=== PATIENT | male | born 1945 | race African-American/Black ===

== ENCOUNTER → 2021-04-23 | Outpatient (CLI) | payer MEDICARE, MEDICAID ==
[2019-08-27 15:00] VITALS: BP 162/85
[~2021-04-23] MED LIST: ACET325T21 PO; ASCO500C PO; BUSP5TAB PO; CHOL500062 PO; CYAN-25 PO; LEVO75TA5 PO; LISI20TA18 PO; MELO7.5T29 PO; METF10007 PO; METF500T16 PO; MULT-245 PO; ONDA4TAB7 PO; POLY2500 PO; SERT50TA PO; VITA1TAB19 PO
--- NOTE | 2021-04-23 15:44 | CARD ---
MR#: [id number] Date of Study: 04/23/2021 Ordering Physician: KAYA ADAM, Referring Physician: KAYA ADAM, Tech: Lyubov Nava [facility] APPROVED REPORT EXAM: Two-dimensional and M-mode echocardiogram with Doppler and color Doppler. Other Information Quality : AverageHR: 72bpm Rhythm : NSR INDICATION RISK FACTORS Hypertension Obesity Diabetes 2D DIMENSIONS RVDd3.5 (2.9-3.5cm)Left Atrium(2D)3.3 (1.6-4.0cm) IVSd1.2 (0.7-1.1cm)Aortic Root(2D)3.2 (2.0-3.7cm) LVDd3.9 (3.9-5.9cm)LVOT Diameter2.1 (1.8-2.4cm) PWd1.1 (0.7-1.1cm)LVDs2.7 (2.5-4.0cm) FS (%) 29.0 %SV36.4 ml Aortic Valve AoV Peak Andrey.99.1cm/sAoV VTI16.7cm AO Peak GR.3.9mmHgLVOT Peak Andrey.91.0cm/s AO Mean GR.2mmHgAVA (VMAX)3.31cm2 Mitral Valve MV E Wxbhrkkz94.1cm/sMV DECEL [id number] MV A Tojkxwau55.6cm/sE/A Ratio0.8 Pulmonary Valve PV Peak Ufssbsim005.8cm/s Tricuspid Valve TR P. Dnfrhzep944hr/sTR Peak Gr.24mmHg LEFT VENTRICLE The left ventricle is normal size. There is borderline to mild concentric left ventricular hypertroph y. The left ventricular systolic function is normal and the ejection fraction is within normal range. LV ejection fraction of 50 to 55%. There is normal LV segmental wall motion. Transmitral Doppler fl ow pattern is Grade I-abnormal relaxation pattern. RIGHT VENTRICLE The right ventricle is normal size. There is normal right ventricular wall thickness. The right ventr icular systolic function is normal. ATRIA The left atrium size is normal. The right atrium size is normal. The interatrial septum is intact wit h no evidence for an atrial septal defect or patent foramen ovale as noted on 2-D or Doppler imaging. AORTIC VALVE The aortic valve is normal in structure and function. Doppler and Color Flow revealed trace aortic re gurgitation. There is no significant aortic valvular stenosis. There is no aortic valvular vegetation . MITRAL VALVE The mitral valve is normal in structure and function. There is no evidence of mitral valve prolapse. There is no mitral valve stenosis. Doppler and Color Flow revealed no mitral valve regurgitation. TRICUSPID VALVE The tricuspid valve is normal in structure and function. Doppler and Color Flow revealed trace tricus pid regurgitation. Estimated PAP 30 mmHg. There is no tricuspid valve stenosis. PULMONIC VALVE The pulmonary valve is normal in structure and function. Doppler and Color Flow revealed no pulmonic valvular regurgitation. GREAT VESSELS The aortic root is normal in size. The ascending aorta is normal in size. The IVC is normal in size a nd collapses >50% with inspiration. PERICARDIAL EFFUSION There is no evidence of significant pericardial effusion. Critical Notification Critical Value: No <Conclusion> The left ventricle is normal size. The left ventricular systolic function is normal and the ejection fraction is within normal range. LV ejection fraction of 50 to 55%. There is normal LV segmental wall motion. There is borderline to mild concentric left ventricular hypertrophy. Doppler and Color Flow revealed trace aortic regurgitation. There is no significant aortic valvular stenosis. Doppler and Color Flow revealed no mitral valve regurgitation. Doppler and Color Flow revealed trace tricuspid regurgitation. Estimated PAP 30 mmHg. Signed by : Saurabh Murillo MD Electronically Approved : 04/23/2021 15:43:28
== END ==
LOC: ECHO 08:56
PROVIDERS: ATTEND Internal Medicine Cardiovascular Disease
DX: I51.7 Cardiomegaly (principal); R78.81 Bacteremia
CPT/HCPCS: 93306

== ENCOUNTER 2021-08-10 11:14 | Inpatient (IN) | payer MEDICARE, MEDICAID ==
[~2021-08-10] VITALS: Ht 175.3 cm; Wt 95.7 kg
[2021-08-10] MEDS ORDERED: ACET325T21 PO (17:08)
[2021-08-10] MEDS ORDERED: LEVO88TA4 PO (17:08)
[2021-08-10] MEDS ORDERED: ASCO500C PO (17:08)
[2021-08-10] MEDS ORDERED: FERR325T14 PO (17:08)
[2021-08-10] MEDS ORDERED: ONDA4TAB12 PO (17:08)
[2021-08-10] MEDS ORDERED: IPRA3AMP29 NEB (17:08)
[2021-08-10] MEDS ORDERED: LACT1CAP19 PO (17:08)
[2021-08-10 17:10] VITALS: BP 149/75
[2021-08-10] MEDS ORDERED: VIT1TABL PO (17:11)
[2021-08-10] MEDS ORDERED: SERT20OR3 PO (17:11)
[2021-08-10] MEDS ORDERED: VITS42.55 TP (17:11)
[2021-08-10] MEDS ORDERED: BUSP5TAB PO (17:11)
[2021-08-10] MEDS ORDERED: VITS A & D/LANOLIN TOPICAL OINTMENT 42GM TUBE. TP PRN (17:15)
[2021-08-10] MEDS ORDERED: ONDANSETRON ODT 4 MG TAB.RAPDIS. PO PRN (17:15)
[2021-08-10] MEDS ORDERED: ACETAMINOPHEN 325 MG TABLET. PO PRN (17:15)
[2021-08-10] MEDS: FERROUS SULFATE 325 MG TABLET. PO SCH (17:46)
[2021-08-10 19:55] VITALS: BP 141/67
[2021-08-10] MEDS: IPRATRPIUM/ALBUTEROL 0.5/2.5MG 3 ML NEBU. NEB SCH (20:16)
[2021-08-10] MEDS: LACTOBACILLUS RHAMNOSUS GG 1 CAPSULE. PO SCH (21:35)
[2021-08-10] MEDS: busPIRone 5 MG TABLET. PO SCH (21:35)
[2021-08-10] MEDS: AMOXICILLIN/K CLAV 500/125MG TABLET. PO SCH (21:35)
[2021-08-10 23:32] VITALS: BP 145/67
[2021-08-11] VITALS (7 sets, daily range): BP systolic 144–168; BP diastolic 70–77
[2021-08-11] MEDS: LEVOTHYROXINE 88 MCG TABLET PO SCH (06:24)
[2021-08-11] MEDS: FOLIC/VIT B COMP W-C (RENAL) TABLET. PO SCH (08:16)
[2021-08-11] MEDS: AMOXICILLIN/K CLAV 500/125MG TABLET. PO SCH ×2 (08:16→21:01)
[2021-08-11] MEDS: MULTIVITAMIN with MINERAL TABLET. PO SCH (08:16)
[2021-08-11] MEDS: SERTRALINE 25 MG TABLET. PO SCH (08:17)
[2021-08-11] MEDS: ASCORBIC ACID 500 MG TABLET PO SCH (08:17)
[2021-08-11] MEDS: LACTOBACILLUS RHAMNOSUS GG 1 CAPSULE. PO SCH ×2 (08:17→21:01)
[2021-08-11] MEDS: FERROUS SULFATE 325 MG TABLET. PO SCH ×2 (08:17→16:56)
[2021-08-11] MEDS: busPIRone 5 MG TABLET. PO SCH ×2 (08:17→21:01)
[2021-08-11] MEDS: IPRATRPIUM/ALBUTEROL 0.5/2.5MG 3 ML NEBU. NEB SCH ×4 (08:28→20:21)
[2021-08-11] MEDS ORDERED: IODIXANOL 320 MG/ML 50ML VIAL. ONE (10:27)
[2021-08-11] MEDS ORDERED: LIDOCAINE WITH 8.4% SOD BICARB 3 ML DISP.SYRIN. ONE (10:27)
[2021-08-11] MEDS ORDERED: MIDAZOLAM HCL/PF 2 MG/2 ML VIAL. ONE (10:48)
[2021-08-11] MEDS ORDERED: LIDOCAINE WITH 8.4% SOD BICARB 3 ML DISP.SYRIN. IJ ONE (11:30)
[2021-08-11] MEDS ORDERED: IODIXANOL 320 MG/ML 100 ML VIAL. IART ONE (11:30)
[2021-08-11 12:07] LABS: HEMATOCRIT 25.3 % (39.0-53.0); HEMOGLOBIN 7.9 g/dL (13.0-17.5); RED BLOOD COUNT 3.37 x10^6/uL (4.30-5.70); WHITE BLOOD COUNT 11.5 x10^3/uL (4.0-11.0)
[2021-08-11 12:16] LABS: CALCIUM 8.6 mg/dL (8.5-10.1); CREATININE 1.9 mg/dL (0.7-1.3); GFR 41.8; POTASSIUM 4.4 mmol/L (3.5-5.1)
--- NOTE | 2021-08-11 13:19 | HP ---
DATE OF SERVICE: 08/11/2021 ADMIT DATE: 08/10/2021 HISTORY OF PRESENT ILLNESS: The patient is a 75-year-old -Surinamese male patient, a resident at [facility] [place] [place] and [facility], who has been admitted to [facility] numerous times with multiple medical problems including a recurrent episode of gross hematuria as he has bladder cancer with bilateral hydronephrosis and has had received multiple blood transfusions. He is mostly bedbound and on his last admission to [facility], he was noted to have markedly swollen right lower extremity compared to the left and venous Doppler ultrasound showed that the patient has nonocclusive thrombus in the common femoral vein, femoral vein and popliteal vein. However, visualized calf veins appear patent on limited evaluation given that he has recurrent episode of gross hematuria that makes him not a good candidate for anticoagulation, a decision was made to transfer him to [facility] after I discussed this with him and his daughter for placement of an IVC filter. The patient himself denied any chest pain, shortness of breath, cough, phlegm or hemoptysis. PAST MEDICAL HISTORY: Significant for benign prostatic hypertrophy with bladder outlet obstruction requiring indwelling Latif catheter, hypertension, hypothyroidism, chronic anemia with recurrent episode of gross hematuria, type 2 diabetes mellitus, seems reasonably controlled. He has dementia without behavioral disturbances, did have a history of methicillin-resistant Staphylococcus aureus pneumonia and methicillin-resistant Staphylococcus aureus bacteremia, treated for a prolonged period of time with daptomycin and Zyvox. He has also bladder cancer for which he was followed by urologist at [facility], however, he was lost for followup for almost 2 years. PAST SURGICAL HISTORY: Significant for ventriculoperitoneal shunt placement for what seemed to be also primary normal pressure hydrocephalus. FAMILY HISTORY: Unremarkable. SOCIAL HISTORY: He is a resident at [facility]. He does not smoke, drink alcohol, or recreational drugs. He is mostly bedbound, wheelchair bound. His daughter is his DPOA. ALLERGIES: He has no known drug allergies. MEDICATIONS: He is currently on the following medications: He is on vitamin B complex, vitamin C 1 tablet once a day, sertraline 12.5 mg once a day, multivitamin 1 tablet once a day, ascorbic acid 500 mg daily, levothyroxine 88 mcg daily, lactobacillus rhamnosus 1 capsule twice a day, buspirone 5 mg twice a day. He was also on Augmentin 500/125 mg one tablet twice a day with food to finish the course of treatment for most recent healthcare-associated pneumonia. He is also on ferrous sulfate 325 mg twice a day, albuterol and Atrovent 3 mL by nebulizer 4 times a day, vitamin A and D ointment applied topically. He is on ondansetron 4 mg every 4 hours as needed. He is also on acetaminophen 650 mg every 4 hours as needed. PHYSICAL EXAMINATION: GENERAL: When I examined him, he looked pale, but no jaundice, cyanosis, no lymphadenopathy, no thyromegaly, no jugular venous distention. No limb edema. VITAL SIGNS: His heart rate was 70, blood pressure 163/77, temperature was 98.6, respiratory rate was 18 and oxygen saturation was 98%. HEAD, EYES, EARS, NOSE AND THROAT: Normocephalic, atraumatic. NECK: Supple. HEART: Normal first and second heart sounds. No gallop or murmur. CHEST: Clear to auscultation, no crepitation or rhonchi. ABDOMEN: Distended, soft, nontender. NEUROLOGIC: He is demented, but without any lateralizing sign. All his cranial nerves are intact. He moves extremities without difficulty; however, he is mostly bedbound, wheelchair bound. He has an indwelling Latif catheter. ASSESSMENT AND PLAN: In summary, this is a 75-year-old -Surinamese male patient who was transferred from [facility] with right lower extremity deep vein thrombosis. He has also recurrent episodes of gross hematuria as he has bladder cancer. We did consult the interventional radiologist for IVC filter placement. I will observe him here. I will repeat his lab work and as he might require blood transfusion and if he is stable tomorrow, I will discharge him back to [facility] [place] [place] and Rehab. VALERIA/AARTI DR: Parminder TID: [id number]
--- NOTE | 2021-08-11 13:36 | NUR ---
SW following. Discussed with RN. 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 Wound care following. SULY requested COVID PCR for return to facility. SULY will continue to follow.
--- NOTE | 2021-08-11 16:26 | RAD ---
08/11/2021 Procedures: 1. Diagnostic Inferior vena cavogram. 2. Inferior vena cava filter placement. Clinical Indication: DVT, contraindication anticoagulation. Consent: The procedure was explained in its entirety to the patient or the patients designated repres entative by a member of the treatment team, including a discussion of the risks, benefits and commonl y accepted alternatives to the procedure, as well as the expected consequences of no therapy whatsoev er. Discussion of the risks included, but was not limited to, those that are most frequent and thos e that are rare but possibly severe or life-threatening, as well as the possibility of unforeseen com plications. Ultrasound guided access: Ultrasound evaluation showed a patent right internal jugular vein. The right neck prepped and draped using maximal sterile technique and one percent lidocaine was used for local anesthesia. All elements of maximum sterile barrier technique was utilized. Under ultrasoun d guidance, a singlewall puncture was made into the right internal jugular vein followed by placement of a sheath. An ultrasound image of the right neck was saved and sent to PACS. Under direct fluoroscopic guidance an IVC filter was deployed in the inferior vena cava, below the renal veins. Position was confirmed with contrast. The sheath was removed. Manual pressure was held. No immediate complications were identified. Total fluoroscopy time: 1.5 minutes Dose area product 142 Fuentes centimeter squared Impression: Placement of permanent IVC filter Electronically signed by: Ruben Shoemaker MD (08/11/2021 4:23 PM) [id number]
[2021-08-12 03:06] VITALS: BP 150/65
[2021-08-12] MEDS: LEVOTHYROXINE 88 MCG TABLET PO SCH (06:43)
[2021-08-12 06:51] LABS: CREATININE 1.9 mg/dL (0.7-1.3); GFR 41.8; POTASSIUM 4.1 mmol/L (3.5-5.1)
[2021-08-12 07:00] VITALS: BP 147/65
[2021-08-12] MEDS: IPRATRPIUM/ALBUTEROL 0.5/2.5MG 3 ML NEBU. NEB SCH ×2 (07:36→11:45)
[2021-08-12] MEDS: busPIRone 5 MG TABLET. PO SCH (08:03)
[2021-08-12] MEDS: AMOXICILLIN/K CLAV 500/125MG TABLET. PO SCH (08:03)
[2021-08-12] MEDS: SERTRALINE 25 MG TABLET. PO SCH (08:03)
[2021-08-12] MEDS: MULTIVITAMIN with MINERAL TABLET. PO SCH (08:03)
[2021-08-12] MEDS: FERROUS SULFATE 325 MG TABLET. PO SCH (08:03)
[2021-08-12] MEDS: FOLIC/VIT B COMP W-C (RENAL) TABLET. PO SCH (08:03)
[2021-08-12] MEDS: ASCORBIC ACID 500 MG TABLET PO SCH (08:03)
[2021-08-12] MEDS: LACTOBACILLUS RHAMNOSUS GG 1 CAPSULE. PO SCH (08:03)
[2021-08-12 11:00] VITALS: BP 151/64
--- NOTE | 2021-08-12 11:06 | SNU/HH DC ---
DISCHARGE ORDERS DISCHARGE INFORMATION: DISCHARGE DATE: Aug 12, 2021 FINAL DIAGNOSIS BLOOD LOSS ANEMIA BLADDER CANCER WITH BONE METASTASIS RLE DVT CONDITION ON DISCHARGE: Stable CODE STATUS: Code Status: DNR/DNI JAIL: SNF STAY <30 DAYS: Yes POST DISCHARGE ORDERS: ACTIVITY ORDERS: Activity as tolerated WEIGHT BEARING STATUS: As tolerated DIET AFTER DISCHARGE: ADA TREATMENT/EQUIPMENT ORDERS: Physical Therapy For: Evalulation/Treatment Occupational Therapy For: Evaluation/Treatment DISCHARGE MEDICATIONS: Home Meds Reported Medications Buspirone Hcl (BUSPIRONE HCL) 5 Mg Tablet, 1 TAB PO BID for anxiety, #60 TAB 2 Refills 08/10/21 Vits A and D/White Pet/Lanolin (A and D Ointment) 42.5 Gm Oint...g., 42.5 GM TP PRN Q1HR PRN for SKIN CLEANSING, MISC 08/10/21 Vit B Cplx #11/Fa/C/Biot/Zn Ox (DIALYVITE WITH ZINC TABLET) 1 Each Tablet, 1 TAB PO DAILY for supplement for 30 Days, #30 TAB 0 Refills 08/10/21 Sertraline Hcl (SERTRALINE HCL ORAL CONC) 20 Mg/1 Ml Oral.conc, 12.5 MG PO DAILY for ANTI-DEPRESSANT, ML 0 Refills 08/10/21 Ondansetron (ONDANSETRON ODT) 4 Mg Tab.rapdis, 1 TAB PO PRN Q6-8HRS for nausea, #16 TAB 08/10/21 Levothyroxine Sodium (LEVOTHYROXINE SODIUM) 88 Mcg Tablet, 1 TAB PO DAILY06 for hypothyroid, #30 TAB 5 Refills 08/10/21 Lactobacillus Rhamnosus Gg (CULTURELLE) 1 Each Cap.sprink, 1 CAP PO BID for probiotic for 30 Days, #60 CAP 0 Refills 08/10/21 Ipratropium/Albuterol Sulfate (DUONEB 0.5-3(2.5) MG/3 ML) 3 Ml Ampul.neb, 3 ML NEB QID for copd, EACH 08/10/21 Ferrous Sulfate (FERROUS SULFATE) 325 Mg Tablet, 1 TAB PO BID WMEALS for anemia, #60 TAB 3 Refills 08/10/21 Ascorbic Acid (VITAMIN C) 500 Mg Capsule.er, 1 CAP PO DAILY for supplement for 30 Days, #30 CAP 0 Refills 08/10/21 Acetaminophen (ACETAMINOPHEN) 325 Mg Tablet, 2 TAB PO PRN Q4-6HRS PRN for pain or fever for 24 Days, #100 TAB 0 Refills 08/10/21 Multivitamin (MULTI VITAMIN DAILY) 1 Each Tablet, 1 TAB PO DAILY for supplement for 30 Days, #30 TAB 0 Refills 08/22/19 Discontinued Reported Medications Sertraline Hcl (ZOLOFT) 50 Mg Tablet, 1 TAB PO DAILY for depression, #30 TAB 2 Refills 08/22/19 Ondansetron Hcl (ZOFRAN) 4 Mg Tablet, 1 TAB PO Q6HRS PRN for NAUSEA, #20 TAB 08/22/19 Cholecalciferol (Vitamin D3) (Vitamin D3) 5,000 Unit Tab.rapdis, 1 TAB PO DAILY for supplement for 30 Days, #30 TAB 0 Refills 08/22/19 Ascorbic Acid (VITAMIN C) 500 Mg Capsule.er, 1 CAP PO DAILY for supplement for 30 Days, #30 CAP 0 Refills 08/22/19 Cyanocobalamin (Vitamin B-12) (VITAMIN B-12) 1,000 Mcg Tablet, 1 TAB PO DAILY for supplement for 30 Days, #30 TAB 0 Refills 08/22/19 Vitamin B Complex (B COMPLEX) 1 Each Tablet, 1 TAB PO DAILY for supplement for 30 Days, #30 TAB 0 Refills 08/22/19 Polyethylene Glycol 3350 (POLYETHYLENE GLYCOL 3350) 2,500 Gm Powder, 17 GM PO DAILY for constipation, #255 GM 0 Refills 08/22/19 Metformin Hcl (METFORMIN HCL) 1,000 Mg Tablet, 1000 MG PO DAILYWSUP for ANTI- DIABETIC, TAB 0 Refills 08/22/19 Metformin Hcl (METFORMIN HCL) 500 Mg Tablet, 750 MG PO DAILYWBKFT for ANTI- DIABETIC, TAB 0 Refills 08/22/19 Meloxicam (MELOXICAM) 7.5 Mg Tablet, 1 TAB PO DAILY for abnormal posture for 30 Days, #30 TAB 0 Refills 08/22/19 Lisinopril (LISINOPRIL) 20 Mg Tablet, 1 TAB PO DAILY for HTN, #30 TAB 5 Refills 08/22/19 Levothyroxine Sodium (LEVOTHYROXINE SODIUM) 75 Mcg Tablet, 1 TAB PO DAILY for hypothyroidism, #30 TAB 5 Refills 08/22/19 Buspirone Hcl (BUSPIRONE HCL) 5 Mg Tablet, 1 TAB PO TID for anxiety, #60 TAB 2 Refills 08/22/19 Acetaminophen (ACETAMINOPHEN) 325 Mg Tablet, 650 MG PO PRN Q4HRS PRN for FEVER > 100.3'F, TAB 08/22/19 CLAUDE TAPIA MD Aug 12, 2021 11:06
--- NOTE | 2021-08-12 11:57 | DS ---
HOSPITAL COURSE: The patient is a 75-year-old -Omani male patient, a resident at [facility], who was admitted to [facility] with healthcare-associated pneumonia and blood loss anemia due to gross hematuria secondary to bladder cancer, metastasis to the bone. When he arrived there, his right lower extremity was markedly swollen and I did a venous Doppler ultrasound showing that he has deep vein thrombosis in his right femoral vein and given that he is bleeding and is not a candidate for anticoagulation, a decision was [facility] He was seen by the interventional radiologist and underwent placement of IVC filter successfully, as he remained hemodynamically stable, stable H and H, a decision was made to transfer him back to [facility]. PHYSICAL EXAMINATION: GENERAL: When I saw him today, he looked well and was clearly in no apparent respiratory distress. He was pale, but no jaundice, cyanosis or thyromegaly. No jugular venous distention. No limb edema. VITAL SIGNS: His heart rate was 74, blood pressure was 147/65, temperature 98.7, respiratory rate was 18 and oxygen saturation was 97% on room air. HEAD, EYES, EARS, NOSE, AND THROAT: Showed he is normocephalic, atraumatic. NECK: Supple. HEART: Showed normal first and second heart sounds. No gallop, rub or murmur. CHEST: Clear to auscultation, no crepitation or rhonchi. ABDOMEN: Slightly distended, soft, nontender. NEUROLOGIC: He is awake, alert, responding appropriately. All cranial nerves intact. He moves upper extremities without difficulty; however, he is mostly bedbound, wheelchair bound. He has an indwelling Latif catheter. LABORATORY DATA: His lab work this morning showed a hemoglobin of 8.1. His chemistry remained stable with a serum sodium of 138, potassium 4.1, chloride 105, bicarbonate 26, anion gap of 7, BUN 23, creatinine 1.9. Estimated GFR was 42 mL per minute. His glucose 114 and calcium was 9. DISCHARGE MEDICATIONS: He was discharged back to [facility] to continue on acetaminophen 650 mg every 4 hours as needed, ascorbic acid 500 mg once a day, buspirone 5 mg twice a day, ferrous sulfate 325 mg twice a day, ipratropium bromide, albuterol sulfate by nebulizer 4 times a day, lactobacillus rhamnosus 1 capsule twice a day, levothyroxine sodium 88 mcg once a day, multivitamin 1 tablet once a day, ondansetron 4 mg every 6-8 hours, sertraline at 12.5 mg daily, vitamin B complex 1 tablet once a day. FINAL DISCHARGE DIAGNOSES: 1. Right lower extremity deep venous thrombosis, status post IVC filter. 2. The patient has history of bladder cancer with recurrent episode of gross hematuria. 3. Benign prostatic hypertrophy with bladder outlet obstruction requiring indwelling Latif catheter. 4. Chronic kidney disease. 5. Hypertension. 6. Hypothyroidism. 7. Chronic anemia with recurrent episode of gross hematuria. 8. Type [address]: Parminder TID: [id number]
--- NOTE | 2021-08-12 12:08 | NUR ---
SS following up with discharge planning. SS reviewed pt chart and discussed with pt RN. Pt is currently on room air. Pt is LTC resident from [facility], ; fax [phone]. COVID19 negative. Discharge orders received and sent to [facility]. Pt will discharge today and return to [facility] at 1700 via [facility] arranged by facility. Pt and pt's RN notified. Packet placed on chart.
--- NOTE | 2021-08-12 15:30 | NUR ---
Wound/Ostomy Care Wound Type/Assessment: WCRN consult for multiple wounds. Patients only remaining wound is on the distal penis. Stage III PU noted from soto catheter. Cleansed, assessed, pictured and redressed wound. Treatment Recommendations/Plan: apply barrier cream or A&D ointment BID and PRN Education provided: PU prevention and WC POC Offloading surface/device: TQ2H, float heel Recommended Referrals/Tests: na Discharge Recommendations for dressings: see above
--- NOTE | 2021-08-12 15:50 | NUR ---
Discharge Note: PT DISCHARGED TO [facility]. PT LEFT FACILITY VIA [facility]SP[facility] AT 1550. PT STABLE AND ALERT UPON DISCHARGE. PT HAD NO IV ACCESS TO REMOVE, TELE MONITOR REMOVED. REPORT CALLED TO RN AT 1540. EDUCATED ABOUT DISCHARGE INSTRUCTIONS, DISCHARGE MEDICATIONS, AND FOLLOW-UP CARE INSTRUCTIONS. PT WOUND ON PENIS PHOTOGRAPHED BY WOUND CARE UPON ROUNDING. NO OTHER OPEN AREAS NOTED PRIOR TO DISCHARGE. DRESSING TO R NECK C/D/I WITH MINIMAL SHAWDOWING. PT LEFT WITH ALL PERSONAL BELONGINGS. LETY HATCH Discharge instructions and discharge home medications reviewed with Patient and a copy given. All questions have been answered and understanding verbalized.
== END 2021-08-12 15:50 | DRG 299 ==
LOC: 5 NORTH 16:14
PROVIDERS: ADMIT Internal Medicine; ATTEND Internal Medicine
PROC: 06H03DZ Insertion of Intraluminal Device into Inferior Vena Cava, Percutaneous Approach (ICD-10-PCS; principal; 2021-08-11)
PROC: B5191ZZ Fluoroscopy of Inferior Vena Cava using Low Osmolar Contrast (ICD-10-PCS; 2021-08-11)
DX: I82.411 Acute embolism and thrombosis of right femoral vein (principal); J18.9 Pneumonia, unspecified organism; N13.8 Other obstructive and reflux uropathy; Z85.51 Personal history of malignant neoplasm of bladder; N18.9 Chronic kidney disease, unspecified; C67.9 Malignant neoplasm of bladder, unspecified; D50.0 Iron deficiency anemia secondary to blood loss (chronic); E03.9 Hypothyroidism, unspecified; E11.22 Type 2 diabetes mellitus with diabetic chronic kidney disease; F03.90 Unspecified dementia, unspecified severity, without behavioral disturbance, psychotic disturbance, mood disturbance, and anxiety; I12.9 Hypertensive chronic kidney disease with stage 1 through stage 4 chronic kidney disease, or unspecified chronic kidney disease; Z86.718 Personal history of other venous thrombosis and embolism; Z95.828 Presence of other vascular implants and grafts; Z98.2 Presence of cerebrospinal fluid drainage device; Z99.3 Dependence on wheelchair; Z74.01 Bed confinement status; N40.1 Benign prostatic hyperplasia with lower urinary tract symptoms; Y95 Nosocomial condition
CPT/HCPCS: 36415; 37191; 76937; 80048; 82962; 85018; 85027; 87426; 94640; 94760; C1880; C1892; J1644; J3490; Q9967; U0003; G0378

== ENCOUNTER 2021-09-15 15:24 | Inpatient (IN) | payer MEDICARE, MEDICAID ==
[~2021-09-15] VITALS: Ht 165.1 cm; Wt 99.8 kg
[~2021-09-15 15:24] MED LIST changes: +FERR325T14 PO; +IPRA3AMP29 NEB; +LACT1CAP19 PO; +LEVO88TA4 PO; +ONDA4TAB12 PO; +SERT20OR3 PO; +VIT1TABL PO; +VITS42.55 TP
[2021-09-15 15:45] LABS: BASO # 0.1 x10^3/uL (0.0-0.2); BASO % 1 % (0-3); EOS # 0.3 x10^3/uL (0.0-0.7); EOS % 2 % (0-3); LYMPH # 2.8 x10^3/uL (1.0-4.8); LYMPH % 19 % (24-48); MEAN CORPUSCULAR HEMOGLOBIN 21 pg (25-35); MEAN CORPUSCULAR HGB CONC 30 g/dL (31-37); MEAN CORPUSCULAR VOLUME 70 fL (79-100); MONO # 0.7 x10^3/uL (0.0-1.1); MONO % 5 % (0-9); NEUT # 10.6 x10^3/uL (1.8-7.7); NEUT % 74 % (31-73); PLATELET COUNT 342 x10^3/uL (140-400); RED BLOOD COUNT 3.14 x10^6/uL (4.30-5.70); RED CELL DISTRIBUTION WIDTH 21.3 % (11.5-14.5); WHITE BLOOD COUNT 14.5 x10^3/uL (4.0-11.0)
[2021-09-15 15:47] LABS: HEMOGLOBIN 6.6 g/dL (13.0-17.5)
[2021-09-15 15:54] LABS: CALCIUM 8.7 mg/dL (8.5-10.1); CREATININE 2.6 mg/dL (0.7-1.3); GFR 29.1; POTASSIUM 4.9 mmol/L (3.5-5.1)
[2021-09-15 15:59] LABS: ALBUMIN 1.9 g/dL (3.4-5.0); ALBUMIN/GLOBULIN RATIO 0.3 (1.0-1.7); TOTAL BILIRUBIN 0.3 mg/dL (0.2-1.0); TOTAL PROTEIN 7.4 g/dL (6.4-8.2)
[2021-09-15 16:08] LABS: PLT ESTIMATE ADEQUATE (ADEQUATE)
[2021-09-15 16:09] LABS: ANISOCYTOSIS SLIGHT; HYPOCHROMIA SLIGHT
[2021-09-15 16:10] LABS: MICROCYTOSIS SLIGHT
[2021-09-15] MEDS ORDERED: MORPHINE SULFATE 4 MG/ML INJ. IVP PRN (16:45)
[2021-09-15] MEDS ORDERED: ONDANSETRON PF 4 MG/2 ML VIAL. IVP PRN (16:45)
[2021-09-15] MEDS ORDERED: ACETAMINOPHEN 325 MG TABLET. PO PRN (16:45)
--- NOTE | 2021-09-15 16:53 | PHYS DOC ---
Past Medical History Past Medical History: Anxiety, Dementia, Depression, Diabetes-Type II, Hypertension, Hypothyroid, Pneumonia Additional Past Medical Histor: neoplasm of brain, alzheimer's, dysphagia, neuromuscular dysfunc of bladder Past Surgical History: Other Additional Past Surgical Histo: unknown surgical history Smoking Status: Never Smoker Alcohol Use: None General Adult EDM: Chief Complaint: ABNORMAL LABS HPI: HPI: Patient is a 75 year old male with history of diabetes type 2, hypertension, dementia, depression, anxiety, bladder CA with mets to the bone, presenting to the ED today with evaluated for anemia. Patient's hemoglobin at the [facility] was 6.1 and his Latif catheter has blood. They report this is a chronic problem for this patient. Review of Systems: Review of Systems: Constitutional: Denies fever or chills. [] Eyes: Denies change in visual acuity. [] HENT: Denies nasal congestion or sore throat. [] Respiratory: Denies cough or shortness of breath. [] Cardiovascular: Reports anemia. Denies chest pain or edema. [] GI: Denies abdominal pain, nausea, vomiting, bloody stools or diarrhea. [] : Reports hematuria Musculoskeletal: Denies back pain or joint pain. [] Integument: Denies rash. [] Neurologic: Denies headache, focal weakness or sensory changes. [] Endocrine: Denies polyuria or polydipsia. [] Lymphatic: Denies swollen glands. [] Psychiatric: Denies depression or anxiety. [] Above information obtained from nursing staff through EMS Heart Score: C/O Chest Pain: N/A Risk Factors: Risk Factors: DM, Current or recent (<one month) smoker, HTN, HLP, family history of CAD, obesity. Risk Scores: Score 0 - 3: 2.5% MACE over next 6 weeks - Discharge Home Score 4 - 6: 20.3% MACE over next 6 weeks - Admit for Clinical Observation Score 7 - 10: 72.7% MACE over next 6 weeks - Early Invasive Strategies Current Medications: Current Medications Medications (Trade) Dose Ordered Sig/Yasir Start Time Stop Time Status Last Admin Dose Admin Acetaminophen (Tylenol) 650 mg PRN Q4HRS PRN 09/15/21 16:45 09/16/21 16:44 UNV Morphine Sulfate (Morphine Sulfate) 4 mg PRN Q2HR PRN 09/15/21 16:45 09/16/21 16:44 UNV Ondansetron HCl (Zofran) 4 mg PRN Q8HRS PRN 09/15/21 16:45 09/16/21 16:44 UNV Allergies: Allergies: Allergies Coded Allergies Type Severity Reaction Last Updated Verified No Known Drug Allergies 08/21/19 No Physical Exam: PE: Constitutional: Well developed, well nourished, no acute distress, non-toxic appearance. [] HENT: Normocephalic, atraumatic, bilateral external ears normal, oropharynx moist, no oral exudates, nose normal. [] Eyes: PERRLA, EOMI, conjunctiva normal, no discharge. [] Neck: Normal range of motion, no tenderness, supple, no stridor. [] Cardiovascular:Heart rate regular rhythm, no murmur [] Lungs & Thorax: Bilateral breath sounds clear to auscultation [] Abdomen: Bowel sounds normal, soft, no tenderness, no masses, no pulsatile masses. [] Male : Latif catheter in place with bloody urine Skin: Warm, dry, no erythema, no rash. [] Back: No tenderness, no CVA tenderness. [] Extremities: No tenderness, no cyanosis, no clubbing, ROM intact, no edema. [] Neurologic: Alert and oriented X 3, normal motor function, normal sensory function, no focal deficits noted. [] Psychologic: Affect normal, judgement normal, mood normal. [] Current Patient Data: Labs: Laboratory Tests Test 09/15/21 15:30 White Blood Count 14.5 x10^3/uL (4.0-11.0) H Red Blood Count 3.14 x10^6/uL (4.30-5.70) L Hemoglobin 6.6 g/dL (13.0-17.5) *L Hematocrit 22.0 % (39.0-53.0) L Mean Corpuscular Volume 70 fL (79-100) L Mean Corpuscular Hemoglobin 21 pg (25-35) L Mean Corpuscular Hemoglobin Concent 30 g/dL (31-37) L Red Cell Distribution Width 21.3 % (11.5-14.5) H Platelet Count 342 x10^3/uL (140-400) Neutrophils (%) (Auto) 74 % (31-73) H Lymphocytes (%) (Auto) 19 % (24-48) L Monocytes (%) (Auto) 5 % (0-9) Eosinophils (%) (Auto) 2 % (0-3) Basophils (%) (Auto) 1 % (0-3) Neutrophils # (Auto) 10.6 x10^3/uL (1.8-7.7) H Lymphocytes # (Auto) 2.8 x10^3/uL (1.0-4.8) Monocytes # (Auto) 0.7 x10^3/uL (0.0-1.1) Eosinophils # (Auto) 0.3 x10^3/uL (0.0-0.7) Basophils # (Auto) 0.1 x10^3/uL (0.0-0.2) Platelet Estimate Adequate (ADEQUATE) Hypochromasia Slight Anisocytosis Slight Microcytosis Slight Sodium Level 139 mmol/L (136-145) Potassium Level 4.9 mmol/L (3.5-5.1) Chloride Level 102 mmol/L (98-107) Carbon Dioxide Level 30 mmol/L (21-32) Anion Gap 7 (6-14) Blood Urea Nitrogen 40 mg/dL (8-26) H Creatinine 2.6 mg/dL (0.7-1.3) H Estimated GFR (Cockcroft-Gault) 29.1 BUN/Creatinine Ratio 15 (6-20) Glucose Level 158 mg/dL (70-99) H Calcium Level 8.7 mg/dL (8.5-10.1) Total Bilirubin 0.3 mg/dL (0.2-1.0) Aspartate Amino Transferase (AST) 33 U/L (15-37) Alanine Aminotransferase (ALT) 25 U/L (16-63) Alkaline Phosphatase 323 U/L (46-116) H Total Protein 7.4 g/dL (6.4-8.2) Albumin 1.9 g/dL (3.4-5.0) L Albumin/Globulin Ratio 0.3 (1.0-1.7) L Laboratory Tests 09/15/21 15:30 Laboratory Tests 09/15/21 15:30 Vital Signs: Vital Signs Date Time Temp Pulse Resp B/P (MAP) Pulse Ox O2 Delivery O2 Flow Rate FiO2 09/15/21 15:24 97.6 87 16 139/69 (92) 99 97.6 EKG: EKG: [] Radiology/Procedures: Radiology/Procedures: [] Course & Med Decision Making: Course & Med Decision Making Pertinent Labs and Imaging studies reviewed. (See chart for details) This a 75-year-old male patient presenting to the ED today to be evaluated from a [facility] for hematuria and anemia. care home reports this is a chronic problem CBC with a WBC of 14.5, hemoglobin 6.6 with hematocrit of 22.0. Creatinine 2.6 with BUN of 40 1 unit of blood was ordered Spoke with Dr. Austin who accepted patient for admission Dragon Disclaimer: Bayron Disclaimer: This electronic medical record was generated, in whole or in part, using a voice recognition dictation system. Departure Departure Impression: Primary Impression: Anemia Qualified Codes: D64.9 - Anemia, unspecified Additional Impression: ARF (acute renal failure) Qualified Codes: N17.9 - Acute kidney failure, unspecified Disposition: ADMITTED INPATIENT Condition: STABLE Referrals: UNKNOWN PCP NAME (PCP) VEENA BLEVINS PIE CRUST MIXER September 15, 2021 16:53
[2021-09-15 19:00] VITALS: BP 130/67
[2021-09-15 20:59] VITALS: BP 130/67
[2021-09-15] MEDS: busPIRone 5 MG TABLET. PO SCH (21:00)
[2021-09-15] MEDS: LACTOBACILLUS RHAMNOSUS GG 1 CAPSULE. PO SCH (21:00)
[2021-09-15 21:14] VITALS: BP 134/68
[2021-09-15] MEDS: IPRATRPIUM/ALBUTEROL 0.5/2.5MG 3 ML NEBU. NEB SCH (21:39)
[2021-09-15] MEDS: ONDANSETRON ODT 4 MG TAB.RAPDIS. PO SCH (22:00)
[2021-09-15 22:14] VITALS: BP 135/67
[2021-09-15 23:00] VITALS: BP 137/69
[2021-09-15 23:14] VITALS: BP 137/69
[2021-09-16 02:29] LABS: RBC,URINE TNTC /HPF (0-2)
[2021-09-16 02:30] LABS: BACTERIA,URINE MODERATE /HPF (0-FEW)
[2021-09-16 03:00] VITALS: BP 118/62
[2021-09-16] MEDS: ONDANSETRON ODT 4 MG TAB.RAPDIS. PO SCH ×3 (06:00→22:00)
[2021-09-16] MEDS: LEVOTHYROXINE 88 MCG TABLET PO SCH (06:10)
[2021-09-16 07:00] VITALS: BP 129/63
[2021-09-16] MEDS: IPRATRPIUM/ALBUTEROL 0.5/2.5MG 3 ML NEBU. NEB SCH ×4 (07:33→21:04)
[2021-09-16] MEDS: LACTOBACILLUS RHAMNOSUS GG 1 CAPSULE. PO SCH ×2 (09:03→21:01)
[2021-09-16] MEDS: FERROUS SULFATE 325 MG TABLET. PO SCH ×2 (09:03→18:53)
[2021-09-16] MEDS: SERTRALINE 25 MG TABLET. PO SCH (09:03)
[2021-09-16] MEDS: busPIRone 5 MG TABLET. PO SCH ×2 (09:03→21:01)
[2021-09-16] MEDS: IV NORMAL SALINE 1000ML BAG 1,000 ML IV SCH ×3 (09:30→22:16)
[2021-09-16 09:47] LABS: HEMATOCRIT 23.2 % (39.0-53.0); HEMOGLOBIN 7.2 g/dL (13.0-17.5); RED BLOOD COUNT 3.23 x10^6/uL (4.30-5.70); RED CELL DISTRIBUTION WIDTH 22.1 % (11.5-14.5)
[2021-09-16 10:06] LABS: ALBUMIN 1.9 g/dL (3.4-5.0); ALBUMIN/GLOBULIN RATIO 0.4 (1.0-1.7); CALCIUM 8.8 mg/dL (8.5-10.1); CREATININE 2.7 mg/dL (0.7-1.3); GFR 27.9; POTASSIUM 4.9 mmol/L (3.5-5.1); TOTAL BILIRUBIN 0.5 mg/dL (0.2-1.0); TOTAL PROTEIN 7.3 g/dL (6.4-8.2)
--- NOTE | 2021-09-16 10:47 | NUR ---
CBI started at bedside per LARISA Arzate.
--- NOTE | 2021-09-16 10:56 | PDOC2 ---
UROLOGY CONSULT DOS: DATE: 09/16/21 TIME: 10:50 Reason for Consult: Gross hematuria 75M admitted to the hospital for anemia and gross hematuria. Patient has indwelling catheter for chronic retention. He has dementia and is a very poor historian. He arrived to the hospital with a catheter. He is unsure when the last time this was changed. On arrival, Latif with grossly bloody output. Initial hemoglobin was 6.6 and he was transfused 1 unit of blood, today hemoglobin 7.2. Urine is concerning for infection. Again, history is very limited as patient has dementia. History obtained from chart and nursing. He does not complain of abdominal pain. ROS Unable to obtain as patient confused Current Medications Current Medications Ondansetron HCl (Zofran) 4 mg PRN Q8HRS PRN IVP NAUSEA/VOMITING; Start 09/15/21 at 16:45; Stop 09/16/21 at 16:44 Morphine Sulfate (Morphine Sulfate) 4 mg PRN Q2HR PRN IVP PAIN; Start 09/15/21 at 16:45; Stop 09/16/21 at 16:44 Acetaminophen (Tylenol) 650 mg PRN Q4HRS PRN PO FEVER > 100.3'F Last administered on 09/15/21at 18:16; Start 09/15/21 at 16:45; Stop 09/16/21 at 16:44 Buspirone HCl (Buspar) 5 mg BID PO Last administered on 09/16/21at 09:03; Start 09/15/21 at 21:00 Ferrous Sulfate (Feosol) 325 mg BID WMEALS PO Last administered on 09/16/21at 09:03; Start 09/16/21 at 08:00 Albuterol/ Ipratropium (Duoneb) 3 ml QID NEB Last administered on 09/16/21at 07:33; Start 09/15/21 at 21:00 Lactobacillus Rhamnosus (Culturelle) 1 cap BID PO Last administered on 09/16/21at 09:03; Start 09/15/21 at 21:00 Levothyroxine Sodium (Synthroid) 88 mcg DAILY06 PO Last administered on 09/16/21at 06:10; Start 09/16/21 at 06:00 Ondansetron HCl (Zofran Odt) 4 mg Q8HRS PO ; Start 09/15/21 at 22:00 Sertraline HCl (Zoloft) 12.5 mg DAILY PO Last administered on 09/16/21at 09:03; Start 09/16/21 at 09:00 Sodium Chloride 1,000 ml @ 100 mls/hr Q10H IV Last administered on 09/16/21at 09:30; Start 09/16/21 at 09:30 Active Scripts Active Reported Buspirone Hcl 5 Mg Tablet 1 Tab PO BID A and D Ointment (Vits A and D/White Pet/Lanolin) 42.5 Gm Oint...g. 42.5 Gm TP PRN Q1HR PRN Dialyvite With Zinc Tablet (Vit B Cplx #11/Fa/C/Biot/Zn Ox) 1 Each Tablet 1 Tab PO DAILY 30 Days Sertraline Hcl Oral Conc (Sertraline Hcl) 20 Mg/1 Ml Oral.conc 12.5 Mg PO DAILY Ondansetron Odt (Ondansetron) 4 Mg Tab.rapdis 1 Tab PO PRN Q6-8HRS Levothyroxine Sodium 88 Mcg Tablet 1 Tab PO DAILY06 Culturelle (Lactobacillus Rhamnosus Gg) 1 Each Cap.sprink 1 Cap PO BID 30 Days Duoneb 0.5-3(2.5) Mg/3 Ml (Albuterol/Ipratropium) 3 Ml Ampul.neb 3 Ml NEB QID Ferrous Sulfate 325 Mg Tablet 1 Tab PO BID WMEALS Vitamin C (Ascorbic Acid) 500 Mg Capsule.er 1 Cap PO DAILY 30 Days Acetaminophen 325 Mg Tablet 2 Tab PO PRN Q4-6HRS PRN 24 Days Multi Vitamin Daily (Multivitamin) 1 Each Tablet 1 Tab PO DAILY 30 Days Allergies: Coded Allergies: No Known Drug Allergies (Unverified , 08/21/19) Physical Examination GENERAL: awake, alert, confused, slightly agitated SKIN: warm, dry RESPIRATORY: Aerating well, symmetrical expansion GI: Soft, nontender, no guarding, no rebound : Edema to the penis, 16 Surinamese Latif draining grossly bloody urine and several clots, meatal erosion, no CVA tenderness MUSCULOSKELETAL: Moves all extremities, no edema NEURO: No gross abnormalities PSYCHIATRIC: Patient confused and agitated, altered DOES THIS PATIENT HAVE URINARY: Yes VITALS Vital Signs Date Time Temp Pulse Resp B/P (MAP) Pulse Ox O2 Delivery O2 Flow Rate FiO2 09/16/21 08:01 Nasal Cannula 2.0 09/16/21 07:33 97 09/16/21 07:00 98.1 73 18 129/63 (85) 98.1 Labs Laboratory Tests Test 09/15/21 15:30 09/15/21 21:24 09/16/21 02:05 09/16/21 07:31 White Blood Count 14.5 x10^3/uL (4.0-11.0) Red Blood Count 3.14 x10^6/uL (4.30-5.70) Hemoglobin 6.6 g/dL (13.0-17.5) Hematocrit 22.0 % (39.0-53.0) Mean Corpuscular Volume 70 fL (79-100) Mean Corpuscular Hemoglobin 21 pg (25-35) Mean Corpuscular Hemoglobin Concent 30 g/dL (31-37) Red Cell Distribution Width 21.3 % (11.5-14.5) Platelet Count 342 x10^3/uL (140-400) Neutrophils (%) (Auto) 74 % (31-73) Lymphocytes (%) (Auto) 19 % (24-48) Monocytes (%) (Auto) 5 % (0-9) Eosinophils (%) (Auto) 2 % (0-3) Basophils (%) (Auto) 1 % (0-3) Neutrophils # (Auto) 10.6 x10^3/uL (1.8-7.7) Lymphocytes # (Auto) 2.8 x10^3/uL (1.0-4.8) Monocytes # (Auto) 0.7 x10^3/uL (0.0-1.1) Eosinophils # (Auto) 0.3 x10^3/uL (0.0-0.7) Basophils # (Auto) 0.1 x10^3/uL (0.0-0.2) Platelet Estimate Adequate (ADEQUATE) Hypochromasia Slight Anisocytosis Slight Microcytosis Slight Sodium Level 139 mmol/L (136-145) Potassium Level 4.9 mmol/L (3.5-5.1) Chloride Level 102 mmol/L (98-107) Carbon Dioxide Level 30 mmol/L (21-32) Anion Gap 7 (6-14) Blood Urea Nitrogen 40 mg/dL (8-26) Creatinine 2.6 mg/dL (0.7-1.3) Estimated GFR (Cockcroft-Gault) 29.1 BUN/Creatinine Ratio 15 (6-20) Glucose Level 158 mg/dL (70-99) Calcium Level 8.7 mg/dL (8.5-10.1) Total Bilirubin 0.3 mg/dL (0.2-1.0) Aspartate Amino Transf (AST/SGOT) 33 U/L (15-37) Alanine Aminotransferase (ALT/SGPT) 25 U/L (16-63) Alkaline Phosphatase 323 U/L (46-116) Total Protein 7.4 g/dL (6.4-8.2) Albumin 1.9 g/dL (3.4-5.0) Albumin/Globulin Ratio 0.3 (1.0-1.7) Glucose (Fingerstick) 143 mg/dL (70-99) 131 mg/dL (70-99) Urine Collection Type Unknown Urine Color (Auto) Red Urine Turbidity Bloody Urine pH (Auto) (<5.0-8.0) Urine Specific [place] (1.000-1.030) Urine Protein (Auto) mg/dL (Negative) Urine Glucose (Auto)(UA) mg/dL (Negative) Urine Ketones (Auto) mg/dL (Negative) Urine Blood (Auto) (Negative) Urine Nitrite (Negative) Urine Bilirubin (Auto) (Negative) Urine Urobilinogen (Auto) mg/dL (Normal) Urine Leukocyte Esterase (Auto) (Negative) Urine RBC Tntc /HPF (0-2) Urine WBC 5-10 /HPF (0-4) Urine Squamous Epithelial Cells Occ /LPF Urine Bacteria Moderate /HPF (0-FEW) Urine Mucus Slight /LPF Test 09/16/21 09:30 White Blood Count 14.0 x10^3/uL (4.0-11.0) Red Blood Count 3.23 x10^6/uL (4.30-5.70) Hemoglobin 7.2 g/dL (13.0-17.5) Hematocrit 23.2 % (39.0-53.0) Mean Corpuscular Volume 72 fL (79-100) Mean Corpuscular Hemoglobin 22 pg (25-35) Mean Corpuscular Hemoglobin Concent 31 g/dL (31-37) Red Cell Distribution Width 22.1 % (11.5-14.5) Platelet Count 306 x10^3/uL (140-400) Sodium Level 142 mmol/L (136-145) Potassium Level 4.9 mmol/L (3.5-5.1) Chloride Level 105 mmol/L (98-107) Carbon Dioxide Level 29 mmol/L (21-32) Anion Gap 8 (6-14) Blood Urea Nitrogen 40 mg/dL (8-26) Creatinine 2.7 mg/dL (0.7-1.3) Estimated GFR (Cockcroft-Gault) 27.9 BUN/Creatinine Ratio 15 (6-20) Glucose Level 141 mg/dL (70-99) Calcium Level 8.8 mg/dL (8.5-10.1) Total Bilirubin 0.5 mg/dL (0.2-1.0) Aspartate Amino Transf (AST/SGOT) 36 U/L (15-37) Alanine Aminotransferase (ALT/SGPT) 27 U/L (16-63) Alkaline Phosphatase 320 U/L (46-116) Total Protein 7.3 g/dL (6.4-8.2) Albumin 1.9 g/dL (3.4-5.0) Albumin/Globulin Ratio 0.4 (1.0-1.7) Laboratory Tests Test 09/15/21 15:30 09/15/21 21:24 09/16/21 02:05 09/16/21 07:31 White Blood Count 14.5 x10^3/uL (4.0-11.0) Red Blood Count 3.14 x10^6/uL (4.30-5.70) Hemoglobin 6.6 g/dL (13.0-17.5) Hematocrit 22.0 % (39.0-53.0) Mean Corpuscular Volume 70 fL (79-100) Mean Corpuscular Hemoglobin 21 pg (25-35) Mean Corpuscular Hemoglobin Concent 30 g/dL (31-37) Red Cell Distribution Width 21.3 % (11.5-14.5) Platelet Count 342 x10^3/uL (140-400) Neutrophils (%) (Auto) 74 % (31-73) Lymphocytes (%) (Auto) 19 % (24-48) Monocytes (%) (Auto) 5 % (0-9) Eosinophils (%) (Auto) 2 % (0-3) Basophils (%) (Auto) 1 % (0-3) Neutrophils # (Auto) 10.6 x10^3/uL (1.8-7.7) Lymphocytes # (Auto) 2.8 x10^3/uL (1.0-4.8) Monocytes # (Auto) 0.7 x10^3/uL (0.0-1.1) Eosinophils # (Auto) 0.3 x10^3/uL (0.0-0.7) Basophils # (Auto) 0.1 x10^3/uL (0.0-0.2) Platelet Estimate Adequate (ADEQUATE) Hypochromasia Slight Anisocytosis Slight Microcytosis Slight Sodium Level 139 mmol/L (136-145) Potassium Level 4.9 mmol/L (3.5-5.1) Chloride Level 102 mmol/L (98-107) Carbon Dioxide Level 30 mmol/L (21-32) Anion Gap 7 (6-14) Blood Urea Nitrogen 40 mg/dL (8-26) Creatinine 2.6 mg/dL (0.7-1.3) Estimated GFR (Cockcroft-Gault) 29.1 BUN/Creatinine Ratio 15 (6-20) Glucose Level 158 mg/dL (70-99) Calcium Level 8.7 mg/dL (8.5-10.1) Total Bilirubin 0.3 mg/dL (0.2-1.0) Aspartate Amino Transf (AST/SGOT) 33 U/L (15-37) Alanine Aminotransferase (ALT/SGPT) 25 U/L (16-63) Alkaline Phosphatase 323 U/L (46-116) Total Protein 7.4 g/dL (6.4-8.2) Albumin 1.9 g/dL (3.4-5.0) Albumin/Globulin Ratio 0.3 (1.0-1.7) Glucose (Fingerstick) 143 mg/dL (70-99) 131 mg/dL (70-99) Urine Collection Type Unknown Urine Color (Auto) Red Urine Turbidity Bloody Urine pH (Auto) (<5.0-8.0) Urine Specific [place] (1.000-1.030) Urine Protein (Auto) mg/dL (Negative) Urine Glucose (Auto)(UA) mg/dL (Negative) Urine Ketones (Auto) mg/dL (Negative) Urine Blood (Auto) (Negative) Urine Nitrite (Negative) Urine Bilirubin (Auto) (Negative) Urine Urobilinogen (Auto) mg/dL (Normal) Urine Leukocyte Esterase (Auto) (Negative) Urine RBC Tntc /HPF (0-2) Urine WBC 5-10 /HPF (0-4) Urine Squamous Epithelial Cells Occ /LPF Urine Bacteria Moderate /HPF (0-FEW) Urine Mucus Slight /LPF Test 09/16/21 09:30 White Blood Count 14.0 x10^3/uL (4.0-11.0) Red Blood Count 3.23 x10^6/uL (4.30-5.70) Hemoglobin 7.2 g/dL (13.0-17.5) Hematocrit 23.2 % (39.0-53.0) Mean Corpuscular Volume 72 fL (79-100) Mean Corpuscular Hemoglobin 22 pg (25-35) Mean Corpuscular Hemoglobin Concent 31 g/dL (31-37) Red Cell Distribution Width 22.1 % (11.5-14.5) Platelet Count 306 x10^3/uL (140-400) Sodium Level 142 mmol/L (136-145) Potassium Level 4.9 mmol/L (3.5-5.1) Chloride Level 105 mmol/L (98-107) Carbon Dioxide Level 29 mmol/L (21-32) Anion Gap 8 (6-14) Blood Urea Nitrogen 40 mg/dL (8-26) Creatinine 2.7 mg/dL (0.7-1.3) Estimated GFR (Cockcroft-Gault) 27.9 BUN/Creatinine Ratio 15 (6-20) Glucose Level 141 mg/dL (70-99) Calcium Level 8.8 mg/dL (8.5-10.1) Total Bilirubin 0.5 mg/dL (0.2-1.0) Aspartate Amino Transf (AST/SGOT) 36 U/L (15-37) Alanine Aminotransferase (ALT/SGPT) 27 U/L (16-63) Alkaline Phosphatase 320 U/L (46-116) Total Protein 7.3 g/dL (6.4-8.2) Albumin 1.9 g/dL (3.4-5.0) Albumin/Globulin Ratio 0.4 (1.0-1.7) Assessment/Plan -- Gross hematuria, anemia Patient with chronic indwelling Latif, unsure the last time this was exchanged. He is from a facility and history is extremely limited as patient has dementia and no family in the room. Patient's initial hemoglobin on arrival is 6.6, transfuse 1 unit of blood in the emergency department. Urine concerning for infection. Would culture her urine and empirically treat at this time. If culture positive, 14-day course of culture specific antibiotics. He does not take any anticoagulation according to his medication list and would avoid if possible. We will start continuous bladder irrigation as well as manual irrigation for gross hematuria. Procedure: 10 cc balloon deflated from indwelling Latif catheter. 16 Surinamese Latif catheter removed from urethra. Patient prepped in a sterile fashion. Using a 22 Surinamese three-way Latif (no 24Fr available in hospital), inserted into urethra. Grossly bloody urine in return. 30 cc balloon inflated. Patient was attached to continuous bladder irrigation at moderate speed. Bladder was manually irrigated with several moderate size clots in return. Patient tolerated procedure well. Secured to a StatLock and bedside bag. Will plan for continuous bladder irrigation. Nursing to manually irrigate as needed. Will order CT scan without contrast to rule out upper tract abnormalities. Recent CT 1 month ago did show a kidney stone to the distal UVJ and will reassess this with new imaging. Creatinine is elevated at 2.7. We will continue to trend. Should improve with proper irrigation and outflow. Proscar for prostatic bleeding. Urology will follow. ROSALIE ALBERT September 16, 2021 10:56
[2021-09-16 11:00] VITALS: BP 127/66
--- NOTE | 2021-09-16 11:30 | HP ---
DATE OF SERVICE: 09/16/2021 ADMIT DATE: 09/15/2021 HISTORY OF PRESENT ILLNESS: The patient is a 75-year-old -[place] male patient, a resident at [facility], who was brought to the Emergency Room of [facility] with anemia. He apparently has lab work done in the [facility] and his hemoglobin was found to be low at about 6.1 g/dL and was transferred to [facility] for further evaluation and treatment. The patient himself denied any complaint. 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 He was followed before by the Urology team at [facility]. I actually made two appointments for him to be seen there and has never made it there. He was recently admitted to this facility with anemia as well as pneumonia and left lower extremity DVT, for which he underwent IVC filter as he continued to have bleeding and gross hematuria. PAST MEDICAL HISTORY: Significant for benign prostatic hypertrophy, bladder outlet obstruction requiring indwelling Latif catheter, hypertension, hypothyroidism, chronic anemia with recurrent episode of gross hematuria secondary to malignant neoplasm of the bladder metastases, type 2 diabetes mellitus that seems to be reasonably controlled. He has dementia without behavioral disturbance. History of methicillin-resistant Staphylococcus aureus pneumonia and methicillin-resistant Staphylococcus aureus bacteremia, treated with a prolonged course of daptomycin and Zyvox. He has also bladder cancer with metastases and bilateral hydronephrosis and chronic kidney disease. PAST SURGICAL HISTORY: Significant for ventriculoperitoneal shunt placement for what seemed to be primarily normal pressure hydrocephalus and has had IVC filter placed successfully on last admission. FAMILY HISTORY: Unremarkable. SOCIAL HISTORY: Resident at [facility]. He does not smoke, drink alcohol or use recreational drugs. He is mostly bedbound, wheelchair bound. His daughter is his DPOA. ALLERGIES: He has no known drug allergies. MEDICATIONS: He is currently on the following medication: He is on ipratropium bromide, albuterol sulfate by nebulizer 4 times a day, ferrous sulfate 325 mg twice a day, acetaminophen 650 mg every 4-6 hours, sertraline 12.5 mg daily, buspirone 5 mg twice a day, ondansetron 4 mg every 6-8 hours, Lactobacillus rhamnosus 1 capsule twice a day, levothyroxine sodium 88 mcg 1 tablet once a day, vitamin D and A ointment apply topically as needed, vitamin B complex 1 tablet once a day, ascorbic acid 500 mg once a day, multivitamin 1 tablet once a day. PHYSICAL EXAMINATION: GENERAL: On arrival to the Emergency Room, the patient looked well and was clearly in no apparent respiratory distress. He was pale, but no jaundiced or cyanosed. No thyromegaly, no jugular venous distention. No limb edema. VITAL SIGNS: His heart rate was 80, blood pressure is 137/69, temperature was 98.4, respiratory rate was 14 and oxygen saturation was 99% on 2 liters of oxygen. HEAD, EYES, EARS, NOSE, AND THROAT: Showed normocephalic, atraumatic. NECK: Supple. HEART: Showed normal first and second heart sounds. No gallop, rub or murmur. CHEST: Clear to auscultation, no crepitation or rhonchi. ABDOMEN: Distended, soft, nontender. NEUROLOGIC: He is awake, alert, responding appropriately. All cranial nerves intact. He moves upper extremities without difficulty. He is mostly bedbound, wheelchair bound. He has benign prostatic hypertrophy with bladder outlet obstruction requiring indwelling Latif catheter. LABORATORY DATA: On arrival showed a white cell count of 14.5, hemoglobin 6.6, hematocrit 22, MCV 70 and platelet count of 342,000 with a manual differential shows 74% polymorphs, 19% lymphocytes, 5% monocytes. His chemistry showed a serum sodium 139, potassium 4.9, chloride 102, bicarbonate 30, anion gap of 7, BUN 40, creatinine 2.6. Estimated GFR was 29 mL per minute. His glucose 158, calcium was 8.7. Total bilirubin, AST, ALT were normal. Alkaline phosphatase is slightly elevated. Total protein 7.4, albumin was 1.9. His urinalysis showed his urine to be red, bloody with too numerous to count rbc's, 5-10 wbc's and moderate amount of bacteria. ASSESSMENT AND PLAN: So in summary: 1. This is a 75-year-old -[place] male patient with yet again another episode of acute blood loss anemia secondary to gross hematuria as he has malignant neoplasm of the bladder with bilateral hydronephrosis with metastases to the bone. 2. Acute on chronic kidney injury. 3. Hypertension. 4. Hypothyroidism. 5. Type 2 diabetes mellitus. 6. Dementia. My plan is to repeat all his lab work again. Continue with all his current medication. I will start him on IV fluid as he has also acute on chronic kidney injury. LIO/KEENAN DR: Parminder TID: [id number]
[2021-09-16] MEDS: FINASTERIDE 5 MG TABLET. PO SCH (12:48)
[2021-09-16 15:00] VITALS: BP 120/65
--- NOTE | 2021-09-16 15:25 | NUR ---
Bladder manually irrigated with approx. 30cc NS. 3 audrey sized clots removed.
--- NOTE | 2021-09-16 16:00 | RAD ---
CT ABDOMEN+PELVIS WO History: Gross hematuria. Comparison: 07/10/2021, 03/27/2021 Technique: Noncontrast CT of the abdomen and pelvis. Findings: Left greater than right basilar consolidation versus atelectasis. Coronary artery calcifications. The liver, gallbladder, pancreas, spleen, and adrenal glands are unremarkable. There is moderate bilateral hydronephroureter with right greater than left urothelial thickening. No nephrolithiasis. Bilateral renal cysts. Diffuse wall thickening of the bladder which is partially dec ompressed by Latif catheter. Fat stranding around the bladder There is retroperitoneal adenopathy which is increasing from comparison (for example 1.1 cm left josué aortic lymph node (axial 105). Bulky conglomerate left pelvic sidewall adenopathy measures 5.2 x 2.3 cm (axial 173). Prominent bilateral inguinal lymph nodes. Mild aortoiliac calcification without aneurysm. Infrarenal permanent IVC filter. The stomach and smal l bowel are unremarkable. Moderate colonic stool burden with prominent stool at the rectum. A anterio r abdominal wall shunt catheter coils in the right pelvis. Diffusely decreased osseous mineralization. No acute osseous abnormality.. Mild lower body anasarca. Impression: 1. Moderate bilateral hydronephroureter with right greater than left urothelial thickening and diffu se bladder wall thickening. Correlate for urinary tract infection. 2. Retroperitoneal and pelvic adenopathy, increasing. Correlate for primary malignancy. 3. Left greater than right basilar consolidations versus atelectasis. ------ Exposure: One or more of the following individualized dose reduction techniques were utilized for thi s examination: 1. Automated exposure control 2. Adjustment of the mA and/or kV according to patient size 3. Use of iterative reconstruction technique. Electronically signed by: Oscar Smith MD (09/16/2021 3:54 PM) [id number]
[2021-09-16 19:00] VITALS: BP 134/67
[2021-09-16 23:00] VITALS: BP 132/70
[2021-09-17] VITALS (12 sets, daily range): BP systolic 119–149; BP diastolic 56–80
[2021-09-17 05:37] LABS: HEMATOCRIT 22.3 % (39.0-53.0); RED BLOOD COUNT 3.07 x10^6/uL (4.30-5.70); RED CELL DISTRIBUTION WIDTH 21.9 % (11.5-14.5); WHITE BLOOD COUNT 13.6 x10^3/uL (4.0-11.0)
[2021-09-17 05:51] LABS: HEMOGLOBIN 6.9 g/dL (13.0-17.5)
--- NOTE | 2021-09-17 05:55 | NUR ---
Lab called for critical lab values @ [phone], message taken and given to BAY Nagy @ [phone].
[2021-09-17] MEDS: ONDANSETRON ODT 4 MG TAB.RAPDIS. PO SCH ×3 (06:00→22:15)
--- NOTE | 2021-09-17 06:04 | NUR ---
13,250 cont. bladder irrigation in but unable to document, given error message that 4,000 was the most I could document.
[2021-09-17] MEDS: LEVOTHYROXINE 88 MCG TABLET PO SCH (06:19)
[2021-09-17] MEDS: IPRATRPIUM/ALBUTEROL 0.5/2.5MG 3 ML NEBU. NEB SCH ×4 (07:53→19:28)
[2021-09-17] MEDS: FINASTERIDE 5 MG TABLET. PO SCH (08:31)
[2021-09-17] MEDS: LACTOBACILLUS RHAMNOSUS GG 1 CAPSULE. PO SCH ×2 (08:31→22:14)
[2021-09-17] MEDS: busPIRone 5 MG TABLET. PO SCH ×2 (08:31→22:14)
[2021-09-17] MEDS: FERROUS SULFATE 325 MG TABLET. PO SCH ×2 (08:31→17:11)
[2021-09-17] MEDS: SERTRALINE 25 MG TABLET. PO SCH (08:32)
[2021-09-17] MEDS: MULTIVITAMIN with MINERAL TABLET. PO SCH (11:07)
[2021-09-17] MEDS: ASCORBIC ACID 500 MG TABLET PO SCH ×2 (11:07→22:14)
--- NOTE | 2021-09-17 11:12 | PDOC ---
PROGRESS NOTE DATE OF SERVICE: DATE: 09/17/21 TIME: 11:07 CHIEF COMPLAINT: Patient still confused but appears at baseline Has had CBI going at moderate speed with clear urine output SUBJECTIVE: HPI: Duration: [] Quality: [] Severity: [] Site/Location: [] Problems: Problems Medical Problems: (1) Anemia Status: Acute (2) ARF (acute renal failure) Status: Acute OBJECTIVE: Vital Signs: Vital Signs Date Time Temp Pulse Resp B/P (MAP) Pulse Ox O2 Delivery O2 Flow Rate FiO2 09/17/21 11:05 98.5 78 20 136/72 98.5 09/17/21 10:10 98.4 79 24 130/68 98.4 09/17/21 09:43 98.2 86 20 136/68 98.2 09/17/21 07:58 Room Air 09/17/21 07:56 96 Room Air 09/17/21 07:00 97.6 75 17 149/80 (103) 95 Room Air 97.6 09/17/21 03:00 83 14 141/70 (93) 94 Room Air 09/16/21 23:00 98.4 83 14 132/70 (90) 94 Room Air 98.4 09/16/21 21:08 100 Room Air 09/16/21 20:00 Room Air 09/16/21 19:00 98.4 98 14 134/67 (89) 92 Room Air 98.4 09/16/21 16:25 98 Room Air 09/16/21 15:00 98.2 80 18 120/65 (83) 95 Room Air 98.2 09/16/21 11:40 98 Room Air I & O Intake and Output 09/17/21 07:00 Intake Total 900 ml Output Total 76061 ml Balance -64116 ml Intake Oral 900 ml Output Urine Total 47192 ml PHYSICAL EXAM: Physical Exam: GENERAL: awake, alert, confused, slightly agitated SKIN: warm, dry RESPIRATORY: Aerating well, symmetrical expansion GI: Soft, nontender, no guarding, no rebound : 22 Dutch three-way Latif draining clear output, no clots, CBI at moderate speed MUSCULOSKELETAL: Moves all extremities, no edema NEURO: No gross abnormalities PSYCHIATRIC: Confused, unable to assess LABS: Laboratory Tests Test 09/15/21 15:30 09/15/21 21:24 09/16/21 02:05 09/16/21 07:31 White Blood Count 14.5 x10^3/uL (4.0-11.0) Red Blood Count 3.14 x10^6/uL (4.30-5.70) Hemoglobin 6.6 g/dL (13.0-17.5) Hematocrit 22.0 % (39.0-53.0) Mean Corpuscular Volume 70 fL (79-100) Mean Corpuscular Hemoglobin 21 pg (25-35) Mean Corpuscular Hemoglobin Concent 30 g/dL (31-37) Red Cell Distribution Width 21.3 % (11.5-14.5) Platelet Count 342 x10^3/uL (140-400) Neutrophils (%) (Auto) 74 % (31-73) Lymphocytes (%) (Auto) 19 % (24-48) Monocytes (%) (Auto) 5 % (0-9) Eosinophils (%) (Auto) 2 % (0-3) Basophils (%) (Auto) 1 % (0-3) Neutrophils # (Auto) 10.6 x10^3/uL (1.8-7.7) Lymphocytes # (Auto) 2.8 x10^3/uL (1.0-4.8) Monocytes # (Auto) 0.7 x10^3/uL (0.0-1.1) Eosinophils # (Auto) 0.3 x10^3/uL (0.0-0.7) Basophils # (Auto) 0.1 x10^3/uL (0.0-0.2) Platelet Estimate Adequate (ADEQUATE) Hypochromasia Slight Anisocytosis Slight Microcytosis Slight Sodium Level 139 mmol/L (136-145) Potassium Level 4.9 mmol/L (3.5-5.1) Chloride Level 102 mmol/L (98-107) Carbon Dioxide Level 30 mmol/L (21-32) Anion Gap 7 (6-14) Blood Urea Nitrogen 40 mg/dL (8-26) Creatinine 2.6 mg/dL (0.7-1.3) Estimated GFR (Cockcroft-Gault) 29.1 BUN/Creatinine Ratio 15 (6-20) Glucose Level 158 mg/dL (70-99) Calcium Level 8.7 mg/dL (8.5-10.1) Total Bilirubin 0.3 mg/dL (0.2-1.0) Aspartate Amino Transf (AST/SGOT) 33 U/L (15-37) Alanine Aminotransferase (ALT/SGPT) 25 U/L (16-63) Alkaline Phosphatase 323 U/L (46-116) Total Protein 7.4 g/dL (6.4-8.2) Albumin 1.9 g/dL (3.4-5.0) Albumin/Globulin Ratio 0.3 (1.0-1.7) Glucose (Fingerstick) 143 mg/dL (70-99) 131 mg/dL (70-99) Urine Collection Type Unknown Urine Color (Auto) Red Urine Turbidity Bloody Urine pH (Auto) (<5.0-8.0) Urine Specific [place] (1.000-1.030) Urine Protein (Auto) mg/dL (Negative) Urine Glucose (Auto)(UA) mg/dL (Negative) Urine Ketones (Auto) mg/dL (Negative) Urine Blood (Auto) (Negative) Urine Nitrite (Negative) Urine Bilirubin (Auto) (Negative) Urine Urobilinogen (Auto) mg/dL (Normal) Urine Leukocyte Esterase (Auto) (Negative) Urine RBC Tntc /HPF (0-2) Urine WBC 5-10 /HPF (0-4) Urine Squamous Epithelial Cells Occ /LPF Urine Bacteria Moderate /HPF (0-FEW) Urine Mucus Slight /LPF Test 09/16/21 09:30 09/16/21 12:02 09/16/21 16:47 09/16/21 21:04 White Blood Count 14.0 x10^3/uL (4.0-11.0) Red Blood Count 3.23 x10^6/uL (4.30-5.70) Hemoglobin 7.2 g/dL (13.0-17.5) Hematocrit 23.2 % (39.0-53.0) Mean Corpuscular Volume 72 fL (79-100) Mean Corpuscular Hemoglobin 22 pg (25-35) Mean Corpuscular Hemoglobin Concent 31 g/dL (31-37) Red Cell Distribution Width 22.1 % (11.5-14.5) Platelet Count 306 x10^3/uL (140-400) Sodium Level 142 mmol/L (136-145) Potassium Level 4.9 mmol/L (3.5-5.1) Chloride Level 105 mmol/L (98-107) Carbon Dioxide Level 29 mmol/L (21-32) Anion Gap 8 (6-14) Blood Urea Nitrogen 40 mg/dL (8-26) Creatinine 2.7 mg/dL (0.7-1.3) Estimated GFR (Cockcroft-Gault) 27.9 BUN/Creatinine Ratio 15 (6-20) Glucose Level 141 mg/dL (70-99) Calcium Level 8.8 mg/dL (8.5-10.1) Total Bilirubin 0.5 mg/dL (0.2-1.0) Aspartate Amino Transf (AST/SGOT) 36 U/L (15-37) Alanine Aminotransferase (ALT/SGPT) 27 U/L (16-63) Alkaline Phosphatase 320 U/L (46-116) Total Protein 7.3 g/dL (6.4-8.2) Albumin 1.9 g/dL (3.4-5.0) Albumin/Globulin Ratio 0.4 (1.0-1.7) Glucose (Fingerstick) 138 mg/dL (70-99) 171 mg/dL (70-99) 170 mg/dL (70-99) Test 09/17/21 04:50 09/17/21 07:47 White Blood Count 13.6 x10^3/uL (4.0-11.0) Red Blood Count 3.07 x10^6/uL (4.30-5.70) Hemoglobin 6.9 g/dL (13.0-17.5) Hematocrit 22.3 % (39.0-53.0) Mean Corpuscular Volume 73 fL (79-100) Mean Corpuscular Hemoglobin 23 pg (25-35) Mean Corpuscular Hemoglobin Concent 31 g/dL (31-37) Red Cell Distribution Width 21.9 % (11.5-14.5) Platelet Count 283 x10^3/uL (140-400) Thyroid Stimulating Hormone (TSH) 2.321 uIU/mL (0.358-3.74) Glucose (Fingerstick) 126 mg/dL (70-99) MEDICATIONS: Current Medications Medications (Trade) Dose Ordered Sig/Yasir Start Time Stop Time Status Last Admin Dose Admin Acetaminophen (Tylenol) 650 mg PRN Q4HRS PRN 09/15/21 16:45 09/16/21 16:44 DC 09/15/21 18:16 650 MG Albuterol/ Ipratropium (Duoneb) 3 ml QID 09/15/21 21:00 09/17/21 07:53 3 ML Ascorbic Acid (Vitamin C) 500 mg BID 09/17/21 10:00 Buspirone HCl (Buspar) 5 mg BID 09/15/21 21:00 09/17/21 08:31 5 MG Ferrous Sulfate (Feosol) 325 mg BID WMEALS 09/16/21 08:00 09/17/21 08:31 325 MG Finasteride (Proscar) 5 mg DAILY 09/16/21 11:00 09/17/21 08:31 5 MG Lactobacillus Rhamnosus (Culturelle) 1 cap BID 09/15/21 21:00 09/17/21 08:31 1 CAP Levothyroxine Sodium (Synthroid) 88 mcg DAILY06 09/16/21 06:00 09/17/21 06:19 88 MCG Morphine Sulfate (Morphine Sulfate) 4 mg PRN Q2HR PRN 09/15/21 16:45 09/16/21 16:44 DC Multivitamins (Thera M Plus) 1 tab DAILY 09/17/21 10:00 Ondansetron HCl (Zofran Odt) 4 mg Q8HRS 09/15/21 22:00 09/16/21 14:25 4 MG Ondansetron HCl (Zofran) 4 mg PRN Q8HRS PRN 09/15/21 16:45 09/16/21 16:44 DC Sertraline HCl (Zoloft) 12.5 mg DAILY 09/16/21 09:00 09/17/21 08:32 12.5 MG Sodium Chloride 1,000 ml @ 100 mls/hr Q10H 09/16/21 09:30 09/16/21 22:16 100 MLS/HR ASSESSMENT & PLAN -- Gross hematuria Had CBI overnight at moderate speed. Output now clear. His hemoglobin did drop from 7.2 to 6.9, receiving packed red blood cells now. Reviewed CT imaging showing bilateral moderate hydronephrosis and bladder wall thickening, suggestive of UTI. No obstructing stone. Also found to have retroperitoneal and pelvic adenopathy concerning for malignancy. Would defer to the hospitalist for management of this. Will complete 14-day course of culture specific antibiotics, urine culture p ending. Patient will require a outpatient cystoscopy after completing culture specific antibiotics for 2 weeks and having sterile urine prior to procedure. Nursing to restart CBI should patient become bloody again. Can manually irrigate as needed. Continue with Proscar daily for prostatic bleeding. Urology will follow Problem List: Problems Medical Problems: (1) Anemia Status: Acute (2) ARF (acute renal failure) Status: Acute ROSALIE ALBERT September 17, 2021 11:11
--- NOTE | 2021-09-17 11:24 | NUR ---
CBI turned off per urology.
--- NOTE | 2021-09-17 11:45 | NUR ---
Wound/Ostomy Care Wound Type/Assessment: Patient seen per wound care consult. See wound assessment. Patient has DFU to right and left heels and IAD to bilateral buttocks and ischiums. Wounds cleansed, assessed, measured, and the right heel pictured. Patient is known to us from previous admissions at [facility]. Treatment Recommendations/Plan: recommendations for honey alginate and foam dressing to left heel, skin prep and foam dressing to right heel, and A&D ointment to buttocks/ischiums. Dressings applied and patient tolerated well. Change heel dressings on Tuesday. Education provided: Unable to educated due to mental status. Offloading surface/device: Patient repositioned to right side using wedge and bilateral heels floated. Recommended Referrals/Tests: N/A Discharge Recommendations for dressings: Dressing change instructions left in room as well as extra honey alginate for next dressing change. No other wounds noted. Bed lowered and call light in reach, alarm in place. Wound care will follow up on 09/24/21.
--- NOTE | 2021-09-17 12:50 | NUR ---
Urine blood, CBI resumed.
[2021-09-17] MEDS: IV NORMAL SALINE 1000ML BAG 1,000 ML IV SCH ×2 (13:48→23:40)
[2021-09-17] MEDS: cefTRIAXone IV Push 1 GM VIAL. IVP SCH (15:45)
[2021-09-17] MEDS: VITS A & D/LANOLIN TOPICAL OINTMENT 42GM TUBE. TP SCH (22:15)
--- NOTE | 2021-09-17 22:16 | PN ---
DATE: 09/17/2021 SUBJECTIVE: The patient is a 75-year-old -[place] male patient who was admitted with anemia and gross hematuria. He has also acute on chronic kidney injury. He is known to have benign prostatic hypertrophy with bladder outlet obstruction as well as bladder cancer with metastases as well as bilateral hydronephrosis. He apparently dropped his H and H again to 6.9 and he is receiving his second unit of packed RBCs. On questioning him this morning, he denied any complaint. PHYSICAL EXAMINATION: GENERAL: When I examined him, he was pale, not jaundiced or cyanosed, no lymphadenopathy, no thyromegaly, no jugular venous distention. No lower limb edema. VITAL SIGNS: His heart rate was 78, blood pressure was 136/72, temperature was 98.5, respiratory rate 20, and oxygen saturation was 96%. HEAD, EYES, EARS, NOSE, AND THROAT: Normocephalic, atraumatic. NECK: Supple. HEART: Showed normal first and second heart sounds. No gallop, rub or murmur. CHEST: Clear to auscultation, no crepitation or rhonchi. ABDOMEN: Distended, soft, nontender. NEUROLOGIC: He is awake, alert, responding appropriately. All cranial nerves are intact. He moves upper extremities to much good extent than lower extremities, mostly bed-bound. GENITOURINARY: He has an indwelling Latif catheter and his urine seems to be much clearer today. His intake and output are incompletely recorded. LABORATORY DATA: His blood count this morning was 13,600, hemoglobin 6.9, hematocrit 22, MCV 73 and platelet count 283,000. His urine was sent for culture and sensitivity, the result of which is still pending at the time of this dictation. PLAN: Continue with IV fluid. Continue to monitor his H and H and transfuse him as needed. Await the result of the urine culture and continue to monitor his blood sugar and adjust insulin as needed. GREGORIO DR: Parminder TID: [id number]
[2021-09-18] VITALS (7 sets, daily range): BP systolic 131–157; BP diastolic 62–83
[2021-09-18] MEDS: LEVOTHYROXINE 88 MCG TABLET PO SCH (05:58)
[2021-09-18] MEDS: ONDANSETRON ODT 4 MG TAB.RAPDIS. PO SCH ×3 (05:58→21:51)
[2021-09-18 07:10] LABS: ALBUMIN 1.8 g/dL (3.4-5.0); ALBUMIN/GLOBULIN RATIO 0.3 (1.0-1.7); CALCIUM 8.5 mg/dL (8.5-10.1); CREATININE 2.5 mg/dL (0.7-1.3); GFR 30.5; POTASSIUM 4.4 mmol/L (3.5-5.1); TOTAL BILIRUBIN 0.5 mg/dL (0.2-1.0)
[2021-09-18] MEDS: IPRATRPIUM/ALBUTEROL 0.5/2.5MG 3 ML NEBU. NEB SCH ×4 (07:15→20:21)
[2021-09-18 07:17] LABS: HEMATOCRIT 25.6 % (39.0-53.0); HEMOGLOBIN 8.2 g/dL (13.0-17.5); RED BLOOD COUNT 3.51 x10^6/uL (4.30-5.70); RED CELL DISTRIBUTION WIDTH 22.6 % (11.5-14.5); WHITE BLOOD COUNT 15.2 x10^3/uL (4.0-11.0)
[2021-09-18] MEDS: FERROUS SULFATE 325 MG TABLET. PO SCH ×2 (08:33→16:45)
[2021-09-18] MEDS: LACTOBACILLUS RHAMNOSUS GG 1 CAPSULE. PO SCH ×2 (08:33→21:49)
[2021-09-18] MEDS: SERTRALINE 25 MG TABLET. PO SCH (08:33)
[2021-09-18] MEDS: MULTIVITAMIN with MINERAL TABLET. PO SCH (08:33)
[2021-09-18] MEDS: ASCORBIC ACID 500 MG TABLET PO SCH ×2 (08:33→21:49)
[2021-09-18] MEDS: busPIRone 5 MG TABLET. PO SCH ×2 (08:34→21:49)
[2021-09-18] MEDS: FINASTERIDE 5 MG TABLET. PO SCH (08:34)
[2021-09-18] MEDS: VITS A & D/LANOLIN TOPICAL OINTMENT 42GM TUBE. TP SCH ×2 (08:34→21:49)
[2021-09-18] MEDS: IV NORMAL SALINE 1000ML BAG 1,000 ML IV SCH ×2 (09:52→21:30)
--- NOTE | 2021-09-18 10:42 | PDOC ---
PROGRESS NOTE DATE OF SERVICE: DATE: 09/18/21 TIME: 10:38 CHIEF COMPLAINT: hematuria SUBJECTIVE: HPI: Patient sleeping comfortably in bed. No complaints overnight per nursing. Soto with clear yellow urine and CBI off. Problems: Problems Medical Problems: (1) Anemia Status: Acute (2) ARF (acute renal failure) Status: Acute OBJECTIVE: Vital Signs: Vital Signs Date Time Temp Pulse Resp B/P (MAP) Pulse Ox O2 Delivery O2 Flow Rate FiO2 09/18/21 08:00 Room Air 2.0 09/18/21 07:15 94 Room Air 09/18/21 07:15 98.3 74 16 157/67 (97) 91 Room Air 98.3 09/18/21 03:14 98.6 82 20 133/62 (85) 94 Room Air 98.6 09/17/21 23:24 98.0 85 18 134/56 (82) 94 Room Air 98.0 09/17/21 20:05 Room Air 09/17/21 19:29 Room Air 09/17/21 19:20 97.5 84 18 142/66 (91) 93 Room Air 97.5 09/17/21 15:59 Room Air 09/17/21 14:41 97.6 74 20 124/75 (91) 96 Room Air 97.6 09/17/21 14:20 97.6 74 20 124/75 97.6 09/17/21 13:05 98.6 80 20 119/62 98.6 09/17/21 12:05 98.4 84 20 135/74 98.4 09/17/21 11:40 97 Room Air 09/17/21 11:05 98.5 78 20 136/72 98.5 09/17/21 11:00 98.4 84 19 135/71 (92) 95 Room Air 98.4 I & O Intake and Output 09/18/21 07:00 Intake Total 960 ml Output Total 19509 ml Balance -08874 ml Intake Oral 960 ml Output Urine Total 74979 ml # Bowel Movements 1 PHYSICAL EXAM: Physical Exam: General: Pleasant, no acute distress, well groomed Eyes: conjunctiva anicteric, eyes full range of motion ENT: moist oral mucosa, normal dentition Neck: Trachea midline, no masses Abdomen: nontender, nondistended, no hepatosplenomegaly, no masses Skin: no rashes or skin lesions on visualized skin Psych: sleeping : 3 way soto with clear yellow urine LABS: Laboratory Tests Test 09/15/21 15:30 09/15/21 21:24 09/16/21 02:05 09/16/21 07:31 White Blood Count 14.5 x10^3/uL (4.0-11.0) Red Blood Count 3.14 x10^6/uL (4.30-5.70) Hemoglobin 6.6 g/dL (13.0-17.5) Hematocrit 22.0 % (39.0-53.0) Mean Corpuscular Volume 70 fL (79-100) Mean Corpuscular Hemoglobin 21 pg (25-35) Mean Corpuscular Hemoglobin Concent 30 g/dL (31-37) Red Cell Distribution Width 21.3 % (11.5-14.5) Platelet Count 342 x10^3/uL (140-400) Neutrophils (%) (Auto) 74 % (31-73) Lymphocytes (%) (Auto) 19 % (24-48) Monocytes (%) (Auto) 5 % (0-9) Eosinophils (%) (Auto) 2 % (0-3) Basophils (%) (Auto) 1 % (0-3) Neutrophils # (Auto) 10.6 x10^3/uL (1.8-7.7) Lymphocytes # (Auto) 2.8 x10^3/uL (1.0-4.8) Monocytes # (Auto) 0.7 x10^3/uL (0.0-1.1) Eosinophils # (Auto) 0.3 x10^3/uL (0.0-0.7) Basophils # (Auto) 0.1 x10^3/uL (0.0-0.2) Platelet Estimate Adequate (ADEQUATE) Hypochromasia Slight Anisocytosis Slight Microcytosis Slight Sodium Level 139 mmol/L (136-145) Potassium Level 4.9 mmol/L (3.5-5.1) Chloride Level 102 mmol/L (98-107) Carbon Dioxide Level 30 mmol/L (21-32) Anion Gap 7 (6-14) Blood Urea Nitrogen 40 mg/dL (8-26) Creatinine 2.6 mg/dL (0.7-1.3) Estimated GFR (Cockcroft-Gault) 29.1 BUN/Creatinine Ratio 15 (6-20) Glucose Level 158 mg/dL (70-99) Calcium Level 8.7 mg/dL (8.5-10.1) Total Bilirubin 0.3 mg/dL (0.2-1.0) Aspartate Amino Transf (AST/SGOT) 33 U/L (15-37) Alanine Aminotransferase (ALT/SGPT) 25 U/L (16-63) Alkaline Phosphatase 323 U/L (46-116) Total Protein 7.4 g/dL (6.4-8.2) Albumin 1.9 g/dL (3.4-5.0) Albumin/Globulin Ratio 0.3 (1.0-1.7) Glucose (Fingerstick) 143 mg/dL (70-99) 131 mg/dL (70-99) Urine Collection Type Unknown Urine Color (Auto) Red Urine Turbidity Bloody Urine pH (Auto) (<5.0-8.0) Urine Specific [place] (1.000-1.030) Urine Protein (Auto) mg/dL (Negative) Urine Glucose (Auto)(UA) mg/dL (Negative) Urine Ketones (Auto) mg/dL (Negative) Urine Blood (Auto) (Negative) Urine Nitrite (Negative) Urine Bilirubin (Auto) (Negative) Urine Urobilinogen (Auto) mg/dL (Normal) Urine Leukocyte Esterase (Auto) (Negative) Urine RBC Tntc /HPF (0-2) Urine WBC 5-10 /HPF (0-4) Urine Squamous Epithelial Cells Occ /LPF Urine Bacteria Moderate /HPF (0-FEW) Urine Mucus Slight /LPF Test 09/16/21 09:30 09/16/21 12:02 09/16/21 16:47 09/16/21 21:04 White Blood Count 14.0 x10^3/uL (4.0-11.0) Red Blood Count 3.23 x10^6/uL (4.30-5.70) Hemoglobin 7.2 g/dL (13.0-17.5) Hematocrit 23.2 % (39.0-53.0) Mean Corpuscular Volume 72 fL (79-100) Mean Corpuscular Hemoglobin 22 pg (25-35) Mean Corpuscular Hemoglobin Concent 31 g/dL (31-37) Red Cell Distribution Width 22.1 % (11.5-14.5) Platelet Count 306 x10^3/uL (140-400) Sodium Level 142 mmol/L (136-145) Potassium Level 4.9 mmol/L (3.5-5.1) Chloride Level 105 mmol/L (98-107) Carbon Dioxide Level 29 mmol/L (21-32) Anion Gap 8 (6-14) Blood Urea Nitrogen 40 mg/dL (8-26) Creatinine 2.7 mg/dL (0.7-1.3) Estimated GFR (Cockcroft-Gault) 27.9 BUN/Creatinine Ratio 15 (6-20) Glucose Level 141 mg/dL (70-99) Calcium Level 8.8 mg/dL (8.5-10.1) Total Bilirubin 0.5 mg/dL (0.2-1.0) Aspartate Amino Transf (AST/SGOT) 36 U/L (15-37) Alanine Aminotransferase (ALT/SGPT) 27 U/L (16-63) Alkaline Phosphatase 320 U/L (46-116) Total Protein 7.3 g/dL (6.4-8.2) Albumin 1.9 g/dL (3.4-5.0) Albumin/Globulin Ratio 0.4 (1.0-1.7) Glucose (Fingerstick) 138 mg/dL (70-99) 171 mg/dL (70-99) 170 mg/dL (70-99) Test 09/17/21 04:50 09/17/21 07:47 09/17/21 12:17 09/17/21 16:58 White Blood Count 13.6 x10^3/uL (4.0-11.0) Red Blood Count 3.07 x10^6/uL (4.30-5.70) Hemoglobin 6.9 g/dL (13.0-17.5) Hematocrit 22.3 % (39.0-53.0) Mean Corpuscular Volume 73 fL (79-100) Mean Corpuscular Hemoglobin 23 pg (25-35) Mean Corpuscular Hemoglobin Concent 31 g/dL (31-37) Red Cell Distribution Width 21.9 % (11.5-14.5) Platelet Count 283 x10^3/uL (140-400) Thyroid Stimulating Hormone (TSH) 2.321 uIU/mL (0.358-3.74) Glucose (Fingerstick) 126 mg/dL (70-99) 152 mg/dL (70-99) 134 mg/dL (70-99) Test 09/17/21 20:39 09/18/21 05:45 09/18/21 08:04 Glucose (Fingerstick) 149 mg/dL (70-99) 123 mg/dL (70-99) White Blood Count 15.2 x10^3/uL (4.0-11.0) Red Blood Count 3.51 x10^6/uL (4.30-5.70) Hemoglobin 8.2 g/dL (13.0-17.5) Hematocrit 25.6 % (39.0-53.0) Mean Corpuscular Volume 73 fL (79-100) Mean Corpuscular Hemoglobin 23 pg (25-35) Mean Corpuscular Hemoglobin Concent 32 g/dL (31-37) Red Cell Distribution Width 22.6 % (11.5-14.5) Platelet Count 287 x10^3/uL (140-400) Sodium Level 139 mmol/L (136-145) Potassium Level 4.4 mmol/L (3.5-5.1) Chloride Level 104 mmol/L (98-107) Carbon Dioxide Level 25 mmol/L (21-32) Anion Gap 10 (6-14) Blood Urea Nitrogen 34 mg/dL (8-26) Creatinine 2.5 mg/dL (0.7-1.3) Estimated GFR (Cockcroft-Gault) 30.5 BUN/Creatinine Ratio 14 (6-20) Glucose Level 129 mg/dL (70-99) Calcium Level 8.5 mg/dL (8.5-10.1) Total Bilirubin 0.5 mg/dL (0.2-1.0) Aspartate Amino Transf (AST/SGOT) 38 U/L (15-37) Alanine Aminotransferase (ALT/SGPT) 26 U/L (16-63) Alkaline Phosphatase 326 U/L (46-116) Total Protein 7.0 g/dL (6.4-8.2) Albumin 1.8 g/dL (3.4-5.0) Albumin/Globulin Ratio 0.3 (1.0-1.7) Microbiology 09/16/21 Urine Culture - Final, Complete Proteus Mirabilis MEDICATIONS: Current Medications Medications (Trade) Dose Ordered Sig/Yasir Start Time Stop Time Status Last Admin Dose Admin Acetaminophen (Tylenol) 650 mg PRN Q4HRS PRN 09/15/21 16:45 09/16/21 16:44 DC 09/15/21 18:16 650 MG Albuterol/ Ipratropium (Duoneb) 3 ml QID 09/15/21 21:00 09/18/21 07:15 3 ML Ascorbic Acid (Vitamin C) 500 mg BID 09/17/21 10:00 09/18/21 08:33 500 MG Buspirone HCl (Buspar) 5 mg BID 09/15/21 21:00 09/18/21 08:34 5 MG Ceftriaxone Sodium (Rocephin) 1 gm Q24H 09/17/21 16:00 09/17/21 15:45 1 GM Ferrous Sulfate (Feosol) 325 mg BID WMEALS 09/16/21 08:00 09/18/21 08:33 325 MG Finasteride (Proscar) 5 mg DAILY 09/16/21 11:00 09/18/21 08:34 5 MG Lactobacillus Rhamnosus (Culturelle) 1 cap BID 09/15/21 21:00 09/18/21 08:33 1 CAP Levothyroxine Sodium (Synthroid) 88 mcg DAILY06 09/16/21 06:00 09/18/21 05:58 88 MCG Morphine Sulfate (Morphine Sulfate) 4 mg PRN Q2HR PRN 09/15/21 16:45 09/16/21 16:44 DC Multivitamins (Thera M Plus) 1 tab DAILY 09/17/21 10:00 09/18/21 08:33 1 TAB Ondansetron HCl (Zofran Odt) 4 mg Q8HRS 09/15/21 22:00 09/18/21 05:58 4 MG Ondansetron HCl (Zofran) 4 mg PRN Q8HRS PRN 09/15/21 16:45 09/16/21 16:44 DC Sertraline HCl (Zoloft) 12.5 mg DAILY 09/16/21 09:00 09/18/21 08:33 12.5 MG Sodium Chloride 1,000 ml @ 100 mls/hr Q10H 09/16/21 09:30 09/18/21 09:52 100 MLS/HR Vitamin A/Vitamin D (Vitamin A & D Ointment) 1 germain BID 09/17/21 21:00 09/18/21 08:34 1 GERMAIN ASSESSMENT & PLAN -- Gross hematuria Had CBI overnight at moderate speed. Output now clear since 09/17 Got one unit PRBC yesterday. Hgb stable this AM. Reviewed CT imaging showing bilateral moderate hydronephrosis and bladder wall thickening, suggestive of UTI. No obstructing stone. Also found to have retroperitoneal and pelvic adenopathy concerning for malignancy. Would defer to the hospitalist for management of this. Will complete 14-day course of culture specific antibiotics, urine culture pending. Patient will require a outpatient cystoscopy after completing culture specific antibiotics for 2 weeks and having sterile urine prior to procedure. Appears that patient has seen Dr Abreu in the past. Would recommend followup with him, but if needed can follow up in our office. Discussed with nursing that catheter can be downsized for patient comfort. Continue with Proscar daily for prostatic bleeding. OK to dc from urology standpoint. As stated before, would recommend outpatient followup. Please give facility our number to facilitate that. ---I was called this afternoon from nursing that catheter placement was difficult and now hematuria noted in catheter. Per nursing, was unable to insert catheter all the way due to pain and inflated balloon with resistance. On exam, urine in catheter bag pink with some clots noted. I removed 5ml out of catheter balloon and catheter pulled out with significant clots attached to it, along with on patient urethra. I prepped patient in sterile fashion and inserted 20fr [address] catheter with return of pink to clear urine. 10ml inserted into catheter balloon. I irrigated catheter with minimal clots removed. Urine clear when I was finished. I will return tomorrow. If catheter remains clear tomorrow, ok to discharge from urology standpoint with followup as outlined above. Problem List: Problems Medical Problems: (1) Anemia Status: Acute (2) ARF (acute renal failure) Status: Acute ANGELI[employer] September 18, 2021 10:42
[2021-09-18] MEDS: fentaNYL PF VIAL 100 MCG/2 ML VIAL IVP PRN (12:05)
[2021-09-18] MEDS: cefTRIAXone IV Push 1 GM VIAL. IVP SCH (16:45)
--- NOTE | 2021-09-19 02:06 | PN ---
DATE: 09/18/2021 SUBJECTIVE: The patient is resting, slightly propped up in bed, sleeping comfortably and he is arousable. On questioning him, he denied any complaint. Nursing staff did not voice any concern. He continued to be on continuous bladder irrigation and his urine is lightly tinged with blood. PHYSICAL EXAMINATION: GENERAL: When I examined him, he was pale, but not jaundiced, cyanosed. No lymphadenopathy, no thyromegaly, no jugular venous distention. No limb edema. VITAL SIGNS: His heart rate was 74, blood pressure is 157/67, temperature was 98.3, respiratory rate was 16 and oxygen saturation was 94% on 2 liters of oxygen. The rest of clinical exam is stable. His intake was 900, output was 15,725. LABORATORY DATA: His lab work this morning showed a white cell count of 15.2, hemoglobin 8.2, hematocrit 26, MCV 73 and platelet count 187,000. His chemistry showed a serum sodium 139, potassium 4.4, chloride 104, bicarbonate 25, anion gap of 10, BUN 34, creatinine 2.5. Estimated GFR was 30 mL per minute. His glucose 126, calcium was 8.5. Total bilirubin, AST, ALT slightly elevated. Alkaline phosphatase is also markedly elevated. Total protein 7, albumin was 1.8. His urinalysis showed his urine culture has grown more than 100,000 colony forming units per mL of gram-negative rods and less than 10,000 colony forming units per mL of normal genitourinary yecenia. The organism identified as Proteus mirabilis, sensitive to all cephalosporins, particularly to ceftriaxone. PLAN: My plan is to continue with continuous bladder irrigation. Continue with ceftriaxone. Continue to monitor his H and H and kidney function and if he remains stable, he can be discharged back to [facility] to continue treatment for 2 weeks prior to his appointment as an outpatient for cystoscopy. ROOSEVELT/ANETA DR: Parminder TID: [id number]
[2021-09-19 03:00] VITALS: BP 130/75
[2021-09-19] MEDS: LEVOTHYROXINE 88 MCG TABLET PO SCH (06:03)
[2021-09-19] MEDS: ONDANSETRON ODT 4 MG TAB.RAPDIS. PO SCH ×3 (06:04→21:19)
[2021-09-19 07:00] VITALS: BP 142/71
[2021-09-19 07:05] LABS: HEMATOCRIT 24.6 % (39.0-53.0); HEMOGLOBIN 7.6 g/dL (13.0-17.5); RED BLOOD COUNT 3.33 x10^6/uL (4.30-5.70); RED CELL DISTRIBUTION WIDTH 22.7 % (11.5-14.5); WHITE BLOOD COUNT 12.8 x10^3/uL (4.0-11.0)
[2021-09-19] MEDS: FINASTERIDE 5 MG TABLET. PO SCH (07:11)
[2021-09-19] MEDS: IPRATRPIUM/ALBUTEROL 0.5/2.5MG 3 ML NEBU. NEB SCH ×4 (07:38→20:38)
[2021-09-19 07:44] LABS: CALCIUM 8.3 mg/dL (8.5-10.1); CREATININE 2.8 mg/dL (0.7-1.3); GFR 26.7
[2021-09-19] MEDS: MULTIVITAMIN with MINERAL TABLET. PO SCH (07:47)
[2021-09-19] MEDS: busPIRone 5 MG TABLET. PO SCH ×2 (07:47→21:19)
[2021-09-19] MEDS: LACTOBACILLUS RHAMNOSUS GG 1 CAPSULE. PO SCH ×2 (07:47→21:19)
[2021-09-19] MEDS: ASCORBIC ACID 500 MG TABLET PO SCH ×2 (07:48→21:19)
[2021-09-19] MEDS: SERTRALINE 25 MG TABLET. PO SCH (07:48)
[2021-09-19] MEDS: FERROUS SULFATE 325 MG TABLET. PO SCH ×2 (07:48→17:59)
[2021-09-19] MEDS: IV NORMAL SALINE 1000ML BAG 1,000 ML IV SCH ×2 (07:49→17:30)
[2021-09-19] MEDS: VITS A & D/LANOLIN TOPICAL OINTMENT 42GM TUBE. TP SCH ×2 (07:56→21:20)
--- NOTE | 2021-09-19 08:41 | NUR ---
Oncology consult attempted. VM was left for call back.
--- NOTE | 2021-09-19 09:47 | PN ---
DATE: 09/19/2021 SUBJECTIVE: The patient is resting, slightly propped up in bed, in no apparent distress, awake, alert. On questioning him, he denied any complaint. Nursing staff stated he continued to have blood-tinged urine, unfortunately his lab work showed that his creatinine is actually rising, has risen up to 2.8. His H and H has also slightly dropped down from 8.2 to 7.6. PHYSICAL EXAMINATION: GENERAL: When I examined him, he was pale, but not jaundiced or cyanosed. No lymphadenopathy, no thyromegaly, no jugular venous distention. No limb edema. VITAL SIGNS: His heart rate was 78, blood pressure is 142/71, temperature was 98.1, respiratory rate was 18 and oxygen saturation was 97%. HEAD, EYES, EARS, NOSE, AND THROAT: Normocephalic, atraumatic. NECK: Supple. HEART: Showed normal first and second heart sounds. No gallop, rub or murmur. CHEST: Showed central trachea, equal bilateral chest expansion, air entry, vesicular breath sounds. No crepitation or rhonchi. NEUROLOGIC: He is awake, alert, responding appropriately. All cranial nerves intact. He moves upper extremities to much good extent than lower extremities. He is mostly bedbound. He has an indwelling Latif catheter. His intake over the last 24 hour was 960, output was 12,750. LABORATORY DATA: This morning showed a white cell count of 12.8, hemoglobin 7.6, hematocrit 24, MCV 74 and platelet count 271,000. His serum sodium 142, potassium 4, chloride 108, bicarbonate 24, anion gap of 10, BUN 35, creatinine 2.8. Estimated GFR was 26 mL per minute. His glucose 141, calcium was 8.3. CT scan of the abdomen and pelvis showed the patient has moderate bilateral hydronephroureter with right greater than left urothelial thickening and diffuse bladder wall thickening, correlate for urinary tract infection, does have retroperitoneal and pelvic adenopathy, increasing and left greater than right basilar consolidation versus atelectasis. ASSESSMENT: 1. In summary, this is a 75-year-old -[place] male patient who was admitted with recurrent episode of gross hematuria and blood loss anemia. He has so far received 2 units of packed rbc's. 2. Urinary tract infection growing Proteus mirabilis, sensitive to IV ceftriaxone. 3. Acute on chronic kidney injury. 4. Bladder cancer with bilateral hydroureteronephrosis and also retroperitoneal adenopathy, which is increasing. He also has bulky conglomerate left pelvic sidewall adenopathy measuring 5.2 x 2.3 and prominent bilateral inguinal lymph nodes. The patient has also deep vein thrombosis of his left lower extremity for which he had an IVC filter as the patient could not be anticoagulated. PLAN: My plan is to continue with IV fluid. Continue with IV antibiotic. The patient was followed before by the urologist at [facility] that has retired. I made an appointment twice to be seen, but unfortunately the facility has not made any arrangements for transportation. I will consult with Dr. Up for evaluation and treatment. LIO/KEENAN GIRARD: LIO/shayan TID: [id number]
[2021-09-19 11:00] VITALS: BP 130/69
--- NOTE | 2021-09-19 11:10 | PDOC ---
PROGRESS NOTE DATE OF SERVICE: DATE: 09/19/21 TIME: 11:05 CHIEF COMPLAINT: HUSAM SUBJECTIVE: HPI: Patient resting in bed watching television. I spoke to nursing this morning who stated catheter had vazquez red urine with clots noted in bag. CBI restarted that time. On my arrival, catheter with light red urine. CBI running slowly. Clear yellow urine in catheter tubing. Patient with no complaints. Problems: Problems Medical Problems: (1) Anemia Status: Acute (2) ARF (acute renal failure) Status: Acute OBJECTIVE: Vital Signs: Vital Signs Date Time Temp Pulse Resp B/P (MAP) Pulse Ox O2 Delivery O2 Flow Rate FiO2 09/19/21 11:00 98.1 84 18 130/69 (89) 93 Room Air 98.1 09/19/21 07:38 96 Room Air 09/19/21 07:00 98.1 78 18 142/71 (94) 97 Room Air 98.1 09/19/21 03:00 99.2 90 18 130/75 (93) 93 Room Air 99.2 09/18/21 23:00 99.8 96 18 131/69 (89) 92 Room Air 99.8 09/18/21 20:24 94 Room Air 09/18/21 19:50 Room Air 09/18/21 19:00 98.5 90 18 136/83 (100) 94 Room Air 98.5 09/18/21 15:19 94 Room Air 09/18/21 15:00 98.3 72 18 149/69 (95) 94 Room Air 98.3 09/18/21 12:41 98.3 74 16 154/68 (96) 94 Room Air 98.3 09/18/21 12:40 18 94 Room Air 2.0 09/18/21 12:05 18 Room Air I & O Intake and Output 09/19/21 07:00 Intake Total 700 ml Output Total 3300 ml Balance -2600 ml Intake Oral 700 ml Output Urine Total 3300 ml PHYSICAL EXAM: Physical Exam: General: Pleasant, no acute distress, well groomed Eyes: conjunctiva anicteric, eyes full range of motion ENT: moist oral mucosa, normal dentition Neck: Trachea midline, no masses Respiratory: unlabored breathing, not using accessory muscles, no crackles or wheezes Abdomen: nontender, nondistended, no hepatosplenomegaly, no masses Skin: no rashes or skin lesions on visualized skin Psych: confused : 20fr 3 way catheter with clear red urine in bag and clear yellow urine in tubing LABS: Laboratory Tests Test 09/16/21 12:02 09/16/21 16:47 09/16/21 21:04 09/17/21 04:50 Glucose (Fingerstick) 138 mg/dL (70-99) 171 mg/dL (70-99) 170 mg/dL (70-99) White Blood Count 13.6 x10^3/uL (4.0-11.0) Red Blood Count 3.07 x10^6/uL (4.30-5.70) Hemoglobin 6.9 g/dL (13.0-17.5) Hematocrit 22.3 % (39.0-53.0) Mean Corpuscular Volume 73 fL (79-100) Mean Corpuscular Hemoglobin 23 pg (25-35) Mean Corpuscular Hemoglobin Concent 31 g/dL (31-37) Red Cell Distribution Width 21.9 % (11.5-14.5) Platelet Count 283 x10^3/uL (140-400) Thyroid Stimulating Hormone (TSH) 2.321 uIU/mL (0.358-3.74) Test 09/17/21 07:47 09/17/21 12:17 09/17/21 16:58 09/17/21 20:39 Glucose (Fingerstick) 126 mg/dL (70-99) 152 mg/dL (70-99) 134 mg/dL (70-99) 149 mg/dL (70-99) Test 09/18/21 05:45 09/18/21 08:04 09/18/21 11:40 09/18/21 16:54 White Blood Count 15.2 x10^3/uL (4.0-11.0) Red Blood Count 3.51 x10^6/uL (4.30-5.70) Hemoglobin 8.2 g/dL (13.0-17.5) Hematocrit 25.6 % (39.0-53.0) Mean Corpuscular Volume 73 fL (79-100) Mean Corpuscular Hemoglobin 23 pg (25-35) Mean Corpuscular Hemoglobin Concent 32 g/dL (31-37) Red Cell Distribution Width 22.6 % (11.5-14.5) Platelet Count 287 x10^3/uL (140-400) Sodium Level 139 mmol/L (136-145) Potassium Level 4.4 mmol/L (3.5-5.1) Chloride Level 104 mmol/L (98-107) Carbon Dioxide Level 25 mmol/L (21-32) Anion Gap 10 (6-14) Blood Urea Nitrogen 34 mg/dL (8-26) Creatinine 2.5 mg/dL (0.7-1.3) Estimated GFR (Cockcroft-Gault) 30.5 BUN/Creatinine Ratio 14 (6-20) Glucose Level 129 mg/dL (70-99) Calcium Level 8.5 mg/dL (8.5-10.1) Total Bilirubin 0.5 mg/dL (0.2-1.0) Aspartate Amino Transf (AST/SGOT) 38 U/L (15-37) Alanine Aminotransferase (ALT/SGPT) 26 U/L (16-63) Alkaline Phosphatase 326 U/L (46-116) Total Protein 7.0 g/dL (6.4-8.2) Albumin 1.8 g/dL (3.4-5.0) Albumin/Globulin Ratio 0.3 (1.0-1.7) Glucose (Fingerstick) 123 mg/dL (70-99) 125 mg/dL (70-99) 154 mg/dL (70-99) Test 09/18/21 21:30 09/19/21 05:45 09/19/21 07:47 Glucose (Fingerstick) 161 mg/dL (70-99) 144 mg/dL (70-99) White Blood Count 12.8 x10^3/uL (4.0-11.0) Red Blood Count 3.33 x10^6/uL (4.30-5.70) Hemoglobin 7.6 g/dL (13.0-17.5) Hematocrit 24.6 % (39.0-53.0) Mean Corpuscular Volume 74 fL (79-100) Mean Corpuscular Hemoglobin 23 pg (25-35) Mean Corpuscular Hemoglobin Concent 31 g/dL (31-37) Red Cell Distribution Width 22.7 % (11.5-14.5) Platelet Count 271 x10^3/uL (140-400) Sodium Level 142 mmol/L (136-145) Potassium Level 4.0 mmol/L (3.5-5.1) Chloride Level 108 mmol/L (98-107) Carbon Dioxide Level 24 mmol/L (21-32) Anion Gap 10 (6-14) Blood Urea Nitrogen 35 mg/dL (8-26) Creatinine 2.8 mg/dL (0.7-1.3) Estimated GFR (Cockcroft-Gault) 26.7 Glucose Level 141 mg/dL (70-99) Calcium Level 8.3 mg/dL (8.5-10.1) Microbiology 09/16/21 Urine Culture - Final, Complete Proteus Mirabilis MEDICATIONS: Current Medications Medications (Trade) Dose Ordered Sig/Yasir Start Time Stop Time Status Last Admin Dose Admin Acetaminophen (Tylenol) 650 mg PRN Q4HRS PRN 09/15/21 16:45 09/16/21 16:44 DC 09/15/21 18:16 650 MG Albuterol/ Ipratropium (Duoneb) 3 ml QID 09/15/21 21:00 09/19/21 07:38 3 ML Ascorbic Acid (Vitamin C) 500 mg BID 09/17/21 10:00 09/19/21 07:48 500 MG Buspirone HCl (Buspar) 5 mg BID 09/15/21 21:00 09/19/21 07:47 5 MG Ceftriaxone Sodium (Rocephin) 1 gm Q24H 09/17/21 16:00 09/18/21 16:45 1 GM Fentanyl Citrate (Fentanyl 2ml Vial) 50 mcg PRN Q4HRS PRN 09/18/21 12:00 09/18/21 12:05 50 MCG Ferrous Sulfate (Feosol) 325 mg BID WMEALS 09/16/21 08:00 09/19/21 07:48 325 MG Finasteride (Proscar) 5 mg DAILY 09/16/21 11:00 09/19/21 07:11 5 MG Lactobacillus Rhamnosus (Culturelle) 1 cap BID 09/15/21 21:00 09/19/21 07:47 1 CAP Levothyroxine Sodium (Synthroid) 88 mcg DAILY06 09/16/21 06:00 09/19/21 06:03 88 MCG Morphine Sulfate (Morphine Sulfate) 4 mg PRN Q2HR PRN 09/15/21 16:45 09/16/21 16:44 DC Multivitamins (Thera M Plus) 1 tab DAILY 09/17/21 10:00 09/19/21 07:47 1 TAB Ondansetron HCl (Zofran Odt) 4 mg Q8HRS 09/15/21 22:00 09/19/21 06:04 4 MG Ondansetron HCl (Zofran) 4 mg PRN Q8HRS PRN 09/15/21 16:45 09/16/21 16:44 DC Sertraline HCl (Zoloft) 12.5 mg DAILY 09/16/21 09:00 09/19/21 07:48 12.5 MG Sodium Chloride 1,000 ml @ 100 mls/hr Q10H 09/16/21 09:30 09/19/21 07:49 100 MLS/HR Vitamin A/Vitamin D (Vitamin A & D Ointment) 1 germain BID 09/17/21 21:00 09/19/21 07:56 1 GERMAIN ASSESSMENT & PLAN -- Gross hematuria CBI had been started. Clear since 09/17. Patient had catheter exchanged to smaller size by nursing 09/17. I believe that the balloon had been inflated in the urethra at this time, I replaced the catheter with a 20fr [address] and irrigated to remove blood clots at that time. CBI restarted this morning due to vazquez red urine. clear red on my assessment with clear yellow urine in tubing. I irrigated catheter with 250ml of NS with no resistance and a few small clots removed. When finished clear yellow urine draining. I clamped CBI tubing. Nursing notified to empty bag for accurate color assessment. Urine yellow at this time. Restart CBI if becomes bloody. Hgb stable this AM. Continue with Proscar daily for prostatic bleeding. Reviewed CT imaging showing bilateral moderate hydronephrosis and bladder wall thickening, suggestive of UTI. No obstructing stone. Also found to have retroperitoneal and pelvic adenopathy concerning for malignancy. Would defer to the hospitalist for management of this. Will complete 14-day course of culture specific antibiotics, urine culture pending. Patient will require a outpatient cystoscopy after completing culture specific antibiotics for 2 weeks and having sterile urine prior to procedure. Appears that patient has seen Dr Abreu in the past. Would recommend followup with him, but if needed can follow up in our office. I discussed case with nursing and will call them tomorrow morning. If urine remains clear, patient is ok to discharge from urology standpoint. Nursing discussed that nephrology and oncology are now on board. Will follow peripherally at that time if he stays. Problem List: Problems Medical Problems: (1) Anemia Status: Acute (2) ARF (acute renal failure) Status: Acute ANGELIQUE BERNSTEIN APRN September 19, 2021 11:10
[2021-09-19 15:00] VITALS: BP 132/66
[2021-09-19] MEDS: cefTRIAXone IV Push 1 GM VIAL. IVP SCH (16:21)
[2021-09-19 19:00] VITALS: BP 132/64
--- NOTE | 2021-09-19 19:29 | NUR ---
Bloody urine with clots present in soto catheter; CBI restarted.
[2021-09-19 23:00] VITALS: BP 135/66
[2021-09-20] MEDS: IV NORMAL SALINE 1000ML BAG 1,000 ML IV SCH ×3 (02:28→23:42)
[2021-09-20 03:00] VITALS: BP 128/67
--- NOTE | 2021-09-20 04:42 | CONS ---
DATE OF CONSULTATION: 09/19/2021 NEPHROLOGY CONSULTATION REQUESTING PHYSICIAN: Becky Austin MD REASON FOR CONSULTATION: Acute on chronic kidney disease. HISTORY OF PRESENT ILLNESS: This is a 75-year-old gentleman, resident of [facility], brought to hospital with anemia with hemoglobin 6.1. The patient has history of bladder carcinoma with bilateral hydronephrosis, metastases to the bone, followed by Urology. Also, has history of left lower extremity DVT with IVC filter placement. He is found to have urinary tract infection with gross hematuria. Radiographs confirmed bilateral hydronephrosis. The patient's GFR is currently 26.7 mL per minute. In this setting, Nephrology evaluation was requested. PAST MEDICAL HISTORY: Bladder carcinoma, bilateral hydronephrosis as well as metastases to the bone, anemia, pneumonia, left lower extremity DVT, IVC filter placement, hypertension, hypothyroidism, type 2 diabetes mellitus, dementia, [employer] shunt for normal pressure hydrocephalus. ALLERGIES: None. MEDICATIONS: Reviewed per medication list. FAMILY HISTORY: Noncontributory. SOCIAL HISTORY: Resides with assistance at [facility], nonsmoker, nondrinker, mostly bedbound, wheelchair bound. REVIEW OF SYSTEMS: Unobtainable from the patient, is confused. PHYSICAL EXAMINATION: GENERAL APPEARANCE: The patient is confused. HEENT: Somewhat sallow complexion, otherwise clear. NECK: No increased JVD. LUNGS: Clear. CARDIAC: Without S3 or rub. ABDOMEN: Obese, bowel sounds present, nontender. EXTREMITIES: Bilateral 3+ lower extremity edema. NEUROPSYCHIATRIC: He is confused. LABORATORY DATA: White count 12.8, hemoglobin 7.6, hematocrit 24.6. Sodium 142, potassium 4, chloride 108, CO2 of 24, BUN 35, creatinine 2.8, GFR 26.7. IMPRESSION: 1. Renal failure -- chronic underlying kidney disease, stage 3/4, setting of chronic obstruction as well as diabetes mellitus and hypertension. Acute process, likely secondary to pyelonephritis. 2. Urinary tract infection with gross hematuria. RECOMMENDATIONS: 1. Fluid balance. 2. Antibiotics as dictated by culture results. We will follow trend with you. LISA/VINH/LOGAN DR: Don TID: [id number]
[2021-09-20] MEDS: ONDANSETRON ODT 4 MG TAB.RAPDIS. PO SCH ×3 (06:36→21:49)
[2021-09-20] MEDS: LEVOTHYROXINE 88 MCG TABLET PO SCH (06:36)
[2021-09-20 07:00] VITALS: BP 139/77
[2021-09-20 07:55] LABS: HEMATOCRIT 23.4 % (39.0-53.0); HEMOGLOBIN 7.2 g/dL (13.0-17.5); RED BLOOD COUNT 3.17 x10^6/uL (4.30-5.70); RED CELL DISTRIBUTION WIDTH 23.3 % (11.5-14.5)
[2021-09-20 08:15] LABS: ALBUMIN 1.7 g/dL (3.4-5.0); ALBUMIN/GLOBULIN RATIO 0.4 (1.0-1.7); CALCIUM 8.1 mg/dL (8.5-10.1); CREATININE 2.7 mg/dL (0.7-1.3); GFR 27.9; POTASSIUM 3.8 mmol/L (3.5-5.1); TOTAL BILIRUBIN 0.3 mg/dL (0.2-1.0); TOTAL PROTEIN 5.6 g/dL (6.4-8.2)
[2021-09-20] MEDS: FINASTERIDE 5 MG TABLET. PO SCH (08:23)
[2021-09-20] MEDS: MULTIVITAMIN with MINERAL TABLET. PO SCH (08:26)
[2021-09-20] MEDS: busPIRone 5 MG TABLET. PO SCH ×2 (08:26→20:09)
[2021-09-20] MEDS: LACTOBACILLUS RHAMNOSUS GG 1 CAPSULE. PO SCH ×2 (08:26→20:09)
[2021-09-20] MEDS: FERROUS SULFATE 325 MG TABLET. PO SCH ×2 (08:27→18:00)
[2021-09-20] MEDS: ASCORBIC ACID 500 MG TABLET PO SCH ×2 (08:27→20:09)
[2021-09-20] MEDS: SERTRALINE 25 MG TABLET. PO SCH (08:27)
[2021-09-20] MEDS: VITS A & D/LANOLIN TOPICAL OINTMENT 42GM TUBE. TP SCH ×2 (08:34→20:10)
--- NOTE | 2021-09-20 08:37 | PN ---
DATE: 09/20/2021 SUBJECTIVE: The patient is resting, slightly propped up in bed, in no apparent distress, awake, alert. On questioning him, he denied any complaints. The nursing staff stated that his urine continues to be blood tinged. PHYSICAL EXAMINATION: GENERAL: When I examined him, he was pale, but no jaundice, cyanosis, no lymphadenopathy, no thyromegaly, no jugular venous distention. No limb edema. VITAL SIGNS: His heart rate was 85, blood pressure was 128/67, temperature 97.7, respiratory rate was 14 and oxygen saturation was 95%. The rest of clinical exam is stable. His intake over the last 24 hours was 700, output was 3300. LABORATORY DATA: Today's labs are still pending at the time of this dictation. His blood sugar seems to be reasonably controlled. ASSESSMENT: 1. Recurrent episodes of gross hematuria and blood loss anemia. He also has so far received 2 units of packed RBCs. As of yesterday, his H and H was 7.6 and 24.6. 2. Urinary tract infection growing Proteus mirabilis, sensitive to IV ceftriaxone. 3. Acute on chronic kidney injury. His baseline is about 2. As of yesterday, his creatinine went up to 2.8. 4. Bladder cancer with bilateral hydronephrosis and also retroperitoneal adenopathy, which is increasing. He has also a bulky conglomerate left pelvic sidewall adenopathy measuring 5.2 x 2.3 and prominent bilateral inguinal lymph nodes. 5. The patient has deep vein thrombosis of his left lower extremity for which has an IVC filter as the patient could not be anticoagulated. 6. The patient has multiple other medical problems including: A. Hypertension. B. Type 2 diabetes mellitus. C. Benign prostatic hypertrophy with bladder outlet obstruction requiring indwelling Latif catheter. PLAN: To continue with IV antibiotic. Continue with IV fluid. Continue with continuous bladder irrigation. LIO/MICHA DR: Parminder TID: [id number]
[2021-09-20] MEDS: IPRATRPIUM/ALBUTEROL 0.5/2.5MG 3 ML NEBU. NEB SCH ×4 (10:56→21:15)
[2021-09-20 11:00] VITALS: BP 145/67
--- NOTE | 2021-09-20 11:31 | PDOC ---
PROGRESS NOTE DATE OF SERVICE: DATE: 09/20/21 TIME: 11:29 CHIEF COMPLAINT: HUSAM SUBJECTIVE: HPI: Patient resting in bed. No new complaints. Soto with pink urine, CBI slowly. Clot noted in soto bag. Problems: Problems Medical Problems: (1) Anemia Status: Acute (2) ARF (acute renal failure) Status: Acute OBJECTIVE: Vital Signs: Vital Signs Date Time Temp Pulse Resp B/P (MAP) Pulse Ox O2 Delivery O2 Flow Rate FiO2 09/20/21 11:00 98.2 74 18 145/67 (93) 99 Room Air 98.2 09/20/21 10:56 99 Room Air 09/20/21 07:00 98.2 76 18 139/77 (97) 98 Room Air 98.2 09/20/21 03:00 80 14 128/67 (87) 95 Room Air 09/19/21 23:00 97.7 85 14 135/66 (89) 94 Room Air 97.7 09/19/21 20:38 97 Room Air 09/19/21 19:30 Room Air 09/19/21 19:00 99.3 85 14 132/64 (86) 96 Room Air 99.3 09/19/21 16:15 97 Room Air 09/19/21 15:00 98.5 94 16 132/66 (88) 93 Room Air 98.5 I & O Intake and Output 09/20/21 07:00 Intake Total 1750 ml Output Total 3750 ml Balance -2000 ml Intake Oral 900 ml IV Total 850 ml Output Urine Total 3750 ml # Bowel Movements 1 PHYSICAL EXAM: Physical Exam: General: Pleasant, no acute distress, well groomed Eyes: conjunctiva anicteric, eyes full range of motion ENT: moist oral mucosa, normal dentition Neck: Trachea midline, no masses Respiratory: unlabored breathing, not using accessory muscles, no crackles or wheezes Abdomen: nontender, nondistended, no hepatosplenomegaly, no masses Skin: no rashes or skin lesions on visualized skin Psych: Confused : 20[address] soto with pink urine, clot noted in soto bag LABS: Laboratory Tests Test 09/17/21 12:17 09/17/21 16:58 09/17/21 20:39 09/18/21 05:45 Glucose (Fingerstick) 152 mg/dL (70-99) 134 mg/dL (70-99) 149 mg/dL (70-99) White Blood Count 15.2 x10^3/uL (4.0-11.0) Red Blood Count 3.51 x10^6/uL (4.30-5.70) Hemoglobin 8.2 g/dL (13.0-17.5) Hematocrit 25.6 % (39.0-53.0) Mean Corpuscular Volume 73 fL (79-100) Mean Corpuscular Hemoglobin 23 pg (25-35) Mean Corpuscular Hemoglobin Concent 32 g/dL (31-37) Red Cell Distribution Width 22.6 % (11.5-14.5) Platelet Count 287 x10^3/uL (140-400) Sodium Level 139 mmol/L (136-145) Potassium Level 4.4 mmol/L (3.5-5.1) Chloride Level 104 mmol/L (98-107) Carbon Dioxide Level 25 mmol/L (21-32) Anion Gap 10 (6-14) Blood Urea Nitrogen 34 mg/dL (8-26) Creatinine 2.5 mg/dL (0.7-1.3) Estimated GFR (Cockcroft-Gault) 30.5 BUN/Creatinine Ratio 14 (6-20) Glucose Level 129 mg/dL (70-99) Calcium Level 8.5 mg/dL (8.5-10.1) Total Bilirubin 0.5 mg/dL (0.2-1.0) Aspartate Amino Transf (AST/SGOT) 38 U/L (15-37) Alanine Aminotransferase (ALT/SGPT) 26 U/L (16-63) Alkaline Phosphatase 326 U/L (46-116) Total Protein 7.0 g/dL (6.4-8.2) Albumin 1.8 g/dL (3.4-5.0) Albumin/Globulin Ratio 0.3 (1.0-1.7) Test 09/18/21 08:04 09/18/21 11:40 09/18/21 16:54 09/18/21 21:30 Glucose (Fingerstick) 123 mg/dL (70-99) 125 mg/dL (70-99) 154 mg/dL (70-99) 161 mg/dL (70-99) Test 09/19/21 05:45 09/19/21 07:47 09/19/21 10:47 09/19/21 16:53 White Blood Count 12.8 x10^3/uL (4.0-11.0) Red Blood Count 3.33 x10^6/uL (4.30-5.70) Hemoglobin 7.6 g/dL (13.0-17.5) Hematocrit 24.6 % (39.0-53.0) Mean Corpuscular Volume 74 fL (79-100) Mean Corpuscular Hemoglobin 23 pg (25-35) Mean Corpuscular Hemoglobin Concent 31 g/dL (31-37) Red Cell Distribution Width 22.7 % (11.5-14.5) Platelet Count 271 x10^3/uL (140-400) Sodium Level 142 mmol/L (136-145) Potassium Level 4.0 mmol/L (3.5-5.1) Chloride Level 108 mmol/L (98-107) Carbon Dioxide Level 24 mmol/L (21-32) Anion Gap 10 (6-14) Blood Urea Nitrogen 35 mg/dL (8-26) Creatinine 2.8 mg/dL (0.7-1.3) Estimated GFR (Cockcroft-Gault) 26.7 Glucose Level 141 mg/dL (70-99) Calcium Level 8.3 mg/dL (8.5-10.1) Glucose (Fingerstick) 144 mg/dL (70-99) 195 mg/dL (70-99) 170 mg/dL (70-99) Test 09/19/21 20:37 09/20/21 07:26 09/20/21 07:37 Glucose (Fingerstick) 140 mg/dL (70-99) 153 mg/dL (70-99) White Blood Count 12.0 x10^3/uL (4.0-11.0) Red Blood Count 3.17 x10^6/uL (4.30-5.70) Hemoglobin 7.2 g/dL (13.0-17.5) Hematocrit 23.4 % (39.0-53.0) Mean Corpuscular Volume 74 fL (79-100) Mean Corpuscular Hemoglobin 23 pg (25-35) Mean Corpuscular Hemoglobin Concent 31 g/dL (31-37) Red Cell Distribution Width 23.3 % (11.5-14.5) Platelet Count 254 x10^3/uL (140-400) Sodium Level 142 mmol/L (136-145) Potassium Level 3.8 mmol/L (3.5-5.1) Chloride Level 108 mmol/L (98-107) Carbon Dioxide Level 24 mmol/L (21-32) Anion Gap 10 (6-14) Blood Urea Nitrogen 33 mg/dL (8-26) Creatinine 2.7 mg/dL (0.7-1.3) Estimated GFR (Cockcroft-Gault) 27.9 BUN/Creatinine Ratio 12 (6-20) Glucose Level 157 mg/dL (70-99) Calcium Level 8.1 mg/dL (8.5-10.1) Total Bilirubin 0.3 mg/dL (0.2-1.0) Aspartate Amino Transf (AST/SGOT) 46 U/L (15-37) Alanine Aminotransferase (ALT/SGPT) 39 U/L (16-63) Alkaline Phosphatase 311 U/L (46-116) Total Protein 5.6 g/dL (6.4-8.2) Albumin 1.7 g/dL (3.4-5.0) Albumin/Globulin Ratio 0.4 (1.0-1.7) Microbiology 09/16/21 Urine Culture - Final, Complete Proteus Mirabilis MEDICATIONS: Current Medications Medications (Trade) Dose Ordered Sig/Yasir Start Time Stop Time Status Last Admin Dose Admin Acetaminophen (Tylenol) 650 mg PRN Q4HRS PRN 09/15/21 16:45 09/16/21 16:44 DC 09/15/21 18:16 650 MG Albuterol/ Ipratropium (Duoneb) 3 ml QID 09/15/21 21:00 09/20/21 10:56 3 ML Ascorbic Acid (Vitamin C) 500 mg BID 09/17/21 10:00 09/20/21 08:27 500 MG Buspirone HCl (Buspar) 5 mg BID 09/15/21 21:00 09/20/21 08:26 5 MG Ceftriaxone Sodium (Rocephin) 1 gm Q24H 09/17/21 16:00 09/19/21 16:21 1 GM Fentanyl Citrate (Fentanyl 2ml Vial) 50 mcg PRN Q4HRS PRN 09/18/21 12:00 09/18/21 12:05 50 MCG Ferrous Sulfate (Feosol) 325 mg BID WMEALS 09/16/21 08:00 09/20/21 08:27 325 MG Finasteride (Proscar) 5 mg DAILY 09/16/21 11:00 09/20/21 08:23 5 MG Lactobacillus Rhamnosus (Culturelle) 1 cap BID 09/15/21 21:00 09/20/21 08:26 1 CAP Levothyroxine Sodium (Synthroid) 88 mcg DAILY06 09/16/21 06:00 09/20/21 06:36 88 MCG Morphine Sulfate (Morphine Sulfate) 4 mg PRN Q2HR PRN 09/15/21 16:45 09/16/21 16:44 DC Multivitamins (Thera M Plus) 1 tab DAILY 09/17/21 10:00 09/20/21 08:26 1 TAB Ondansetron HCl (Zofran Odt) 4 mg Q8HRS 09/15/21 22:00 09/20/21 06:36 4 MG Ondansetron HCl (Zofran) 4 mg PRN Q8HRS PRN 09/15/21 16:45 09/16/21 16:44 DC Sertraline HCl (Zoloft) 12.5 mg DAILY 09/16/21 09:00 09/20/21 08:27 12.5 MG Sodium Chloride 1,000 ml @ 100 mls/hr Q10H 09/16/21 09:30 09/20/21 02:28 100 MLS/HR Vitamin A/Vitamin D (Vitamin A & D Ointment) 1 germain BID 09/17/21 21:00 09/20/21 08:34 1 [facility]ERMAIN ASSESSMENT & PLAN -- Gross hematuria CBI had been started. Clear since 09/17. Patient had catheter exchanged to smaller size by nursing 09/17. I believe that the balloon had been inflated in the urethra at this time, I replaced the catheter with a 20fr [address] and irrigated to remove blood clots at that time. Per nursing, CBI restarted overnight due to clots. I irrigated catheter with 250ml of NS. I was able to remove two large clots. I then irrigated multiple times with no resistance and clear to peach colored urine. I clamped CBI tubing. Restart CBI if becomes bloody. Hgb stable this AM. Continue with Proscar daily for prostatic bleeding. Reviewed CT imaging showing bilateral moderate hydronephrosis and bladder wall thickening, suggestive of UTI. No obstructing stone. Also found to have retroperitoneal and pelvic adenopathy concerning for malignancy. Would defer to the hospitalist for management of this. Will complete 14-day course of culture specific antibiotics, urine culture pending. Patient will require a outpatient cystoscopy after completing culture specific antibiotics for 2 weeks and having sterile urine prior to procedure. Appears that patient has seen Dr Abreu in the past. Would recommend followup with him, but if needed can follow up in our office. Problem List: Problems Medical Problems: (1) Anemia Status: Acute (2) ARF (acute renal failure) Status: Acute ANGELIQUE BERNSTEIN [employer]LECTRO[employer]INTER September 20, 2021 11:31
--- NOTE | 2021-09-20 12:18 | PDOC ---
PROGRESS NOTES Date of Service DATE: 09/20/21 TIME: 12:16 Subjective Subjective SEEN IN FOLLOW UP OF ARF/CKD Objective Objective Vital Signs Date Time Temp Pulse Resp B/P (MAP) Pulse Ox O2 Delivery O2 Flow Rate FiO2 09/20/21 11:00 98.2 74 18 145/67 (93) 99 Room Air 98.2 09/20/21 03:00 Intake and Output 09/20/21 07:00 Intake Total 1750 ml Output Total 3750 ml Balance -2000 ml Intake Oral 900 ml IV Total 850 ml Output Urine Total 3750 ml # Bowel Movements 1 Physical Exam Abdomen: Normal bowel sounds, Soft, No tenderness, No hepatosplenomegaly, No masses Heart: Regular rate, Normal S1, Normal S2, No murmurs, Gallops Extremities: Other (BLE EDEMA) General: Other (CONFUSED) Lungs: Clear to auscultation, Normal air movement Diagnosis RENAL FAILURE: Acute (Acute tubular necrosis), Chronic (CKD stage IV) Assessment Assessment Problems Medical Problems: (1) Anemia Status: Acute (2) ARF (acute renal failure) Status: Acute Plan Plan of Care CONT ANTIBIOTICS. PER UROLOGY RELATES TO OBSTRUCTIVE UROPATHY. FLUID BALANCE Comment Review of Relevant I have reviewed the following items samuel (where applicable) has been applied. Labs Laboratory Tests Test 09/18/21 16:54 09/18/21 21:30 09/19/21 05:45 09/19/21 07:47 Glucose (Fingerstick) 154 mg/dL (70-99) 161 mg/dL (70-99) 144 mg/dL (70-99) White Blood Count 12.8 x10^3/uL (4.0-11.0) Red Blood Count 3.33 x10^6/uL (4.30-5.70) Hemoglobin 7.6 g/dL (13.0-17.5) Hematocrit 24.6 % (39.0-53.0) Mean Corpuscular Volume 74 fL (79-100) Mean Corpuscular Hemoglobin 23 pg (25-35) Mean Corpuscular Hemoglobin Concent 31 g/dL (31-37) Red Cell Distribution Width 22.7 % (11.5-14.5) Platelet Count 271 x10^3/uL (140-400) Sodium Level 142 mmol/L (136-145) Potassium Level 4.0 mmol/L (3.5-5.1) Chloride Level 108 mmol/L (98-107) Carbon Dioxide Level 24 mmol/L (21-32) Anion Gap 10 (6-14) Blood Urea Nitrogen 35 mg/dL (8-26) Creatinine 2.8 mg/dL (0.7-1.3) Estimated GFR (Cockcroft-Gault) 26.7 Glucose Level 141 mg/dL (70-99) Calcium Level 8.3 mg/dL (8.5-10.1) Test 09/19/21 10:47 09/19/21 16:53 09/19/21 20:37 09/20/21 07:26 Glucose (Fingerstick) 195 mg/dL (70-99) 170 mg/dL (70-99) 140 mg/dL (70-99) White Blood Count 12.0 x10^3/uL (4.0-11.0) Red Blood Count 3.17 x10^6/uL (4.30-5.70) Hemoglobin 7.2 g/dL (13.0-17.5) Hematocrit 23.4 % (39.0-53.0) Mean Corpuscular Volume 74 fL (79-100) Mean Corpuscular Hemoglobin 23 pg (25-35) Mean Corpuscular Hemoglobin Concent 31 g/dL (31-37) Red Cell Distribution Width 23.3 % (11.5-14.5) Platelet Count 254 x10^3/uL (140-400) Sodium Level 142 mmol/L (136-145) Potassium Level 3.8 mmol/L (3.5-5.1) Chloride Level 108 mmol/L (98-107) Carbon Dioxide Level 24 mmol/L (21-32) Anion Gap 10 (6-14) Blood Urea Nitrogen 33 mg/dL (8-26) Creatinine 2.7 mg/dL (0.7-1.3) Estimated GFR (Cockcroft-Gault) 27.9 BUN/Creatinine Ratio 12 (6-20) Glucose Level 157 mg/dL (70-99) Calcium Level 8.1 mg/dL (8.5-10.1) Total Bilirubin 0.3 mg/dL (0.2-1.0) Aspartate Amino Transf (AST/SGOT) 46 U/L (15-37) Alanine Aminotransferase (ALT/SGPT) 39 U/L (16-63) Alkaline Phosphatase 311 U/L (46-116) Total Protein 5.6 g/dL (6.4-8.2) Albumin 1.7 g/dL (3.4-5.0) Albumin/Globulin Ratio 0.4 (1.0-1.7) Test 09/20/21 07:37 09/20/21 12:01 Glucose (Fingerstick) 153 mg/dL (70-99) 131 mg/dL (70-99) Laboratory Tests Test 09/19/21 16:53 09/19/21 20:37 09/20/21 07:26 09/20/21 07:37 Glucose (Fingerstick) 170 mg/dL (70-99) 140 mg/dL (70-99) 153 mg/dL (70-99) White Blood Count 12.0 x10^3/uL (4.0-11.0) Red Blood Count 3.17 x10^6/uL (4.30-5.70) Hemoglobin 7.2 g/dL (13.0-17.5) Hematocrit 23.4 % (39.0-53.0) Mean Corpuscular Volume 74 fL (79-100) Mean Corpuscular Hemoglobin 23 pg (25-35) Mean Corpuscular Hemoglobin Concent 31 g/dL (31-37) Red Cell Distribution Width 23.3 % (11.5-14.5) Platelet Count 254 x10^3/uL (140-400) Sodium Level 142 mmol/L (136-145) Potassium Level 3.8 mmol/L (3.5-5.1) Chloride Level 108 mmol/L (98-107) Carbon Dioxide Level 24 mmol/L (21-32) Anion Gap 10 (6-14) Blood Urea Nitrogen 33 mg/dL (8-26) Creatinine 2.7 mg/dL (0.7-1.3) Estimated GFR (Cockcroft-Gault) 27.9 BUN/Creatinine Ratio 12 (6-20) Glucose Level 157 mg/dL (70-99) Calcium Level 8.1 mg/dL (8.5-10.1) Total Bilirubin 0.3 mg/dL (0.2-1.0) Aspartate Amino Transf (AST/SGOT) 46 U/L (15-37) Alanine Aminotransferase (ALT/SGPT) 39 U/L (16-63) Alkaline Phosphatase 311 U/L (46-116) Total Protein 5.6 g/dL (6.4-8.2) Albumin 1.7 g/dL (3.4-5.0) Albumin/Globulin Ratio 0.4 (1.0-1.7) Test 09/20/21 12:01 Glucose (Fingerstick) 131 mg/dL (70-99) Microbiology 09/16/21 Urine Culture - Final, Complete Proteus Mirabilis Medications Current Medications Ondansetron HCl (Zofran) 4 mg PRN Q8HRS PRN IVP NAUSEA/VOMITING; Start 09/15/21 at 16:45; Stop 09/16/21 at 16:44; Status DC Morphine Sulfate (Morphine Sulfate) 4 mg PRN Q2HR PRN IVP PAIN; Start 09/15/21 at 16:45; Stop 09/16/21 at 16:44; Status DC Acetaminophen (Tylenol) 650 mg PRN Q4HRS PRN PO FEVER > 100.3'F Last administered on 09/15/21at 18:16; Start 09/15/21 at 16:45; Stop 09/16/21 at 16:44; Status DC Buspirone HCl (Buspar) 5 mg BID PO Last administered on 09/20/21at 08:26; Start 09/15/21 at 21:00 Ferrous Sulfate (Feosol) 325 mg BID WMEALS PO Last administered on 09/20/21at 08:27; Start 09/16/21 at 08:00 Albuterol/ Ipratropium (Duoneb) 3 ml QID NEB Last administered on 09/20/21at 10:56; Start 09/15/21 at 21:00 Lactobacillus Rhamnosus (Culturelle) 1 cap BID PO Last administered on 09/20/21 08:26; Start 09/15/21 at 21:00 Levothyroxine Sodium (Synthroid) 88 mcg DAILY06 PO Last administered on 09/20/21 06:36; Start 09/16/21 at 06:00 Ondansetron HCl (Zofran Odt) 4 mg Q8HRS PO Last administered on 09/20/21at 06:36; Start 09/15/21 at 22:00 Sertraline HCl (Zoloft) 12.5 mg DAILY PO Last administered on 09/20/21at 08:27; Start 09/16/21 at 09:00 Sodium Chloride 1,000 ml @ 100 mls/hr Q10H IV Last administered on 09/20/21at 02:28; Start 09/16/21 at 09:30 Finasteride (Proscar) 5 mg DAILY PO Last administered on 09/20/21at 08:23; Start 09/16/21 at 11:00 Multivitamins (Thera M Plus) 1 tab DAILY PO Last administered on 09/20/21at 08:26; Start 09/17/21 at 10:00 Ascorbic Acid (Vitamin C) 500 mg BID PO Last administered on 09/20/21at 08:27; Start 09/17/21 at 10:00 Vitamin A/Vitamin D (Vitamin A & D Ointment) 1 germain BID TP Last administered on 09/20/21at 08:34; Start 09/17/21 at 21:00 Ceftriaxone Sodium (Rocephin) 1 gm Q24H IVP Last administered on 09/19/21at 16:21; Start 09/17/21 at 16:00 Fentanyl Citrate (Fentanyl 2ml Vial) 50 mcg PRN Q4HRS PRN IVP PAIN Last administered on 09/18/21at 12:05; Start 09/18/21 at 12:00 Active Scripts Active Reported Buspirone Hcl 5 Mg Tablet 1 Tab PO BID A and D Ointment (Vits A and D/White Pet/Lanolin) 42.5 Gm Oint...g. 42.5 Gm TP PRN Q1HR PRN Dialyvite With Zinc Tablet (Vit B Cplx #11/Fa/C/Biot/Zn Ox) 1 Each Tablet 1 Tab PO DAILY 30 Days Sertraline Hcl Oral Conc (Sertraline Hcl) 20 Mg/1 Ml Oral.conc 12.5 Mg PO DAILY Ondansetron Odt (Ondansetron) 4 Mg Tab.rapdis 1 Tab PO PRN Q6-8HRS Levothyroxine Sodium 88 Mcg Tablet 1 Tab PO DAILY06 Culturelle (Lactobacillus Rhamnosus Gg) 1 Each Cap.sprink 1 Cap PO BID 30 Days Duoneb 0.5-3(2.5) Mg/3 Ml (Albuterol/Ipratropium) 3 Ml Ampul.neb 3 Ml NEB QID Ferrous Sulfate 325 Mg Tablet 1 Tab PO BID WMEALS Vitamin C (Ascorbic Acid) 500 Mg Capsule.er 1 Cap PO DAILY 30 Days Acetaminophen 325 Mg Tablet 2 Tab PO PRN Q4-6HRS PRN 24 Days Multi Vitamin Daily (Multivitamin) 1 Each Tablet 1 Tab PO DAILY 30 Days Vitals/I & O Vital Sign - Last 24 Hours 09/19/21 09/19/21 09/19/21 09/19/21 15:00 16:15 19:00 19:30 Temp 98.5 99.3 98.5 99.3 Pulse 94 85 Resp 16 14 B/P (MAP) 132/66 (88) 132/64 (86) Pulse Ox 93 97 96 O2 Delivery Room Air Room Air Room Air Room Air 09/19/21 09/19/21 09/20/21 09/20/21 20:38 23:00 03:00 07:00 Temp 97.7 98.2 97.7 98.2 Pulse 85 80 76 Resp 14 14 18 B/P (MAP) 135/66 (89) 128/67 (87) 139/77 (97) Pulse Ox 97 94 95 98 O2 Delivery Room Air Room Air Room Air Room Air O2 Flow Rate 09/20/21 09/20/21 09/20/21 08:00 10:56 11:00 Temp 98.2 98.2 Pulse 74 Resp 18 B/P (MAP) 145/67 (93) Pulse Ox 99 99 O2 Delivery Room Air Room Air Room Air Intake and Output 09/19/21 09/19/21 09/20/21 15:00 23:00 07:00 Intake Total 950 ml 800 ml Output Total 2200 ml 1550 ml Balance -1250 ml -750 ml Justifications for Admission Other Justification MARIANELA MCCOLLUM MD September 20, 2021 12:18
[2021-09-20 15:00] VITALS: BP 139/68
[2021-09-20] MEDS: cefTRIAXone IV Push 1 GM VIAL. IVP SCH (17:10)
[2021-09-20 19:00] VITALS: BP 141/69
[2021-09-20] MEDS: fentaNYL PF VIAL 100 MCG/2 ML VIAL IVP PRN (20:09)
[2021-09-20 23:00] VITALS: BP 130/75
[2021-09-21 03:00] VITALS: BP 134/74
[2021-09-21] MEDS: ONDANSETRON ODT 4 MG TAB.RAPDIS. PO SCH ×3 (06:17→22:19)
[2021-09-21] MEDS: LEVOTHYROXINE 88 MCG TABLET PO SCH (06:17)
[2021-09-21 07:00] VITALS: BP 139/73
[2021-09-21 07:20] LABS: CALCIUM 8.5 mg/dL (8.5-10.1); CREATININE 2.6 mg/dL (0.7-1.3); GFR 29.1; POTASSIUM 3.8 mmol/L (3.5-5.1)
[2021-09-21] MEDS: IPRATRPIUM/ALBUTEROL 0.5/2.5MG 3 ML NEBU. NEB SCH ×4 (07:20→21:00)
[2021-09-21] MEDS: ASCORBIC ACID 500 MG TABLET PO SCH ×2 (08:25→22:18)
[2021-09-21] MEDS: LACTOBACILLUS RHAMNOSUS GG 1 CAPSULE. PO SCH ×2 (08:25→22:18)
[2021-09-21] MEDS: SERTRALINE 25 MG TABLET. PO SCH (08:26)
[2021-09-21] MEDS: busPIRone 5 MG TABLET. PO SCH ×2 (08:26→22:19)
[2021-09-21] MEDS: FERROUS SULFATE 325 MG TABLET. PO SCH ×2 (08:26→17:41)
[2021-09-21] MEDS: MULTIVITAMIN with MINERAL TABLET. PO SCH (08:26)
[2021-09-21] MEDS: VITS A & D/LANOLIN TOPICAL OINTMENT 42GM TUBE. TP SCH ×2 (09:00→22:18)
[2021-09-21] MEDS: IV NORMAL SALINE 1000ML BAG 1,000 ML IV SCH (09:30)
[2021-09-21] MEDS: FINASTERIDE 5 MG TABLET. PO SCH (09:33)
--- NOTE | 2021-09-21 09:38 | PDOC ---
DATE OF SERVICE DATE: 09/21/21 TIME: 09:23 SUBJECTIVE ROS Stable , denies any acute concerns OBJECTIVE Vital Signs Vital Signs Date Time Temp Pulse Resp B/P (MAP) Pulse Ox O2 Delivery O2 Flow Rate FiO2 09/21/21 07:20 98 Room Air 09/21/21 07:00 97.6 87 14 139/73 (95) 97.6 I & 0 Intake and Output 09/21/21 07:00 Intake Total 1300 ml Output Total 4500 ml Balance -3200 ml Intake Oral 1300 ml Output Urine Total 4500 ml PHYSICAL EXAM Physical Exam General NAD HEEN OM moist Neck Supple Lungs CTA CV RRR Abd soft, NT Neuro Grossly Normal Soto + DIAGNOSIS/ASSESSMENT Assessment & Plan AMBROCIO- Creat stable 2.8-->2.6 , supportive care, Avoid nephrotoxins CKD Stage 3 A- baseline Cr 1.5-1.9 per [facility] records UTI - UA with Proteus Anemia- Acute < 7 POA ; stable currently Gross hematuria POA -cleared with CBI then experienced urethral trauma from soto replacement which prompted recurrent hematuria while here. Currently Off CBI Moderate bilateral hydronephroureter with right greater than left urothelial thickening and diffuse bladder wall thickening. Correlate for urinary tract infection.Urology Following, Retroperitoneal and pelvic adenopathy, increasing. Correlate for primary malignancy.Defer to Primary COMMENT/RELEVANT DATA Meds Current Medications Medications (Trade) Dose Ordered Sig/Yasir Start Time Stop Time Status Last Admin Dose Admin Acetaminophen (Tylenol) 650 mg PRN Q4HRS PRN 09/15/21 16:45 09/16/21 16:44 DC 09/15/21 18:16 650 MG Albuterol/ Ipratropium (Duoneb) 3 ml QID 09/15/21 21:00 09/21/21 07:20 3 ML Ascorbic Acid (Vitamin C) 500 mg BID 09/17/21 10:00 09/21/21 08:25 500 MG Buspirone HCl (Buspar) 5 mg BID 09/15/21 21:00 09/21/21 08:26 5 MG Ceftriaxone Sodium (Rocephin) 1 gm Q24H 09/17/21 16:00 09/20/21 17:10 1 GM Fentanyl Citrate (Fentanyl 2ml Vial) 50 mcg PRN Q4HRS PRN 09/18/21 12:00 09/20/21 20:09 50 MCG Ferrous Sulfate (Feosol) 325 mg BID WMEALS 09/16/21 08:00 09/21/21 08:26 325 MG Finasteride (Proscar) 5 mg DAILY 09/16/21 11:00 09/20/21 08:23 5 MG Lactobacillus Rhamnosus (Culturelle) 1 cap BID 09/15/21 21:00 09/21/21 08:25 1 CAP Levothyroxine Sodium (Synthroid) 88 mcg DAILY06 09/16/21 06:00 09/21/21 06:17 88 MCG Morphine Sulfate (Morphine Sulfate) 4 mg PRN Q2HR PRN 09/15/21 16:45 09/16/21 16:44 DC Multivitamins (Thera M Plus) 1 tab DAILY 09/17/21 10:00 09/21/21 08:26 1 TAB Ondansetron HCl (Zofran Odt) 4 mg Q8HRS 09/15/21 22:00 09/21/21 06:17 4 MG Ondansetron HCl (Zofran) 4 mg PRN Q8HRS PRN 09/15/21 16:45 09/16/21 16:44 DC Sertraline HCl (Zoloft) 12.5 mg DAILY 09/16/21 09:00 09/21/21 08:26 12.5 MG Sodium Chloride 1,000 ml @ 100 mls/hr Q10H 09/16/21 09:30 09/20/21 23:42 100 MLS/HR Vitamin A/Vitamin D (Vitamin A & D Ointment) 1 germain BID 09/17/21 21:00 09/20/21 20:10 1 [facility]ER[facility] Lab Laboratory Tests Test 09/20/21 12:01 09/20/21 17:02 09/20/21 20:22 09/21/21 06:10 Glucose (Fingerstick) 131 mg/dL (70-99) 160 mg/dL (70-99) 170 mg/dL (70-99) Hemoglobin 7.6 g/dL (13.0-17.5) Sodium Level 141 mmol/L (136-145) Potassium Level 3.8 mmol/L (3.5-5.1) Chloride Level 108 mmol/L (98-107) Carbon Dioxide Level 21 mmol/L (21-32) Anion Gap 12 (6-14) Blood Urea Nitrogen 32 mg/dL (8-26) Creatinine 2.6 mg/dL (0.7-1.3) Estimated GFR (Cockcroft-Gault) 29.1 Glucose Level 128 mg/dL (70-99) Calcium Level 8.5 mg/dL (8.5-10.1) Results All relevant outside records, renal labs, imaging studies, telemetry/EKG's were reviewed. Justicifation of Admission Dx: Justifications for Admission: Justification of Admission Dx: N/A MELA MENDOZA MD September 21, 2021 09:38
--- NOTE | 2021-09-21 10:42 | PN ---
DATE: 09/21/2021 SUBJECTIVE: The patient is sitting slightly propped up in bed, in no apparent distress, awake, alert. On questioning, denied any complaint. He unfortunately continued to have blood-tinged urine and at least today his hemoglobin is 7.6. His chemistry showed that his creatinine is higher than his baseline, although trending slightly down. His CT scan of the abdomen and pelvis showed that he has moderate bilateral hydronephroureter with right greater than left urothelial thickening and diffuse bladder wall thickening. He has also retroperitoneal and pelvic adenopathy, increasing and left greater than right basilar consolidation versus atelectasis. PHYSICAL EXAMINATION: GENERAL: When I examined him, he looked pale, not jaundiced or cyanosed. No thyromegaly. No jugular venous distention. Bilateral lower limb lymphedema. VITAL SIGNS: His heart rate was 87, blood pressure is 139/73, temperature 97.6, respiratory rate was 14 and oxygen saturation was 98% on room air. HEAD, EYES, EARS, NOSE AND THROAT: Normocephalic, atraumatic. NECK: Supple. HEART: Normal first and second heart sounds. No gallop, rub or murmur. CHEST: Clear to auscultation. No crepitation or rhonchi. ABDOMEN: Distended, soft, nontender. NEUROLOGIC: He has functional paraplegia. He is mostly bedbound. His intake over the last 24 hours was 1750, output was 3750. LABORATORY DATA: This morning showed his hemoglobin was 7.6. His serum sodium was 141, potassium 3.8, chloride 108, bicarbonate 21, anion gap of 12, BUN 32, creatinine 2.6. Estimated GFR was 29 mL per minute. His glucose 128 and calcium was 8.5. ASSESSMENT: 1. Recurrent episode of gross hematuria and blood loss anemia. He has so far received 2 units of packed RBCs and as of this morning, his hemoglobin is 7.6. 2. Urinary tract infection, growing Proteus mirabilis, sensitive to IV ceftriaxone. 3. Acute on chronic kidney injury. His baseline is about 2. As of this morning, his creatinine is down to 2.6. 4. Bladder cancer with bilateral hydronephrosis and also retroperitoneal adenopathy, which is increasing. He has also a bulky conglomerate left pelvic sidewall adenopathy measuring 5.2 x 2.3 and prominent bilateral inguinal lymph nodes. 5. The patient has deep vein thrombosis of his left lower extremity for which he has an IVC filter as the patient cannot be anticoagulated. 6. The patient has multiple other medical problems including: A. Hypertension. B. Type 2 diabetes mellitus. C. Benign prostatic hypertrophy with bladder outlet obstruction, requiring indwelling Latif catheter. PLAN: Continue IV antibiotic. Continue with IV fluid. Continue with continuous bladder irrigation. I spoke with the Urology nurse practitioner and she will evaluate him and decide with the urologist on further management. STEFFANIE DR: Parminder TID: [id number]
[2021-09-21 11:06] VITALS: BP 138/70
--- NOTE | 2021-09-21 13:06 | PN ---
PROGRESS NOTES Date of Service DATE: 09/21/21 TIME: 13:03 Objective Objective Vital Signs Date Time Temp Pulse Resp B/P (MAP) Pulse Ox O2 Delivery O2 Flow Rate FiO2 09/21/21 11:46 Room Air 09/21/21 11:06 97.6 95 18 138/70 (92) 92 97.6 09/20/21 03:00 Intake and Output 09/21/21 06:59 Intake Total 1300 ml Output Total 4500 ml Balance -3200 ml Intake Oral 1300 ml Output Urine Total 4500 ml Physical Exam Physical Exam NAD nonlabored respirations abd NT soto draining peach urine off CBI Diagnosis PROBLEM LIST Problems Medical Problems: (1) Anemia Status: Acute (2) ARF (acute renal failure) Status: Acute Assessment Assessment Problems Medical Problems: (1) Anemia Status: Acute (2) ARF (acute renal failure) Status: Acute Plan Plan of Care -- Gross hematuria Had cleared then experienced urethral trauma from soto replacement which prompted recurrent hematuria while here. Urine is peach off CBI currently. Hgb remains stable. Continue to monitor. --CKD Cr remains stable this admission, continue to monitor. Does have bilateral hydronephrosis. Procedure as below to evaluate. --Urinary Retention Failed on VT while inpatient. Recommend leaving soto in place for 2wks prior to next VT. Continue with Proscar daily for prostatic bleeding. Tamsulosin. Reviewed CT imaging showing bilateral moderate hydronephrosis and bladder wall thickening, suggestive of UTI. No obstructing stone. Also found to have retroperitoneal and pelvic adenopathy concerning for malignancy. May benefit from oncology consult. There is mention of metastatic bladder cancer in notes this stay but pt declines any history of this and I do not see any records to support this diagnosis at this time. Pt need cystoscopy to complete evaluation. This is not urgent. He had outpatient appointment for this in June but no-showed to this. Procedure is electively scheduled inpatient later this week, after 1wk of abx. 09/[address] Jauregui. NPO night before. Comment Review of Relevant I have reviewed the following items samuel (where applicable) has been applied. Labs Laboratory Tests Test 09/19/21 16:53 09/19/21 20:37 09/20/21 07:26 09/20/21 07:37 Glucose (Fingerstick) 170 mg/dL (70-99) 140 mg/dL (70-99) 153 mg/dL (70-99) White Blood Count 12.0 x10^3/uL (4.0-11.0) Red Blood Count 3.17 x10^6/uL (4.30-5.70) Hemoglobin 7.2 g/dL (13.0-17.5) Hematocrit 23.4 % (39.0-53.0) Mean Corpuscular Volume 74 fL (79-100) Mean Corpuscular Hemoglobin 23 pg (25-35) Mean Corpuscular Hemoglobin Concent 31 g/dL (31-37) Red Cell Distribution Width 23.3 % (11.5-14.5) Platelet Count 254 x10^3/uL (140-400) Sodium Level 142 mmol/L (136-145) Potassium Level 3.8 mmol/L (3.5-5.1) Chloride Level 108 mmol/L (98-107) Carbon Dioxide Level 24 mmol/L (21-32) Anion Gap 10 (6-14) Blood Urea Nitrogen 33 mg/dL (8-26) Creatinine 2.7 mg/dL (0.7-1.3) Estimated GFR (Cockcroft-Gault) 27.9 BUN/Creatinine Ratio 12 (6-20) Glucose Level 157 mg/dL (70-99) Calcium Level 8.1 mg/dL (8.5-10.1) Total Bilirubin 0.3 mg/dL (0.2-1.0) Aspartate Amino Transf (AST/SGOT) 46 U/L (15-37) Alanine Aminotransferase (ALT/SGPT) 39 U/L (16-63) Alkaline Phosphatase 311 U/L (46-116) Total Protein 5.6 g/dL (6.4-8.2) Albumin 1.7 g/dL (3.4-5.0) Albumin/Globulin Ratio 0.4 (1.0-1.7) Test 09/20/21 12:01 09/20/21 17:02 09/20/21 20:22 09/21/21 06:10 Glucose (Fingerstick) 131 mg/dL (70-99) 160 mg/dL (70-99) 170 mg/dL (70-99) Hemoglobin 7.6 g/dL (13.0-17.5) Sodium Level 141 mmol/L (136-145) Potassium Level 3.8 mmol/L (3.5-5.1) Chloride Level 108 mmol/L (98-107) Carbon Dioxide Level 21 mmol/L (21-32) Anion Gap 12 (6-14) Blood Urea Nitrogen 32 mg/dL (8-26) Creatinine 2.6 mg/dL (0.7-1.3) Estimated GFR (Cockcroft-Gault) 29.1 Glucose Level 128 mg/dL (70-99) Calcium Level 8.5 mg/dL (8.5-10.1) Laboratory Tests Test 09/20/21 17:02 09/20/21 20:22 09/21/21 06:10 Glucose (Fingerstick) 160 mg/dL (70-99) 170 mg/dL (70-99) Hemoglobin 7.6 g/dL (13.0-17.5) Sodium Level 141 mmol/L (136-145) Potassium Level 3.8 mmol/L (3.5-5.1) Chloride Level 108 mmol/L (98-107) Carbon Dioxide Level 21 mmol/L (21-32) Anion Gap 12 (6-14) Blood Urea Nitrogen 32 mg/dL (8-26) Creatinine 2.6 mg/dL (0.7-1.3) Estimated GFR (Cockcroft-Gault) 29.1 Glucose Level 128 mg/dL (70-99) Calcium Level 8.5 mg/dL (8.5-10.1) Microbiology 09/16/21 Urine Culture - Final, Complete Proteus Mirabilis Medications Current Medications Ondansetron HCl (Zofran) 4 mg PRN Q8HRS PRN IVP NAUSEA/VOMITING; Start 09/15/21 at 16:45; Stop 09/16/21 at 16:44; Status DC Morphine Sulfate (Morphine Sulfate) 4 mg PRN Q2HR PRN IVP PAIN; Start 09/15/21 at 16:45; Stop 09/16/21 at 16:44; Status DC Acetaminophen (Tylenol) 650 mg PRN Q4HRS PRN PO FEVER > 100.3'F Last administered on 09/15/21at 18:16; Start 09/15/21 at 16:45; Stop 09/16/21 at 16:44; Status DC Buspirone HCl (Buspar) 5 mg BID PO Last administered on 09/21/21 08:26; Start 09/15/21 at 21:00 Ferrous Sulfate (Feosol) 325 mg BID WMEALS PO Last administered on 09/21/21 08:26; Start 09/16/21 at 08:00 Albuterol/ Ipratropium (Duoneb) 3 ml QID NEB Last administered on 09/21/21at 11:45; Start 09/15/21 at 21:00 Lactobacillus Rhamnosus (Culturelle) 1 cap BID PO Last administered on 09/21/21 08:25; Start 09/15/21 at 21:00 Levothyroxine Sodium (Synthroid) 88 mcg DAILY06 PO Last administered on 09/21/21 06:17; Start 09/16/21 at 06:00 Ondansetron HCl (Zofran Odt) 4 mg Q8HRS PO Last administered on 09/21/21 06:17; Start 09/15/21 at 22:00 Sertraline HCl (Zoloft) 12.5 mg DAILY PO Last administered on 09/21/21 08:26; Start 09/16/21 at 09:00 Sodium Chloride 1,000 ml @ 100 mls/hr Q10H IV Last administered on 09/20/21at 23:42; Start 09/16/21 at 09:30 Finasteride (Proscar) 5 mg DAILY PO Last administered on 09/21/21at 09:33; Start 09/16/21 at 11:00 Multivitamins (Thera M Plus) 1 tab DAILY PO Last administered on 09/21/21 08:26; Start 09/17/21 at 10:00 Ascorbic Acid (Vitamin C) 500 mg BID PO Last administered on 09/21/21 08:25; Start 09/17/21 at 10:00 Vitamin A/Vitamin D (Vitamin A & D Ointment) 1 germain BID TP Last administered on 09/21/21 09:00; Start 09/17/21 at 21:00 Ceftriaxone Sodium (Rocephin) 1 gm Q24H IVP Last administered on 09/20/21at 17 :10; Start 09/17/21 at 16:00; Stop 09/21/21 at 12:28; Status DC Fentanyl Citrate (Fentanyl 2ml Vial) 50 mcg PRN Q4HRS PRN IVP PAIN Last administered on 09/20/21at 20:09; Start 09/18/21 at 12:00 Cefdinir (Omnicef) 300 mg BID PO ; Start 09/21/21 at 21:00 Active Scripts Active Reported Buspirone Hcl 5 Mg Tablet 1 Tab PO BID A and D Ointment (Vits A and D/White Pet/Lanolin) 42.5 Gm Oint...g. 42.5 Gm TP PRN Q1HR PRN Dialyvite With Zinc Tablet (Vit B Cplx #11/Fa/C/Biot/Zn Ox) 1 Each Tablet 1 Tab PO DAILY 30 Days Sertraline Hcl Oral Conc (Sertraline Hcl) 20 Mg/1 Ml Oral.conc 12.5 Mg PO DAILY Ondansetron Odt (Ondansetron) 4 Mg Tab.rapdis 1 Tab PO PRN Q6-8HRS Levothyroxine Sodium 88 Mcg Tablet 1 Tab PO DAILY06 Culturelle (Lactobacillus Rhamnosus Gg) 1 Each Cap.sprink 1 Cap PO BID 30 Days Duoneb 0.5-3(2.5) Mg/3 Ml (Albuterol/Ipratropium) 3 Ml Ampul.neb 3 Ml NEB QID Ferrous Sulfate 325 Mg Tablet 1 Tab PO BID WMEALS Vitamin C (Ascorbic Acid) 500 Mg Capsule.er 1 Cap PO DAILY 30 Days Acetaminophen 325 Mg Tablet 2 Tab PO PRN Q4-6HRS PRN 24 Days Multi Vitamin Daily (Multivitamin) 1 Each Tablet 1 Tab PO DAILY 30 Days Vitals/I & O Vital Sign - Last 24 Hours 09/20/21 09/20/21 09/20/21 09/20/21 15:00 15:08 19:00 20:00 Temp 98.7 98.1 98.7 98.1 Pulse 68 87 Resp 16 16 B/P (MAP) 139/68 (91) 141/69 (93) Pulse Ox 97 97 94 O2 Delivery Room Air Room Air Room Air Room Air 09/20/21 09/20/21 09/20/21 09/20/21 20:09 20:39 21:16 23:00 Temp 98.1 98.1 Pulse 87 Resp 20 20 14 B/P (MAP) 130/75 (93) Pulse Ox 95 96 O2 Delivery Room Air Room Air Room Air Room Air 09/21/21 09/21/21 09/21/21 09/21/21 03:00 07:00 07:20 08:00 Temp 97.6 97.6 Pulse 82 87 Resp 14 14 B/P (MAP) 134/74 (94) 139/73 (95) Pulse Ox 95 94 98 O2 Delivery Room Air Room Air Room Air Room Air 09/21/21 09/21/21 11:06 11:46 Temp 97.6 97.6 Pulse 95 Resp 18 B/P (MAP) 138/70 (92) Pulse Ox 92 O2 Delivery Room Air Room Air Intake and Output 09/20/21 09/20/21 09/21/21 14:59 22:59 06:59 Intake Total 300 ml 1000 ml Output Total 3250 ml 1250 ml Balance -2950 ml -250 ml BRITTANI STRICKLAND September 21, 2021 13:06
[2021-09-21 15:00] VITALS: BP 148/79
[2021-09-21 19:00] VITALS: BP 147/60
[2021-09-21] MEDS: CEFDINIR 300 MG CAPSULE PO SCH (22:19)
[2021-09-21 23:00] VITALS: BP 96/63
[2021-09-22 03:00] VITALS: BP 132/68
[2021-09-22] MEDS: IV NORMAL SALINE 1000ML BAG 1,000 ML IV SCH ×3 (03:20→15:30)
[2021-09-22] MEDS: LEVOTHYROXINE 88 MCG TABLET PO SCH (06:15)
[2021-09-22] MEDS: ONDANSETRON ODT 4 MG TAB.RAPDIS. PO SCH ×3 (06:16→22:12)
[2021-09-22 07:00] VITALS: BP 151/72
[2021-09-22 08:00] LABS: HEMATOCRIT 24.4 % (39.0-53.0); HEMOGLOBIN 7.5 g/dL (13.0-17.5); RED BLOOD COUNT 3.29 x10^6/uL (4.30-5.70); WHITE BLOOD COUNT 11.8 x10^3/uL (4.0-11.0)
[2021-09-22] MEDS: FERROUS SULFATE 325 MG TABLET. PO SCH ×2 (08:00→18:00)
[2021-09-22 08:11] LABS: CALCIUM 8.1 mg/dL (8.5-10.1); CREATININE 2.7 mg/dL (0.7-1.3); GFR 27.9; POTASSIUM 3.3 mmol/L (3.5-5.1)
[2021-09-22] MEDS: IPRATRPIUM/ALBUTEROL 0.5/2.5MG 3 ML NEBU. NEB SCH ×3 (08:28→20:36)
[2021-09-22] MEDS: MULTIVITAMIN with MINERAL TABLET. PO SCH (09:00)
[2021-09-22] MEDS ORDERED: POTASSIUM CHLORIDE 20 MEQ TABLET.ER. PO ONE (09:00)
[2021-09-22] MEDS: ASCORBIC ACID 500 MG TABLET PO SCH ×2 (09:00→22:12)
[2021-09-22] MEDS: SERTRALINE 25 MG TABLET. PO SCH (09:00)
[2021-09-22] MEDS: busPIRone 5 MG TABLET. PO SCH ×2 (09:00→22:12)
[2021-09-22] MEDS: LACTOBACILLUS RHAMNOSUS GG 1 CAPSULE. PO SCH ×2 (09:00→22:12)
[2021-09-22] MEDS: VITS A & D/LANOLIN TOPICAL OINTMENT 42GM TUBE. TP SCH ×2 (09:00→21:00)
[2021-09-22] MEDS: CEFDINIR 300 MG CAPSULE PO SCH ×2 (09:00→22:12)
--- NOTE | 2021-09-22 09:13 | PN ---
DATE: 09/22/2021 SUBJECTIVE: The patient is resting, slightly up in bed, in no apparent respiratory distress. He is awake, alert. On questioning him, denied any complaint. The nursing staff did not voice any concern. He apparently was seen by the urologist yesterday. He is scheduled for cystoscopy on 09/24 at 11:00 a.m. PHYSICAL EXAMINATION: GENERAL: When I examined him this morning, he was pale, no jaundice, cyanosis or thyromegaly. No jugular venous distention. No limb edema. VITAL SIGNS: His heart rate was 80, blood pressure was 151/72, temperature was 98.7, respiratory rate was 18 and oxygen saturation was 96%. HEAD, EYES, EARS, NOSE AND THROAT: Normocephalic, atraumatic. NECK: Supple. HEART: Showed normal first and second heart sounds. No gallop, rub or murmur. CHEST: Clear to auscultation, no crepitation or rhonchi. ABDOMEN: Distended, soft, nontender. NEUROLOGIC: He is awake, alert, responding appropriately. Cranial nerves intact. He moves upper extremities without difficulty. He is mostly bedbound. He has an indwelling Latif catheter. His intake was 1300, output was 4500. LABORATORY DATA: This morning showed white cell count of 11.8, hemoglobin 7.5, hematocrit 24, MCV 74 and platelet count 256,000. Serum sodium was 145, potassium 3.3, chloride 111, bicarbonate 22, anion gap of 12, BUN 30, creatinine 2.7. Estimated GFR was 27 mL per minute. His glucose was 122 and calcium was 8.1. ASSESSMENT: 1. Recurrent episode of gross hematuria and blood loss anemia. He has so far received 2 units of packed RBCs, and as of this morning, his hemoglobin is 7.5. 2. Urinary tract infection with growth of Proteus mirabilis, sensitive to IV ceftriaxone. 3. Acute on chronic kidney injury. His baseline creatinine is about 2. As of this morning, his creatinine is up to 2.7. 4. Bladder cancer with bilateral hydronephrosis and also retroperitoneal adenopathy, which is increasing. He has also a bulky conglomerate left pelvic sidewall adenopathy measuring 5.2 x 2.3 with prominent bilateral inguinal lymph nodes. 5. The patient has deep vein thrombosis of his left lower extremity for which he had an IVC filter placed successfully, cannot be anticoagulated. 6. He has multiple other medical problems including: A. Hypertension. B. Type 2 diabetes mellitus. C. Benign prostatic hypertrophy with bladder outlet obstruction requiring indwelling Latif catheter. PLAN: To continue with IV antibiotic. Continue with IV fluid. Continue to monitor his bladder irrigation. I spoke with Dr. Zazueta about percutaneous nephrostomy, but his recommendation was for the urologist to place an internal ureteral stents and perhaps treat his bladder cancer with cauterization and/or BCG. LIO/BARBARA DR: Parminder TID: [id number]
--- NOTE | 2021-09-22 09:26 | PDOC ---
DATE OF SERVICE DATE: 09/22/21 TIME: 09:26 SUBJECTIVE ROS Stable , denies any acute concerns OBJECTIVE Vital Signs Vital Signs Date Time Temp Pulse Resp B/P (MAP) Pulse Ox O2 Delivery O2 Flow Rate FiO2 09/22/21 08:30 95 Room Air 09/22/21 07:00 98.7 80 18 151/72 (98) 98.7 I & 0 Intake and Output 09/22/21 07:00 Intake Total 600 ml Output Total 3550 ml Balance -2950 ml Intake Oral 600 ml Output Urine Total 3550 ml # Bowel Movements 1 PHYSICAL EXAM Physical Exam General NAD HEEN OM moist Neck Supple Lungs CTA CV RRR Abd soft, NT Neuro Grossly Normal Soto + DIAGNOSIS/ASSESSMENT Assessment & Plan AMBROCIO- Creat stable 2.8-->2.6-->2.7 , ATN vs new baseline , maintain fluid balance , supportive care, Avoid nephrotoxins CKD Stage 3 A- baseline Cr 1.5-1.9 per [facility] records UTI - UA with Proteus Anemia- Acute < 7 POA ; s/p PRBC x2 stable currently Gross hematuria POA -cleared with CBI then experienced urethral trauma from soto replacement which prompted recurrent hematuria while here. Currently Off CBI Moderate bilateral hydronephroureter with right greater than left urothelial thickening and diffuse bladder wall thickening. Correlate for urinary tract infection.Urology Following, Bladder cancer ( Per Dr Austin's note ) with bilateral hydronephrosis and also retroperitoneal adenopathy, which is increasing. He has also a bulky conglomerate left pelvic sidewall adenopathy measuring 5.2 x 2.3 with prominent bilateral inguinal lymph nodes. Deep vein thrombosis of his left lower extremity for which he had an IVC filter placed successfully, cannot be anticoagulated. Benign prostatic hypertrophy with bladder outlet obstruction requiring indwelling Soto catheter. COMMENT/RELEVANT DATA Meds Current Medications Medications (Trade) Dose Ordered Sig/Yasir Start Time Stop Time Status Last Admin Dose Admin Acetaminophen (Tylenol) 650 mg PRN Q4HRS PRN 09/15/21 16:45 09/16/21 16:44 DC 09/15/21 18:16 650 MG Albuterol/ Ipratropium (Duoneb) 3 ml QID 09/15/21 21:00 09/22/21 08:28 3 ML Ascorbic Acid (Vitamin C) 500 mg BID 09/17/21 10:00 09/21/21 22:18 500 MG Buspirone HCl (Buspar) 5 mg BID 09/15/21 21:00 09/21/21 22:19 5 MG Cefdinir (Omnicef) 300 mg BID 09/21/21 21:00 09/21/21 22:19 300 MG Ceftriaxone Sodium (Rocephin) 1 gm Q24H 09/17/21 16:00 09/21/21 12:28 DC 09/20/21 17:10 1 GM Fentanyl Citrate (Fentanyl 2ml Vial) 50 mcg PRN Q4HRS PRN 09/18/21 12:00 09/20/21 20:09 50 MCG Ferrous Sulfate (Feosol) 325 mg BID WMEALS 09/16/21 08:00 09/21/21 08:26 325 MG Finasteride (Proscar) 5 mg DAILY 09/16/21 11:00 09/21/21 09:33 5 MG Lactobacillus Rhamnosus (Culturelle) 1 cap BID 09/15/21 21:00 09/21/21 22:18 1 CAP Levothyroxine Sodium (Synthroid) 88 mcg DAILY06 09/16/21 06:00 09/22/21 06:15 88 MCG Morphine Sulfate (Morphine Sulfate) 4 mg PRN Q2HR PRN 09/15/21 16:45 09/16/21 16:44 DC Multivitamins (Thera M Plus) 1 tab DAILY 09/17/21 10:00 09/21/21 08:26 1 TAB Ondansetron HCl (Zofran Odt) 4 mg Q8HRS 09/15/21 22:00 09/22/21 06:16 4 MG Ondansetron HCl (Zofran) 4 mg PRN Q8HRS PRN 09/15/21 16:45 09/16/21 16:44 DC Potassium Chloride (Klor-Con) 40 meq 1X ONCE 09/22/21 09:00 09/22/21 09:02 DC Sertraline HCl (Zoloft) 12.5 mg DAILY 09/16/21 09:00 09/21/21 08:26 12.5 MG Sodium Chloride 1,000 ml @ 100 mls/hr Q10H 09/16/21 09:30 09/22/21 03:20 100 MLS/HR Vitamin A/Vitamin D (Vitamin A & D Ointment) 1 germain BID 09/17/21 21:00 09/21/21 22:18 1 [facility] Laboratory Tests Test 09/22/21 06:15 White Blood Count 11.8 x10^3/uL (4.0-11.0) Red Blood Count 3.29 x10^6/uL (4.30-5.70) Hemoglobin 7.5 g/dL (13.0-17.5) Hematocrit 24.4 % (39.0-53.0) Mean Corpuscular Volume 74 fL (79-100) Mean Corpuscular Hemoglobin 23 pg (25-35) Mean Corpuscular Hemoglobin Concent 31 g/dL (31-37) Red Cell Distribution Width 23.0 % (11.5-14.5) Platelet Count 256 x10^3/uL (140-400) Sodium Level 145 mmol/L (136-145) Potassium Level 3.3 mmol/L (3.5-5.1) Chloride Level 111 mmol/L (98-107) Carbon Dioxide Level 22 mmol/L (21-32) Anion Gap 12 (6-14) Blood Urea Nitrogen 30 mg/dL (8-26) Creatinine 2.7 mg/dL (0.7-1.3) Estimated GFR (Cockcroft-Gault) 27.9 Glucose Level 123 mg/dL (70-99) Calcium Level 8.1 mg/dL (8.5-10.1) Results All relevant outside records, renal labs, imaging studies, telemetry/EKG's were reviewed. Justicifation of Admission Dx: Justifications for Admission: Justification of Admission Dx: N/A MELA MENDOZA MD September 22, 2021 09:26
[2021-09-22 11:00] VITALS: BP 122/56
[2021-09-22] MEDS: FINASTERIDE 5 MG TABLET. PO SCH (11:19)
--- NOTE | 2021-09-22 12:52 | PN ---
PROGRESS NOTES Date of Service DATE: 09/22/21 TIME: 12:50 Subjective Subjective Pt denies complaints Objective Objective Vital Signs Date Time Temp Pulse Resp B/P (MAP) Pulse Ox O2 Delivery O2 Flow Rate FiO2 09/22/21 11:59 Room Air 09/22/21 11:00 97.8 89 16 122/56 (78) 94 97.8 09/20/21 03:00 Intake and Output 09/22/21 07:00 Intake Total 600 ml Output Total 3550 ml Balance -2950 ml Intake Oral 600 ml Output Urine Total 3550 ml # Bowel Movements 1 Physical Exam Physical Exam NAD, AO Nontender abd nonlabored respirations soto draining yellow urine Diagnosis PROBLEM LIST Problems Medical Problems: (1) Anemia Status: Acute (2) ARF (acute renal failure) Status: Acute Assessment Assessment Problems Medical Problems: (1) Anemia Status: Acute (2) ARF (acute renal failure) Status: Acute Plan Plan of Care -- Gross hematuria Had cleared then experienced urethral trauma from soto replacement which prompted recurrent hematuria while here. Urine is peach off CBI currently. Hgb remains stable. Continue to monitor. --CKD Cr remains stable this admission, continue to monitor. Does have bilateral hydronephrosis. Procedure as below to evaluate. --Urinary Retention Failed on VT while inpatient. Recommend leaving soto in place for 2wks prior to next VT. Continue with Proscar daily for prostatic bleeding. Tamsulosin. Reviewed CT imaging showing bilateral moderate hydronephrosis and bladder wall thickening, suggestive of UTI. No obstructing stone. Also found to have re troperitoneal and pelvic adenopathy concerning for malignancy. May benefit from oncology consult. There is mention of metastatic bladder cancer in notes this stay but pt declines any history of this and I do not see any records to support this diagnosis at this time. Pt need cystoscopy, possible biopsy, possible bilateral stent placement. Procedure is scheduled inpatient later this week, after 1wk of abx. 09/[address] Jauregui. NPO night before. D/w pt, agreeable. D/w Dr. Jauregui Comment Review of Relevant I have reviewed the following items samuel (where applicable) has been applied. Labs Laboratory Tests Test 09/20/21 17:02 09/20/21 20:22 09/21/21 06:10 09/22/21 06:15 Glucose (Fingerstick) 160 mg/dL (70-99) 170 mg/dL (70-99) Hemoglobin 7.6 g/dL (13.0-17.5) 7.5 g/dL (13.0-17.5) Sodium Level 141 mmol/L (136-145) 145 mmol/L (136-145) Potassium Level 3.8 mmol/L (3.5-5.1) 3.3 mmol/L (3.5-5.1) Chloride Level 108 mmol/L (98-107) 111 mmol/L (98-107) Carbon Dioxide Level 21 mmol/L (21-32) 22 mmol/L (21-32) Anion Gap 12 (6-14) 12 (6-14) Blood Urea Nitrogen 32 mg/dL (8-26) 30 mg/dL (8-26) Creatinine 2.6 mg/dL (0.7-1.3) 2.7 mg/dL (0.7-1.3) Estimated GFR (Cockcroft-Gault) 29.1 27.9 Glucose Level 128 mg/dL (70-99) 123 mg/dL (70-99) Calcium Level 8.5 mg/dL (8.5-10.1) 8.1 mg/dL (8.5-10.1) White Blood Count 11.8 x10^3/uL (4.0-11.0) Red Blood Count 3.29 x10^6/uL (4.30-5.70) Hematocrit 24.4 % (39.0-53.0) Mean Corpuscular Volume 74 fL (79-100) Mean Corpuscular Hemoglobin 23 pg (25-35) Mean Corpuscular Hemoglobin Concent 31 g/dL (31-37) Red Cell Distribution Width 23.0 % (11.5-14.5) Platelet Count 256 x10^3/uL (140-400) Laboratory Tests Test 09/22/21 06:15 White Blood Count 11.8 x10^3/uL (4.0-11.0) Red Blood Count 3.29 x10^6/uL (4.30-5.70) Hemoglobin 7.5 g/dL (13.0-17.5) Hematocrit 24.4 % (39.0-53.0) Mean Corpuscular Volume 74 fL (79-100) Mean Corpuscular Hemoglobin 23 pg (25-35) Mean Corpuscular Hemoglobin Concent 31 g/dL (31-37) Red Cell Distribution Width 23.0 % (11.5-14.5) Platelet Count 256 x10^3/uL (140-400) Sodium Level 145 mmol/L (136-145) Potassium Level 3.3 mmol/L (3.5-5.1) Chloride Level 111 mmol/L (98-107) Carbon Dioxide Level 22 mmol/L (21-32) Anion Gap 12 (6-14) Blood Urea Nitrogen 30 mg/dL (8-26) Creatinine 2.7 mg/dL (0.7-1.3) Estimated GFR (Cockcroft-Gault) 27.9 Glucose Level 123 mg/dL (70-99) Calcium Level 8.1 mg/dL (8.5-10.1) Microbiology 09/16/21 Urine Culture - Final, Complete Proteus Mirabilis Medications Current Medications Ondansetron HCl (Zofran) 4 mg PRN Q8HRS PRN IVP NAUSEA/VOMITING; Start 09/15/21 at 16:45; Stop 09/16/21 at 16:44; Status DC Morphine Sulfate (Morphine Sulfate) 4 mg PRN Q2HR PRN IVP PAIN; Start 09/15/21 at 16:45; Stop 09/16/21 at 16:44; Status DC Acetaminophen (Tylenol) 650 mg PRN Q4HRS PRN PO FEVER > 100.3'F Last administered on 09/15/21at 18:16; Start 09/15/21 at 16:45; Stop 09/16/21 at 16:44; Status DC Buspirone HCl (Buspar) 5 mg BID PO Last administered on 09/21/21at 22:19; Start 09/15/21 at 21:00 Ferrous Sulfate (Feosol) 325 mg BID WMEALS PO Last administered on 09/22/21at 08:00; Start 09/16/21 at 08:00 Albuterol/ Ipratropium (Duoneb) 3 ml QID NEB Last administered on 09/22/21at 08:28; Start 09/15/21 at 21:00 Lactobacillus Rhamnosus (Culturelle) 1 cap BID PO Last administered on 09/21/21at 22:18; Start 09/15/21 at 21:00 Levothyroxine Sodium (Synthroid) 88 mcg DAILY06 PO Last administered on 09/22/21at 06:15; Start 09/16/21 at 06:00 Ondansetron HCl (Zofran Odt) 4 mg Q8HRS PO Last administered on 09/22/21at 06:16; Start 09/15/21 at 22:00 Sertraline HCl (Zoloft) 12.5 mg DAILY PO Last administered on 09/21/21at 08:26; Start 09/16/21 at 09:00 Sodium Chloride 1,000 ml @ 100 mls/hr Q10H IV Last administered on 09/22/21at 03:20; Start 09/16/21 at 09:30 Finasteride (Proscar) 5 mg DAILY PO Last administered on 09/22/21at 11:19; Start 09/16/21 at 11:00 Multivitamins (Thera M Plus) 1 tab DAILY PO Last administered on 09/21/21at 08:26; Start 09/17/21 at 10:00 Ascorbic Acid (Vitamin C) 500 mg BID PO Last administered on 09/21/21at 22:18; Start 09/17/21 at 10:00 Vitamin A/Vitamin D (Vitamin A & D Ointment) 1 germain BID TP Last administered on 09/21/21at 22:18; Start 09/17/21 at 21:00 Ceftriaxone Sodium (Rocephin) 1 gm Q24H IVP Last administered on 09/20/21at 17:10; Start 09/17/21 at 16:00; Stop 09/21/21 at 12:28; Status DC Fentanyl Citrate (Fentanyl 2ml Vial) 50 mcg PRN Q4HRS PRN IVP PAIN Last administered on 09/20/21at 20:09; Start 09/18/21 at 12:00 Cefdinir (Omnicef) 300 mg BID PO Last administered on 09/21/21at 22:19; Start 09/21/21 at 21:00 Potassium Chloride (Klor-Con) 40 meq 1X ONCE PO ; Start 09/22/21 at 09:00; Stop 09/22/21 at 09:02; Status DC Active Scripts Active Reported Buspirone Hcl 5 Mg Tablet 1 Tab PO BID A and D Ointment (Vits A and D/White Pet/Lanolin) 42.5 Gm Oint...g. 42.5 Gm TP PRN Q1HR PRN Dialyvite With Zinc Tablet (Vit B Cplx #11/Fa/C/Biot/Zn Ox) 1 Each Tablet 1 Tab PO DAILY 30 Days Sertraline Hcl Oral Conc (Sertraline Hcl) 20 Mg/1 Ml Oral.conc 12.5 Mg PO DAILY Ondansetron Odt (Ondansetron) 4 Mg Tab.rapdis 1 Tab PO PRN Q6-8HRS Levothyroxine Sodium 88 Mcg Tablet 1 Tab PO DAILY06 Culturelle (Lactobacillus Rhamnosus Gg) 1 Each Cap.sprink 1 Cap PO BID 30 Days Duoneb 0.5-3(2.5) Mg/3 Ml (Albuterol/Ipratropium) 3 Ml Ampul.neb 3 Ml NEB QID Ferrous Sulfate 325 Mg Tablet 1 Tab PO BID WMEALS Vitamin C (Ascorbic Acid) 500 Mg Capsule.er 1 Cap PO DAILY 30 Days Acetaminophen 325 Mg Tablet 2 Tab PO PRN Q4-6HRS PRN 24 Days Multi Vitamin Daily (Multivitamin) 1 Each Tablet 1 Tab PO DAILY 30 Days Vitals/I & O Vital Sign - Last 24 Hours 09/21/21 09/21/21 09/21/21 09/21/21 15:00 15:37 19:00 19:40 Temp 98.8 98.7 98.8 98.7 Pulse 96 85 Resp 20 14 B/P (MAP) 148/79 (102) 147/60 (89) Pulse Ox 96 95 O2 Delivery Room Air Room Air Room Air Room Air 09/21/21 09/21/21 09/22/21 09/22/21 21:00 23:00 03:00 07:00 Temp 98.9 98.7 98.9 98.7 Pulse 88 80 80 Resp 14 14 18 B/P (MAP) 96/63 (74) 132/68 (89) 151/72 (98) Pulse Ox 97 95 94 96 O2 Delivery Room Air Room Air Room Air Room Air 09/22/21 09/22/21 09/22/21 09/22/21 08:00 08:30 11:00 11:59 Temp 97.8 97.8 Pulse 89 Resp 16 B/P (MAP) 122/56 (78) Pulse Ox 95 94 O2 Delivery Room Air Room Air Room Air Room Air Intake and Output 09/21/21 09/21/21 09/22/21 15:00 23:00 07:00 Intake Total 600 ml Output Total 2950 ml 600 ml Balance -2950 ml 0 ml BRITTANI STRICKLAND September 22, 2021 12:52
[2021-09-22 15:00] VITALS: BP 116/65
[2021-09-22 19:25] VITALS: BP 168/100
[2021-09-22 23:32] VITALS: BP 154/82
[2021-09-23] MEDS: IV NORMAL SALINE 1000ML BAG 1,000 ML IV SCH (02:00)
[2021-09-23 02:49] VITALS: BP 149/75
[2021-09-23] MEDS: ONDANSETRON ODT 4 MG TAB.RAPDIS. PO SCH ×3 (06:00→21:41)
[2021-09-23] MEDS: LEVOTHYROXINE 88 MCG TABLET PO SCH (06:00)
[2021-09-23 06:18] LABS: CALCIUM 8.3 mg/dL (8.5-10.1); CREATININE 2.8 mg/dL (0.7-1.3); GFR 26.7; POTASSIUM 3.5 mmol/L (3.5-5.1)
[2021-09-23 07:00] VITALS: BP 132/65
[2021-09-23] MEDS: IPRATRPIUM/ALBUTEROL 0.5/2.5MG 3 ML NEBU. NEB SCH ×4 (07:40→20:54)
[2021-09-23] MEDS: LACTOBACILLUS RHAMNOSUS GG 1 CAPSULE. PO SCH ×2 (08:50→21:41)
[2021-09-23] MEDS: FINASTERIDE 5 MG TABLET. PO SCH (08:50)
[2021-09-23] MEDS: CEFDINIR 300 MG CAPSULE PO SCH ×2 (08:50→21:40)
[2021-09-23] MEDS: ASCORBIC ACID 500 MG TABLET PO SCH ×2 (08:50→21:41)
[2021-09-23] MEDS: busPIRone 5 MG TABLET. PO SCH ×2 (08:50→21:41)
[2021-09-23] MEDS: FERROUS SULFATE 325 MG TABLET. PO SCH ×2 (08:50→18:21)
[2021-09-23] MEDS: SERTRALINE 25 MG TABLET. PO SCH (08:51)
[2021-09-23] MEDS: MULTIVITAMIN with MINERAL TABLET. PO SCH (08:51)
--- NOTE | 2021-09-23 08:57 | PDOC ---
DATE OF SERVICE DATE: 09/23/21 TIME: 08:56 SUBJECTIVE ROS Stable , denies N/V. No SOB OBJECTIVE Vital Signs Vital Signs Date Time Temp Pulse Resp B/P (MAP) Pulse Ox O2 Delivery O2 Flow Rate FiO2 09/23/21 07:40 95 Room Air 09/23/21 07:00 98.4 79 18 132/65 (87) 98.4 I & 0 Intake and Output 09/23/21 07:00 Intake Total 360 ml Output Total 1600 ml Balance -1240 ml Intake Oral 360 ml Output Urine Total 1600 ml # Bowel Movements 2 PHYSICAL EXAM Physical Exam General NAD HEEN OM moist Neck Supple Lungs CTA CV RRR Abd soft, NT Neuro Grossly Normal Soto + DIAGNOSIS/ASSESSMENT Assessment & Plan AMBROCIO- Creat stable 2.8 , ATN vs new baseline , maintain fluid balance , supportive care, Avoid nephrotoxins CKD Stage 3 A- baseline Cr 1.5-1.9 [address] [facility] records HyperNatremia- Mild , Agree wit Hypotonic fluid replacement UTI - UA with Proteus Anemia- Acute < 7 POA ; s/p PRBC x2 stable currently Gross hematuria POA -cleared with CBI then experienced urethral trauma from soto replacement which prompted recurrent hematuria while here. Currently Off CBI Moderate bilateral hydronephroureter with right greater than left urothelial thickening and diffuse bladder wall thickening. Correlate for urinary tract infection.Urology Following, Bladder cancer ( Per Dr Austin's note ) with bilateral hydronephrosis and also retroperitoneal adenopathy, which is increasing. He has also a bulky conglomerate left pelvic sidewall adenopathy measuring 5.2 x 2.3 with prominent bilateral inguinal lymph nodes. Deep vein thrombosis of his left lower extremity for which he had an IVC filter placed successfully, cannot be anticoagulated. Benign prostatic hypertrophy with bladder outlet obstruction requiring indwelling Soto catheter. COMMENT/RELEVANT DATA Meds Current Medications Medications (Trade) Dose Ordered Sig/Yasir Start Time Stop Time Status Last Admin Dose Admin Acetaminophen (Tylenol) 650 mg PRN Q4HRS PRN 09/15/21 16:45 09/16/21 16:44 DC 09/15/21 18:16 650 MG Albuterol/ Ipratropium (Duoneb) 3 ml QID 09/15/21 21:00 09/23/21 07:40 3 ML Ascorbic Acid (Vitamin C) 500 mg BID 09/17/21 10:00 09/23/21 08:50 500 MG Buspirone HCl (Buspar) 5 mg BID 09/15/21 21:00 09/23/21 08:50 5 MG Cefdinir (Omnicef) 300 mg BID 09/21/21 21:00 09/23/21 08:50 300 MG Ceftriaxone Sodium (Rocephin) 1 gm Q24H 09/17/21 16:00 09/21/21 12:28 DC 09/20/21 17:10 1 GM Fentanyl Citrate (Fentanyl 2ml Vial) 50 mcg PRN Q4HRS PRN 09/18/21 12:00 09/20/21 20:09 50 MCG Ferrous Sulfate (Feosol) 325 mg BID WMEALS 09/16/21 08:00 09/23/21 08:50 325 MG Finasteride (Proscar) 5 mg DAILY 09/16/21 11:00 09/23/21 08:50 5 MG Lactobacillus Rhamnosus (Culturelle) 1 cap BID 09/15/21 21:00 09/23/21 08:50 1 CAP Levothyroxine Sodium (Synthroid) 88 mcg DAILY06 09/16/21 06:00 09/23/21 06:00 88 MCG Morphine Sulfate (Morphine Sulfate) 4 mg PRN Q2HR PRN 09/15/21 16:45 09/16/21 16:44 DC Multivitamins (Thera M Plus) 1 tab DAILY 09/17/21 10:00 09/23/21 08:51 1 TAB Ondansetron HCl (Zofran Odt) 4 mg Q8HRS 09/15/21 22:00 09/23/21 06:00 4 MG Ondansetron HCl (Zofran) 4 mg PRN Q8HRS PRN 09/15/21 16:45 09/16/21 16:44 DC Potassium Chloride (Klor-Con) 40 meq 1X ONCE 09/22/21 09:00 09/22/21 09:02 DC 09/22/21 15:35 40 MEQ Sertraline HCl (Zoloft) 12.5 mg DAILY 09/16/21 09:00 09/23/21 08:51 12.5 MG Sodium Chloride 1,000 ml @ 100 mls/hr Q10H 5/18/22 09:30 09/23/21 02:00 100 MLS/HR Vitamin A/Vitamin D (Vitamin A & D Ointment) 1 germain BID 09/17/21 21:00 09/21/21 22:18 1 [facility] Lab Laboratory Tests Test 09/23/21 05:40 Hemoglobin 7.9 g/dL (13.0-17.5) Sodium Level 148 mmol/L (136-145) Potassium Level 3.5 mmol/L (3.5-5.1) Chloride Level 115 mmol/L (98-107) Carbon Dioxide Level 21 mmol/L (21-32) Anion Gap 12 (6-14) Blood Urea Nitrogen 32 mg/dL (8-26) Creatinine 2.8 mg/dL (0.7-1.3) Estimated GFR (Cockcroft-Gault) 26.7 Glucose Level 136 mg/dL (70-99) Calcium Level 8.3 mg/dL (8.5-10.1) Results All relevant outside records, renal labs, imaging studies, telemetry/EKG's were reviewed. Justicifation of Admission Dx: Justifications for Admission: Justification of Admission Dx: N/A MELA MENDOZA MD September 23, 2021 08:57
[2021-09-23] MEDS ORDERED: DEXTROSE 50% 25 GM / 50ML DISP.SYRIN. IV PRN (09:15)
--- NOTE | 2021-09-23 09:43 | PN ---
PROGRESS NOTES Date of Service DATE: 09/23/21 TIME: 09:42 Subjective Subjective Pt states he isn't feeling great but not sure what exactly Objective Objective Vital Signs Date Time Temp Pulse Resp B/P (MAP) Pulse Ox O2 Delivery O2 Flow Rate FiO2 09/23/21 07:40 95 Room Air 09/23/21 07:00 98.4 79 18 132/65 (87) 98.4 09/20/21 03:00 Intake and Output 09/23/21 06:59 Intake Total 360 ml Output Total 1600 ml Balance -1240 ml Intake Oral 360 ml Output Urine Total 1600 ml # Bowel Movements 2 Physical Exam Physical Exam NAD, AO nonlabored breathing NT abd soto yellow urine Diagnosis PROBLEM LIST Problems Medical Problems: (1) Anemia Status: Acute (2) ARF (acute renal failure) Status: Acute Assessment Assessment Problems Medical Problems: (1) Anemia Status: Acute (2) ARF (acute renal failure) Status: Acute Plan Plan of Care -- Gross hematuria Had cleared then experienced urethral trauma from soto replacement which prompted recurrent hematuria while here. Urine is peach off CBI currently. Hgb remains stable. Continue to monitor. --CKD Cr trending up, continue to monitor. Does have bilateral hydronephrosis. Procedure as below to evaluate. --Urinary Retention Failed on VT while inpatient. Recommend leaving soto in place for 2wks prior to next VT. Continue with Proscar daily for prostatic bleeding. Tamsulosin. Reviewed CT imaging showing bilateral moderate hydronephrosis and bladder wall thickening, suggestive of UTI. No obstructing stone. Also found to have r etroperitoneal and pelvic adenopathy concerning for malignancy. May benefit from oncology consult. There is mention of metastatic bladder cancer in notes this stay but pt declines any history of this and I do not see any records to support this diagnosis at this time. Pt need cystoscopy, possible biopsy, possible bilateral stent placement. Procedure planned for tomorrow. 09/[address] Jauregui. NPO night before. D/w pt, agreeable. D/w Dr. Jauregui Comment Review of Relevant I have reviewed the following items samuel (where applicable) has been applied. Labs Laboratory Tests Test 09/22/21 06:15 09/23/21 05:40 White Blood Count 11.8 x10^3/uL (4.0-11.0) Red Blood Count 3.29 x10^6/uL (4.30-5.70) Hemoglobin 7.5 g/dL (13.0-17.5) 7.9 g/dL (13.0-17.5) Hematocrit 24.4 % (39.0-53.0) Mean Corpuscular Volume 74 fL (79-100) Mean Corpuscular Hemoglobin 23 pg (25-35) Mean Corpuscular Hemoglobin Concent 31 g/dL (31-37) Red Cell Distribution Width 23.0 % (11.5-14.5) Platelet Count 256 x10^3/uL (140-400) Sodium Level 145 mmol/L (136-145) 148 mmol/L (136-145) Potassium Level 3.3 mmol/L (3.5-5.1) 3.5 mmol/L (3.5-5.1) Chloride Level 111 mmol/L (98-107) 115 mmol/L (98-107) Carbon Dioxide Level 22 mmol/L (21-32) 21 mmol/L (21-32) Anion Gap 12 (6-14) 12 (6-14) Blood Urea Nitrogen 30 mg/dL (8-26) 32 mg/dL (8-26) Creatinine 2.7 mg/dL (0.7-1.3) 2.8 mg/dL (0.7-1.3) Estimated GFR (Cockcroft-Gault) 27.9 26.7 Glucose Level 123 mg/dL (70-99) 136 mg/dL (70-99) Calcium Level 8.1 mg/dL (8.5-10.1) 8.3 mg/dL (8.5-10.1) Laboratory Tests Test 09/23/21 05:40 Hemoglobin 7.9 g/dL (13.0-17.5) Sodium Level 148 mmol/L (136-145) Potassium Level 3.5 mmol/L (3.5-5.1) Chloride Level 115 mmol/L (98-107) Carbon Dioxide Level 21 mmol/L (21-32) Anion Gap 12 (6-14) Blood Urea Nitrogen 32 mg/dL (8-26) Creatinine 2.8 mg/dL (0.7-1.3) Estimated GFR (Cockcroft-Gault) 26.7 Glucose Level 136 mg/dL (70-99) Calcium Level 8.3 mg/dL (8.5-10.1) Microbiology 09/16/21 Urine Culture - Final, Complete Proteus Mirabilis Medications Current Medications Ondansetron HCl (Zofran) 4 mg PRN Q8HRS PRN IVP NAUSEA/VOMITING; Start 09/15/21 at 16:45; Stop 09/16/21 at 16:44; Status DC Morphine Sulfate (Morphine Sulfate) 4 mg PRN Q2HR PRN IVP PAIN; Start 09/15/21 at 16:45; Stop 09/16/21 at 16:44; Status DC Acetaminophen (Tylenol) 650 mg PRN Q4HRS PRN PO FEVER > 100.3'F Last administered on 09/15/21at 18:16; Start 09/15/21 at 16:45; Stop 09/16/21 at 16:44; Status DC Buspirone HCl (Buspar) 5 mg BID PO Last administered on 09/23/21 08:50; Start 09/15/21 at 21:00 Ferrous Sulfate (Feosol) 325 mg BID WMEALS PO Last administered on 09/23/21 08:50; Start 09/16/21 at 08:00 Albuterol/ Ipratropium (Duoneb) 3 ml QID NEB Last administered on 09/23/21at 0 7:40; Start 09/15/21 at 21:00 Lactobacillus Rhamnosus (Culturelle) 1 cap BID PO Last administered on 09/23/21at 08:50; Start 09/15/21 at 21:00 Levothyroxine Sodium (Synthroid) 88 mcg DAILY06 PO Last administered on 09/23/21at 06:00; Start 09/16/21 at 06:00 Ondansetron HCl (Zofran Odt) 4 mg Q8HRS PO Last administered on 09/23/21 06:00; Start 09/15/21 at 22:00 Sertraline HCl (Zoloft) 12.5 mg DAILY PO Last administered on 09/23/21at 08:51; Start 09/16/21 at 09:00 Sodium Chloride 1,000 ml @ 100 mls/hr Q10H IV Last administered on 09/23/21at 02:00; Start 09/16/21 at 09:30; Stop 09/23/21 at 09:02; Status DC Finasteride (Proscar) 5 mg DAILY PO Last administered on 09/23/21at 08:50; Start 09/16/21 at 11:00 Multivitamins (Thera M Plus) 1 tab DAILY PO Last administered on 09/23/21at 08:51; Start 09/17/21 at 10:00 Ascorbic Acid (Vitamin C) 500 mg BID PO Last administered on 09/23/21at 08:50; Start 09/17/21 at 10:00 Vitamin A/Vitamin D (Vitamin A & D Ointment) 1 germain BID TP Last administered on 09/21/21at 22:18; Start 09/17/21 at 21:00 Ceftriaxone Sodium (Rocephin) 1 gm Q24H IVP Last administered on 09/20/21at 17:10; Start 09/17/21 at 16:00; Stop 09/21/21 at 12:28; Status DC Fentanyl Citrate (Fentanyl 2ml Vial) 50 mcg PRN Q4HRS PRN IVP PAIN Last administered on 09/20/21at 20:09; Start 09/18/21 at 12:00 Cefdinir (Omnicef) 300 mg BID PO Last administered on 09/23/21at 08:50; Start 09/21/21 at 21:00 Potassium Chloride (Klor-Con) 40 meq 1X ONCE PO Last administered on 09/22/21at 15:35; Start 09/22/21 at 09:00; Stop 09/22/21 at 09:02; Status DC Dextrose 1,000 ml @ 100 mls/hr Q10H IV ; Start 09/23/21 at 09:30 Insulin Human Lispro (HumaLOG) 0-7 UNITS QIDACHS SQ ; Start 09/23/21 at 11:30 Dextrose (Dextrose 50%-Water Syringe) 12.5 gm PRN Q15MIN PRN IV SEE COMMENTS; Start 09/23/21 at 09:15 Active Scripts Active Reported Buspirone Hcl 5 Mg Tablet 1 Tab PO BID A and D Ointment (Vits A and D/White Pet/Lanolin) 42.5 Gm Oint...g. 42.5 Gm TP PRN Q1HR PRN Dialyvite With Zinc Tablet (Vit B Cplx #11/Fa/C/Biot/Zn Ox) 1 Each Tablet 1 Tab PO DAILY 30 Days Sertraline Hcl Oral Conc (Sertraline Hcl) 20 Mg/1 Ml Oral.conc 12.5 Mg PO DAILY Ondansetron Odt (Ondansetron) 4 Mg Tab.rapdis 1 Tab PO PRN Q6-8HRS Levothyroxine Sodium 88 Mcg Tablet 1 Tab PO DAILY06 Culturelle (Lactobacillus Rhamnosus Gg) 1 Each Cap.sprink 1 Cap PO BID 30 Days Duoneb 0.5-3(2.5) Mg/3 Ml (Albuterol/Ipratropium) 3 Ml Ampul.neb 3 Ml NEB QID Ferrous Sulfate 325 Mg Tablet 1 Tab PO BID WMEALS Vitamin C (Ascorbic Acid) 500 Mg Capsule.er 1 Cap PO DAILY 30 Days Acetaminophen 325 Mg Tablet 2 Tab PO PRN Q4-6HRS PRN 24 Days Multi Vitamin Daily (Multivitamin) 1 Each Tablet 1 Tab PO DAILY 30 Days Vitals/I & O Vital Sign - Last 24 Hours 09/22/21 09/22/21 09/22/21 09/22/21 11:00 11:59 15:00 15:50 Temp 97.8 98.2 97.8 98.2 Pulse 89 77 Resp 16 16 B/P (MAP) 122/56 (78) 116/65 (82) Pulse Ox 94 96 O2 Delivery Room Air Room Air Room Air Room Air 09/22/21 09/22/21 09/22/21 09/22/21 19:25 19:50 20:36 23:32 Temp 98.5 98.9 98.5 98.9 Pulse 98 87 Resp 18 20 B/P (MAP) 168/100 (122) 154/82 (106) Pulse Ox 97 96 94 O2 Delivery Room Air Room Air Room Air Room Air 09/23/21 09/23/21 09/23/21 02:49 07:00 07:40 Temp 99.1 98.4 99.1 98.4 Pulse 91 79 Resp 18 18 B/P (MAP) 149/75 (99) 132/65 (87) Pulse Ox 94 97 95 O2 Delivery Room Air Room Air Room Air Intake and Output 09/22/21 09/22/21 09/23/21 14:59 22:59 06:59 Intake Total 360 ml Output Total 1600 ml Balance -1240 ml BRITTANI STRICKLAND September 23, 2021 09:43
--- NOTE | 2021-09-23 10:07 | PN ---
DATE: 09/23/2021 SUBJECTIVE: The patient is resting, slightly up in bed, in no apparent distress. He is awake, alert. On questioning him, he denied any complaint. Nursing staff did not voice any concerns, stated that he had an uneventful night. PHYSICAL EXAMINATION: GENERAL: When I examined him, he looked pale, but no jaundice, cyanosis or thyromegaly. No jugular venous distention. No limb edema. VITAL SIGNS: His heart rate was 79, blood pressure is 132/65, temperature was 98.4, respiratory rate was 18 and oxygen saturation was 97% on room air. HEAD, EYES, EARS, NOSE, AND THROAT: Normocephalic, atraumatic. NECK: Supple. HEART: Showed normal first and second heart sounds. No gallop, rub or murmur. CHEST: Clear to auscultation, no crepitation or rhonchi. ABDOMEN: Distended, soft, nontender. NEUROLOGIC: He was awake, alert, responding appropriately. All cranial nerves intact. He moves upper extremities to greater extent than his lower extremities, mostly bedbound. He has an indwelling Latif catheter. His intake over the last 24 hours was 600, output was 3550. LABORATORY DATA: As of this morning, his hemoglobin is 7.9. His chemistry showed sodium is up to 148, potassium 3.5, chloride 115, bicarbonate 21, anion gap of 12, BUN 32, creatinine 2.8. Estimated GFR was 26 mL per minute. Her glucose 136 and calcium was 8.3. ASSESSMENT: 1. Recurrent episode of gross hematuria, blood loss anemia. He has so far received 2 units of packed RBCs. This morning, hemoglobin was 7.9. 2. Urinary tract infection with growth of Proteus mirabilis, sensitive to IV ceftriaxone. He is now on cefdinir 300 mg twice a day. 3. Acute on chronic kidney injury. His baseline creatinine is about 2. As of this morning, his creatinine is up to 2.9. 5. Bladder cancer with bilateral hydronephrosis and also retroperitoneal adenopathy, which is increasing. He has also had bulky conglomerate left pelvic sidewall adenopathy measuring 5.2 x 2.3 with prominent bilateral inguinal lymph nodes. 6. The patient has deep vein thrombosis of his left lower extremity for which he has had an IVC filter placed successfully as he cannot be anticoagulated. 7. He has multiple other medical problems including: A. Hypertension. B. Type 2 diabetes mellitus. C. Benign prostatic hypertrophy with bladder outlet obstruction requiring indwelling Latif catheter. PLAN: To continue with IV fluid in the form of D5W as his sodium is up to 148. Continue with oral antibiotic. He should be n.p.o. from midnight tonight. LIO/KEENAN DR: Parminder TID: [id number]
[2021-09-23] MEDS: IV DEXTROSE 5% 1,000 ML IV SCH ×2 (10:47→17:46)
[2021-09-23 11:00] VITALS: BP 131/65
[2021-09-23] MEDS: VITS A & D/LANOLIN TOPICAL OINTMENT 42GM TUBE. TP SCH ×2 (11:06→21:00)
[2021-09-23] MEDS: INSULIN LISPRO 300 UNITS/3 ML VIAL. SQ SCH ×3 (11:30→21:00)
--- NOTE | 2021-09-23 11:30 | NUR ---
Insuling not given as patient is refusing to eat any lunch.
[2021-09-23 15:00] VITALS: BP 139/66
[2021-09-23 19:00] VITALS: BP 139/75
[2021-09-23 23:00] VITALS: BP 134/63
[2021-09-24] VITALS (11 sets, daily range): BP systolic 123–151; BP diastolic 59–86
[2021-09-24] MEDS ORDERED: MORPHINE SULFATE 2 MG/ML INJ. IVP PRN (06:00)
[2021-09-24] MEDS: ONDANSETRON ODT 4 MG TAB.RAPDIS. PO SCH ×3 (06:00→21:42)
[2021-09-24] MEDS ORDERED: fentaNYL PF VIAL 100 MCG/2 ML VIAL IVP PRN ×2 (06:00)
[2021-09-24] MEDS: LEVOTHYROXINE 88 MCG TABLET PO SCH (06:00)
[2021-09-24] MEDS ORDERED: PROCHLORPERAZINE 10 MG/2 ML VIAL. IVP PRN (06:00)
[2021-09-24] MEDS ORDERED: IV RINGERS,LACTATED 1000ML 1,000 ML IV SCH (06:00)
[2021-09-24] MEDS ORDERED: HYDROmorphone 2 MG/ML INJ. IVP PRN (06:00)
[2021-09-24 06:41] LABS: HEMATOCRIT 23.6 % (39.0-53.0); HEMOGLOBIN 7.3 g/dL (13.0-17.5); RED BLOOD COUNT 3.21 x10^6/uL (4.30-5.70); RED CELL DISTRIBUTION WIDTH 23.2 % (11.5-14.5); WHITE BLOOD COUNT 12.2 x10^3/uL (4.0-11.0)
[2021-09-24 07:03] LABS: CALCIUM 8.1 mg/dL (8.5-10.1); CREATININE 2.8 mg/dL (0.7-1.3); GFR 26.7; POTASSIUM 3.6 mmol/L (3.5-5.1)
[2021-09-24] MEDS ORDERED: SUCCINYLCHOLINE 200 MG/10 ML VIAL. ONE (07:04)
[2021-09-24] MEDS: IV DEXTROSE 5% 1,000 ML IV SCH ×2 (07:22→15:30)
[2021-09-24] MEDS: INSULIN LISPRO 300 UNITS/3 ML VIAL. SQ SCH ×4 (07:30→21:00)
[2021-09-24] MEDS: IPRATRPIUM/ALBUTEROL 0.5/2.5MG 3 ML NEBU. NEB SCH ×4 (07:50→20:29)
[2021-09-24] MEDS: FERROUS SULFATE 325 MG TABLET. PO SCH ×2 (08:00→17:40)
[2021-09-24] MEDS: busPIRone 5 MG TABLET. PO SCH ×2 (09:00→21:42)
[2021-09-24] MEDS: FINASTERIDE 5 MG TABLET. PO SCH (09:00)
[2021-09-24] MEDS: CEFDINIR 300 MG CAPSULE PO SCH ×2 (09:00→21:42)
[2021-09-24] MEDS: SERTRALINE 25 MG TABLET. PO SCH (09:00)
[2021-09-24] MEDS: LACTOBACILLUS RHAMNOSUS GG 1 CAPSULE. PO SCH ×2 (09:00→21:43)
[2021-09-24] MEDS: VITS A & D/LANOLIN TOPICAL OINTMENT 42GM TUBE. TP SCH ×2 (09:00→21:00)
[2021-09-24] MEDS: ASCORBIC ACID 500 MG TABLET PO SCH ×2 (09:00→21:43)
[2021-09-24] MEDS: MULTIVITAMIN with MINERAL TABLET. PO SCH (09:00)
--- NOTE | 2021-09-24 09:15 | PN ---
DATE: 09/24/2021 SUBJECTIVE: The patient is resting, slightly up in bed, in no apparent distress, sleepy, but arousable. On questioning him, denied any complaint. The nursing staff did not voice any concerns, stated that he had an uneventful night. PHYSICAL EXAMINATION: GENERAL: When I examined him, he was pale, but no jaundice, cyanosis or thyromegaly. No jugular venous distention. No limb edema. VITAL SIGNS: His heart rate was 70, blood pressure was 129/61, temperature was 98, respiratory rate was 14 and oxygen saturation was 98% on room air. HEAD, EYES, EARS, NOSE, AND THROAT: Showed normocephalic, atraumatic. NECK: Supple. HEART: Normal first and second heart sounds. No gallop, rub or murmur. CHEST: Showed central trachea, equal bilateral chest expansion, air entry, vesicular breath sounds. No crepitation or rhonchi. ABDOMEN: Scaphoid, soft, nontender. NEUROLOGIC: He was sleepy, but arousable. All cranial nerves intact. He moves upper extremities without difficulty, is mostly bedbound. He has an indwelling Latif catheter. His intake was 360, output was 1600 as of this morning. LABORATORY DATA: His white cell count was 12.2, hemoglobin 7.3, hematocrit 24, MCV 74 and platelet count 255,000. His chemistry showed a serum sodium 144, potassium 3.6, chloride 112, bicarbonate 22, anion gap of 10, BUN 29, creatinine 2.8. Estimated GFR was 26 mL per minute. His glucose 160, calcium was 8.1. ASSESSMENT: 1. Recurrent episode of gross hematuria with blood loss anemia. He has so far received 2 units of packed RBCs. His most recent hemoglobin as of this morning was 7.3. 2. Urinary tract infection with growth of Proteus mirabilis, sensitive to IV ceftriaxone. He is now on cefdinir 300 mg twice a day. 3. Acute on chronic kidney injury. His serum creatinine has plateaued around 2.8 mg/dL. 4. Bladder cancer with bilateral hydronephrosis, also retroperitoneal adenopathy, which is increasing. 5. He has had deep vein thrombosis of his lower extremity for which he has an IVC filter placed successfully as he is not a candidate for oral anticoagulation. 6. The patient has multiple other medical problems including: A. Hypertension. B. Type 2 diabetes mellitus. C. Benign prostatic hypertrophy with bladder outlet obstruction requiring indwelling Latif catheter. PLAN: To continue with IV fluid in the form of D5W as his sodium was high. He is n.p.o. from midnight last night as he is scheduled for cystoscopy and perhaps bilateral ureteral stent deployment and treatment of his bladder cancer. ANTIONETTE DR: Parminder TID: [id number]
[2021-09-24] MEDS ORDERED: IOHEXOL 300 MG/ML 50 ML VIAL. ONE ×2 (10:28→10:29)
[2021-09-24] MEDS ORDERED: LIDOCAINE 2% JELLY 6ML IN APPLICATOR. ONE (10:29)
--- NOTE | 2021-09-24 10:35 | PDOC ---
DATE OF SERVICE DATE: 09/24/21 TIME: 10:34 SUBJECTIVE ROS Stable , denies N/V. No SOB Per nursing he jst got back OR s/p Cystoscopy OBJECTIVE Vital Signs Vital Signs Date Time Temp Pulse Resp B/P (MAP) Pulse Ox O2 Delivery O2 Flow Rate FiO2 09/24/21 07:50 98 Room Air 09/24/21 07:20 2.0 09/24/21 07:00 98.7 79 18 150/73 (98) 98.7 I & 0 Intake and Output 09/24/21 07:00 Intake Total 360 ml Output Total 1200 ml Balance -840 ml Intake Oral 360 ml Output Urine Total 1200 ml # Bowel Movements 3 PHYSICAL EXAM Physical Exam General NAD HEEN OM moist Neck Supple Lungs CTA CV RRR Abd soft, NT Neuro Grossly Normal Soto + DIAGNOSIS/ASSESSMENT Assessment & Plan AMBROCIO- Creat stable 2.8 , ATN vs new baseline , maintain fluid balance , supportive care, Avoid nephrotoxins CKD Stage 3 A- baseline Cr 1.5-1.9 per [facility] records HyperNatremia- Mild , resolved UTI - UA with Proteus Anemia- Acute < 7 POA ; s/p PRBC x2 stable currently Gross hematuria POA -cleared with CBI then experienced urethral trauma from soto replacement which prompted recurrent hematuria while here. Moderate bilateral hydronephroureter with right greater than left urothelial thickening and diffuse bladder wall thickening. Correlate for urinary tract infection.Urology Following, Bladder masses - with bilateral hydronephrosis and also retroperitoneal adenopathy, which is increasing. He has also a bulky conglomerate left pelvic sidewall adenopathy measuring 5.2 x 2.3 with prominent bilateral inguinal lymph nodes.S/P Cystoscopy earlier today - large edematous scrotum with bilateral hydroceles and erosion of the foreskin from likely long-term catheterization. Multiple bladder masses throughout the bladder. Deep vein thrombosis of his left lower extremity for which he had an IVC filter placed successfully, cannot be anticoagulated. Benign prostatic hypertrophy with bladder outlet obstruction requiring indwelling Soto catheter. COMMENT/RELEVANT DATA Meds Current Medications Medications (Trade) Dose Ordered Sig/Yasir Start Time Stop Time Status Last Admin Dose Admin Acetaminophen (Tylenol) 650 mg PRN Q4HRS PRN 09/15/21 16:45 09/16/21 16:44 DC 09/15/21 18:16 650 MG Albuterol/ Ipratropium (Duoneb) 3 ml QID 09/15/21 21:00 09/24/21 07:50 3 ML Ascorbic Acid (Vitamin C) 500 mg BID 09/17/21 10:00 09/23/21 21:41 500 MG Buspirone HCl (Buspar) 5 mg BID 09/15/21 21:00 09/23/21 21:41 5 MG Cefdinir (Omnicef) 300 mg BID 09/21/21 21:00 09/23/21 21:40 300 MG Ceftriaxone Sodium (Rocephin) 1 gm Q24H 09/17/21 16:00 09/21/21 12:28 DC 09/20/21 17:10 1 GM Dextrose (Dextrose 50%-Water Syringe) 12.5 gm PRN Q15MIN PRN 09/23/21 09:15 Fentanyl Citrate (Fentanyl 2ml Vial) 50 mcg PRN Q5MIN PRN 09/24/21 06:00 09/24/21 18:00 Ferrous Sulfate (Feosol) 325 mg BID WMEALS 09/16/21 08:00 09/23/21 18:21 325 MG Finasteride (Proscar) 5 mg DAILY 09/16/21 11:00 09/23/21 08:50 5 MG Hydromorphone HCl (Dilaudid) 0.5 mg PRN Q10MIN PRN 09/24/21 06:00 09/24/21 18:00 Insulin Human Lispro (HumaLOG) 0-7 UNITS QIDACHS 09/23/21 11:30 Iohexol (Omnipaque 300 Mg/ml) 50 ml STK-MED ONCE 09/24/21 10:29 09/24/21 10:29 DC Lactobacillus Rhamnosus (Culturelle) 1 cap BID 09/15/21 21:00 09/23/21 21:41 1 CAP Levothyroxine Sodium (Synthroid) 88 mcg DAILY06 09/16/21 06:00 09/23/21 06:00 88 MCG Lidocaine HCl (Glydo (Lidocaine) Jelly) 6 germain STK-MED ONCE 09/24/21 10:29 09/24/21 10:29 DC Morphine Sulfate (Morphine Sulfate) 1 mg PRN Q10MIN PRN 09/24/21 06:00 09/24/21 18:00 Multivitamins (Thera M Plus) 1 tab DAILY 09/17/21 10:00 09/23/21 08:51 1 TAB Ondansetron HCl (Zofran Odt) 4 mg Q8HRS 09/15/21 22:00 09/23/21 21:41 4 MG Ondansetron HCl (Zofran) 4 mg PRN Q8HRS PRN 09/15/21 16:45 09/16/21 16:44 DC Potassium Chloride (Klor-Con) 40 meq 1X ONCE 09/22/21 09:00 09/22/21 09:02 DC 09/22/21 15:35 40 MEQ Prochlorperazine Edisylate (Compazine) 5 mg PACU PRN PRN 09/24/21 06:00 09/24/21 18:00 Ringer's Solution 1,000 ml @ 30 mls/hr Q24H 09/24/21 06:00 09/24/21 17:59 Sertraline HCl (Zoloft) 12.5 mg DAILY 09/16/21 09:00 09/23/21 08:51 12.5 MG Sodium Chloride 1,000 ml @ 100 mls/hr Q10H 09/16/21 09:30 09/23/21 09:02 DC 09/23/21 02:00 100 MLS/HR Succinylcholine Chloride (Anectine) 200 mg STK-MED ONCE 09/24/21 07:04 09/24/21 07:04 DC Vitamin A/Vitamin D (Vitamin A & D Ointment) 1 germain BID 09/17/21 21:00 09/23/21 21:00 1 [facility] Lab Laboratory Tests Test 09/23/21 11:22 09/23/21 13:30 09/23/21 21:39 09/24/21 05:25 Glucose (Fingerstick) 155 mg/dL (70-99) 172 mg/dL (70-99) Coronavirus (COVID-19)(PCR) Not detected (NOT DETECTD) SARS-CoV-2 Antigen (Rapid) Negative (NEGATIVE) White Blood Count 12.2 x10^3/uL (4.0-11.0) Red Blood Count 3.21 x10^6/uL (4.30-5.70) Hemoglobin 7.3 g/dL (13.0-17.5) Hematocrit 23.6 % (39.0-53.0) Mean Corpuscular Volume 74 fL (79-100) Mean Corpuscular Hemoglobin 23 pg (25-35) Mean Corpuscular Hemoglobin Concent 31 g/dL (31-37) Red Cell Distribution Width 23.2 % (11.5-14.5) Platelet Count 255 x10^3/uL (140-400) Sodium Level 144 mmol/L (136-145) Potassium Level 3.6 mmol/L (3.5-5.1) Chloride Level 112 mmol/L (98-107) Carbon Dioxide Level 22 mmol/L (21-32) Anion Gap 10 (6-14) Blood Urea Nitrogen 29 mg/dL (8-26) Creatinine 2.8 mg/dL (0.7-1.3) Estimated GFR (Cockcroft-Gault) 26.7 Glucose Level 160 mg/dL (70-99) Calcium Level 8.1 mg/dL (8.5-10.1) Test 09/24/21 07:55 Glucose (Fingerstick) 145 mg/dL (70-99) Results All relevant outside records, renal labs, imaging studies, telemetry/EKG's were reviewed. Justicifation of Admission Dx: Justifications for Admission: Justification of Admission Dx: N/A MELA MENDOZA MD September 24, 2021 10:35
[2021-09-24] MEDS ORDERED: IV NORMAL SALINE 1000ML BAG 1,000 ML IV ONE (10:45)
[2021-09-24] MEDS ORDERED: 0.9 % SODIUM CHLORIDE 10 ML DISP.SYRIN. IV PRN (11:30)
[2021-09-24] MEDS ORDERED: LIDOCAINE 1% PF 5 ML VIAL. ONE (11:40)
[2021-09-24] MEDS ORDERED: fentaNYL PF VIAL 100 MCG/2 ML VIAL ONE (11:40)
[2021-09-24] MEDS ORDERED: PROPOFOL 10 MG/ML (20ML) VIAL. IV ONE (11:40)
--- NOTE | 2021-09-24 12:06 | PDOC4 ---
OPERATIVE NOTE: Preop diagnosis: Hematuria Postop diagnosis: Bladder cancer likely metastatic Procedure: Cystoscopy and cystogram Surgeon: Juventino Anesthesia: General IV fluids: 500 cc Blood loss: None Specimens: None Patient stable in transfer recovery 75-year-old male presented with gross hematuria to [facility]. CT scan revealed bulky lymphadenopathy in the pelvis and abdomen and no abnormalities of the bladder. Patient had Latif catheter placed traumatically causing gross hematuria requiring CBI for several days. Preop and consented for cystoscopy and possible transurethral section of bladder tumor or biopsy with retrograde pyelogram. He was consented prior to procedure He was brought to the operating room prepped and draped in lithotomy position usual sterile fashion of note on exam he had a very large edematous scrotum with bilateral hydroceles and also erosion of the foreskin from likely long-term catheterization. Began the procedure with a 21 Portuguese cystoscope and 30 degree lens entered into the urethra however was unable to gain access to the bladder due to the thickened and scrotal wall and bilateral hydroceles. The scope simply was not long enough to reach the bladder. I then obtained a semirigid ureteroscope and advanced a wire into the urethra and again did not have been a visualization with the ureteroscope. Next obtain a flexible ureteroscope after having the wire in place performed cystogram to confirm the bladder. And then advanced the flexible cystoscope into the bladder perform cystoscopy noting multiple bladder masses throughout the bladder. I was unable to identify ureteral orifices. At this point is been determined he likely has metastatic bladder cancer. I reinserted a 20 Portuguese [place] tip Latif catheter over the wire. He will need consult with oncology if treatment if desired. NICANOR MELTON DO September 24, 2021 12:06
--- NOTE | 2021-09-24 12:48 | NUR ---
Received report from [facility] that Dr. Jauregui had removed soto, performed a cystoscopy with cystogram, and placed a 20Fr, 20cc Counsil tip catheter, (red in color), without irrigation, some minimal leaking coming from underneath the catheter, with pink urine, without clots, 40mL in resevoir. BP 135/68, 72, 96%, and patient received 200mL of NS, and IV remains in left hand.
--- NOTE | 2021-09-24 13:38 | NUR ---
Report from Po Mata RN, that patient returned to unit at 1320, and she had to change IV site due to not flushing, but was able to relocate to [facility], [address] [place] [address].
--- NOTE | 2021-09-24 16:01 | NUR ---
Wound/Ostomy Care Wound Type/Assessment: Wound care follow up for bilateral heels DFUs and bilateral buttocks IAD. Pt had just returned from a cysto and having catheter replaced per RN, bloody urine noted in catheter and PU stage 3 on penis where previous catheter had been sitting, pictures and measure were taken of new wound and A&D ointment applied. No other wounds noted. Pt's bedding was changed at time of assessment and pt left turned to his right with purple wedge and heel floated on pillows. Treatment Recommendations/Plan: Cleanse all wound with saline or wound wash. Right heel: apply skin prep and cover with foam, change every 3-4 days. Left heel: apply skin prep to periwound, cover with honey alginate (left in room) and cover with foam, change every 3-4 days. Buttocks/Penis: apply A&D ointment BID and prn. Education provided: pt educated on repositioning q2h and floating heels to help with healing. Offloading surface/device: purple wedge, pillows Recommended Referrals/Tests: n/a Discharge Recommendations for dressings: same as above, wound care will f/u on 10/02/21
[2021-09-25 03:00] VITALS: BP 149/86
[2021-09-25] MEDS: LEVOTHYROXINE 88 MCG TABLET PO SCH (05:41)
[2021-09-25] MEDS: ONDANSETRON ODT 4 MG TAB.RAPDIS. PO SCH ×3 (05:41→21:43)
[2021-09-25] MEDS: IV DEXTROSE 5% 1,000 ML IV SCH ×3 (05:42→21:30)
[2021-09-25 06:03] LABS: CALCIUM 8.2 mg/dL (8.5-10.1); GFR 24.7; POTASSIUM 3.5 mmol/L (3.5-5.1)
[2021-09-25 07:00] VITALS: BP 143/74
[2021-09-25] MEDS: IPRATRPIUM/ALBUTEROL 0.5/2.5MG 3 ML NEBU. NEB SCH ×3 (07:28→20:30)
[2021-09-25] MEDS: INSULIN LISPRO 300 UNITS/3 ML VIAL. SQ SCH ×4 (07:30→21:00)
[2021-09-25] MEDS: FERROUS SULFATE 325 MG TABLET. PO SCH ×2 (08:00→18:00)
--- NOTE | 2021-09-25 08:55 | PDOC ---
DATE OF SERVICE DATE: 09/25/21 TIME: 08:53 SUBJECTIVE ROS Stable , denies N/V. No SOB OBJECTIVE Vital Signs Vital Signs Date Time Temp Pulse Resp B/P (MAP) Pulse Ox O2 Delivery O2 Flow Rate FiO2 09/25/21 07:28 97 Room Air 09/25/21 07:00 98.4 89 16 143/74 (97) 98.4 09/24/21 12:37 10.0 I & 0 Intake and Output 09/25/21 07:00 Intake Total 430 ml Output Total 1855 ml Balance -1425 ml Intake Oral 180 ml IV Total 250 ml Output Urine Total 1855 ml # Voids 1 PHYSICAL EXAM Physical Exam General NAD HEEN OM moist Neck Supple Lungs CTA CV RRR Abd soft, NT Neuro Grossly Normal Soto + DIAGNOSIS/ASSESSMENT Assessment & Plan AMBROCIO- Creat slowly creeping up , ATN vs new baseline , maintain fluid balance , supportive care, Avoid nephrotoxins . Poor Candidate for dialysis if/when indicated due to Underlying comorbidities/Performance status Dr Austin spoke to Oncology -Dr Castillo - given his age and comorbidities not a candidate for Chemo . Dr Austin had discussion with his Daughter - Plan to transition to Hospice CKD Stage 3 A- baseline Cr 1.5-1.9 per [facility] records HyperNatremia- Mild , resolved UTI - UA with Proteus Anemia- Acute < 7 POA ; s/p PRBC x2 stable currently Gross hematuria POA -cleared with CBI then experienced urethral trauma from soto replacement which prompted recurrent hematuria while here. Moderate bilateral hydronephroureter with right greater than left urothelial thickening and diffuse bladder wall thickening. Correlate for urinary tract infection.Urology Following, Bladder masses - was seeing Urology in the past at [facility], no recent follow up . Admitted with with bilateral hydronephrosis and also retroperitoneal adenopathy, which is increasing. He has also a bulky conglomerate left pelvic sidewall adenopathy measuring 5.2 x 2.3 with prominent bilateral inguinal lymph nodes. S/P Cystoscopy 09/24 - large edematous scrotum with bilateral hydroceles and erosion of the foreskin from likely long-term catheterization. Multiple bladder masses throughout the bladder. Dr Austin spoke to Oncology -Dr Castillo - given his age and comorbidities not a candidate for Chemo . Dr Austin had discussion with his Daughter - Plan to transition to Hospice Deep vein thrombosis of his left lower extremity for which he had an IVC filter placed successfully, cannot be anticoagulated. Benign prostatic hypertrophy with bladder outlet obstruction requiring indwelling Soto catheter. Will sign off, COMMENT/RELEVANT DATA Meds Current Medications Medications (Trade) Dose Ordered Sig/Yasir Start Time Stop Time Status Last Admin Dose Admin Acetaminophen (Tylenol) 650 mg PRN Q4HRS PRN 09/15/21 16:45 09/16/21 16:44 DC 09/15/21 18:16 650 MG Albuterol/ Ipratropium (Duoneb) 3 ml QID 09/15/21 21:00 09/25/21 07:28 3 ML Ascorbic Acid (Vitamin C) 500 mg BID 09/17/21 10:00 09/24/21 21:43 500 MG Buspirone HCl (Buspar) 5 mg BID 09/15/21 21:00 09/24/21 21:42 5 MG Cefazolin Sodium/ Dextrose 50 ml @ As Directed STK-MED ONCE 09/24/21 11:09 09/24/21 11:09 DC Cefdinir (Omnicef) 300 mg BID 09/21/21 21:00 09/24/21 21:42 300 MG Ceftriaxone Sodium (Rocephin) 1 gm Q24H 09/17/21 16:00 09/21/21 12:28 DC 09/20/21 17:10 1 GM Dextrose (Dextrose 50%-Water Syringe) 12.5 gm PRN Q15MIN PRN 09/23/21 09:15 Fentanyl Citrate (Fentanyl 2ml Vial) 100 mcg STK-MED ONCE 09/24/21 11:40 09/24/21 11:41 DC Ferrous Sulfate (Feosol) 325 mg BID WMEALS 09/16/21 08:00 09/24/21 17:40 325 MG Finasteride (Proscar) 5 mg DAILY 09/16/21 11:00 09/23/21 08:50 5 MG Hydromorphone HCl (Dilaudid) 0.5 mg PRN Q10MIN PRN 09/24/21 06:00 09/24/21 18:00 DC Insulin Human Lispro (HumaLOG) 0-7 UNITS QIDACHS 09/23/21 11:30 Iohexol (Omnipaque 300 Mg/ml) 50 ml STK-MED ONCE 09/24/21 10:29 09/24/21 10:29 DC Lactobacillus Rhamnosus (Culturelle) 1 cap BID 09/15/21 21:00 09/24/21 21:43 1 CAP Levothyroxine Sodium (Synthroid) 88 mcg DAILY06 09/16/21 06:00 09/25/21 05:41 88 MCG Lidocaine HCl (Glydo (Lidocaine) Jelly) 6 germain STK-MED ONCE 09/24/21 10:29 09/24/21 10:29 DC Lidocaine HCl (Xylocaine-Mpf 1% 5ml Vial) 5 ml STK-MED ONCE 09/24/21 11:40 09/24/21 11:40 DC Morphine Sulfate (Morphine Sulfate) 1 mg PRN Q10MIN PRN 09/24/21 06:00 09/24/21 18:00 DC Multivitamins (Thera M Plus) 1 tab DAILY 09/17/21 10:00 09/23/21 08:51 1 TAB Ondansetron HCl (Zofran Odt) 4 mg Q8HRS 09/15/21 22:00 09/25/21 05:41 4 MG Ondansetron HCl (Zofran) 4 mg PRN Q8HRS PRN 09/15/21 16:45 09/16/21 16:44 DC Potassium Chloride (Klor-Con) 40 meq 1X ONCE 09/22/21 09:00 09/22/21 09:02 DC 09/22/21 15:35 40 MEQ Prochlorperazine Edisylate (Compazine) 5 mg PACU PRN PRN 09/24/21 06:00 09/24/21 18:00 DC Propofol (Diprivan) 200 mg STK-MED ONCE 09/24/21 11:40 09/24/21 11:40 DC Ringer's Solution 1,000 ml @ 30 mls/hr Q24H 09/24/21 06:00 09/24/21 17:59 DC Sertraline HCl (Zoloft) 12.5 mg DAILY 09/16/21 09:00 09/23/21 08:51 12.5 MG Sodium Chloride (Normal Saline Flush) 3 ml QSHIFT PRN 09/24/21 11:30 Succinylcholine Chloride (Anectine) 200 mg STK-MED ONCE 09/24/21 07:04 09/24/21 07:04 DC Vitamin A/Vitamin D (Vitamin A & D Ointment) 1 germain BID 09/17/21 21:00 09/24/21 21:00 1 GERMAIN Lab Laboratory Tests Test 09/24/21 10:43 09/24/21 16:41 09/24/21 20:36 09/25/21 04:55 Glucose (Fingerstick) 150 mg/dL (70-99) 125 mg/dL (70-99) 141 mg/dL (70-99) Hemoglobin 7.8 g/dL (13.0-17.5) Sodium Level 143 mmol/L (136-145) Potassium Level 3.5 mmol/L (3.5-5.1) Chloride Level 111 mmol/L (98-107) Carbon Dioxide Level 19 mmol/L (21-32) Anion Gap 13 (6-14) Blood Urea Nitrogen 30 mg/dL (8-26) Creatinine 3.0 mg/dL (0.7-1.3) Estimated GFR (Cockcroft-Gault) 24.7 Glucose Level 155 mg/dL (70-99) Calcium Level 8.2 mg/dL (8.5-10.1) Test 09/25/21 07:47 Glucose (Fingerstick) 152 mg/dL (70-99) Results All relevant outside records, renal labs, imaging studies, telemetry/EKG's were reviewed. Justicifation of Admission Dx: Justifications for Admission: Justification of Admission Dx: N/A MELA MENDOZA MD September 25, 2021 08:55
[2021-09-25] MEDS: ASCORBIC ACID 500 MG TABLET PO SCH ×2 (09:00→21:43)
[2021-09-25] MEDS: CEFDINIR 300 MG CAPSULE PO SCH ×2 (09:00→21:43)
[2021-09-25] MEDS: FINASTERIDE 5 MG TABLET. PO SCH (09:00)
[2021-09-25] MEDS: VITS A & D/LANOLIN TOPICAL OINTMENT 42GM TUBE. TP SCH ×2 (09:00→21:00)
[2021-09-25] MEDS: busPIRone 5 MG TABLET. PO SCH ×2 (09:00→21:42)
[2021-09-25] MEDS: SERTRALINE 25 MG TABLET. PO SCH (09:00)
[2021-09-25] MEDS: LACTOBACILLUS RHAMNOSUS GG 1 CAPSULE. PO SCH ×2 (09:00→21:43)
[2021-09-25] MEDS: MULTIVITAMIN with MINERAL TABLET. PO SCH (09:00)
--- NOTE | 2021-09-25 10:07 | PN ---
DATE: 09/25/2021 SUBJECTIVE: The patient is resting, slightly propped up in bed, in no apparent respiratory distress, and sleepy but arousable. On questioning him, denied any complaint. The nursing staff stated that he is more edematous today. He apparently has had a cystoscopy done yesterday with difficulty. According to the urologist, he managed to perform cystoscopy noting multiple bladder masses throughout the bladder. He was unable to identify ureteral orifices and it was determined that the patient has metastatic bladder cancer. He did insert a 20 Portuguese [place] tip Latif catheter over the wire. I have spoken with Dr. Cantrell about his chemotherapy; however, given his age and comorbidities and he probably will need eventually hemodialysis. I spoke with his daughter and recommended hospice and comfort care given that logistically, it is going to be difficult for him to be dialyzed as an outpatient and he agreed to discharge him back to [facility] on hospice. We will consult hospice agency and will eventually discharge him back to [facility] tomorrow. PHYSICAL EXAMINATION: GENERAL: When I examined him today, he looked pale, not jaundiced, cyanosed, no lymphadenopathy, no thyromegaly, no jugular venous distention, but generalized anasarca. VITAL SIGNS: His heart rate was 89, blood pressure was 143/74, temperature was 98.4, respiratory rate was 16 and oxygen saturation was 97% on room air. HEAD, EYES, EARS, NOSE, AND THROAT: Normocephalic, atraumatic. NECK: Supple. HEART: Showed normal first and second heart sounds. No gallop, rub or murmur. CHEST: Clear to auscultation, no crepitation or rhonchi. ABDOMEN: Distended, soft, nontender. NEUROLOGIC: He was sleepy, but arousable. All his cranial nerves intact. He moves upper extremities without difficulty, is mostly bedbound. He has an indwelling Latif catheter. His intake was 360, output was 1200. LABORATORY DATA: His white cell count this morning was 12.2, hemoglobin 7.8, hematocrit 74 and platelet count 255,000. His chemistry this morning showed a serum sodium 143, potassium 3.5, chloride 111, bicarbonate 19, anion gap of 13, BUN 30, creatinine 3, estimated GFR was 24 mL per minute. His glucose 155 and calcium was 8.2. ASSESSMENT: 1. In summary, this is a 75-year-old -Irish male patient with recurrent episode of gross hematuria and acute blood loss anemia. He has so far received 2 units of packed RBCs. Hemoglobin today was 7.6. 2. Urinary tract infection with growth of Proteus mirabilis, treated with IV ceftriaxone. He is now on cefdinir 300 mg, should be once a day. 3. Acute on chronic kidney injury. His serum creatinine is steadily rising, today is 3 mg/dL. 4. Bladder cancer with bilateral hydronephrosis and metastatic disease in the form of retroperitoneal adenopathy. 5. He has deep vein thrombosis of his left lower extremity for which he had an inferior vena cava filter given that he was not considered a candidate for oral anticoagulation. 6. The patient has multiple other medical problems including hypertension, type 2 diabetes, benign prostatic hypertrophy. PLAN: To consider, they will discharge him on hospice. I have spoken with his daughter who was agreeable to that. I spoke with the [facility]. They will evaluate him and will be discharged back there to [facility]. SABINE GIRARD: Parminder TID: [id number]
[2021-09-25 10:55] VITALS: BP 133/60
--- NOTE | 2021-09-25 13:06 | PDOC2 ---
CONSULT Date of Consult Date of Consult DATE: 09/25/21 TIME: 12:59 Reason for Consult Reason for Consult: Bladder cancer Referring Physician Referring Physician: Dr. Austin Identification/Chief Complaint Chief Complaint Anemia Source Source: Chart review History of Present Illness Reason for Visit: Logan Mcelroy is a 75-year-old male with history of type 2 diabetes, bladder cancer, hydronephrosis secondary to bladder cancer, iron deficiency anemia secondary to chronic blood loss who has been admitted to [facility] from his nursing facility due to low hemoglobin of 6.1. He was found to have bladder mass with pelvic lymphadenopathy as well as liver lesions earlier this year during hospitalizations at [facility]. He has previously followed with urology at [facility]. Not previously seen here by medical oncology. He was admitted and transfused with improvement in hemoglobin. Cystoscopy was attempted yesterday and showed multifocal bladder masses. Repeat CT without contrast obtained during this hospitalization did not visualize liver lesions but did report progression of previously seen intra-abdominal and pelvic lymphadenopathy. Medical oncology consultation has been requested for further recommendations regarding management. Social History ALCOHOL: none Drugs: None Current Problem List Problem List Problems Medical Problems: (1) Anemia Status: Acute (2) ARF (acute renal failure) Status: Acute Current Medications Current Medications Current Medications Ondansetron HCl (Zofran) 4 mg PRN Q8HRS PRN IVP NAUSEA/VOMITING; Start 09/15/21 at 16:45; Stop 09/16/21 at 16:44; Status DC Morphine Sulfate (Morphine Sulfate) 4 mg PRN Q2HR PRN IVP PAIN; Start 09/15/21 at 16:45; Stop 09/16/21 at 16:44; Status DC Acetaminophen (Tylenol) 650 mg PRN Q4HRS PRN PO FEVER > 100.3'F Last administered on 09/15/21at 18:16; Start 09/15/21 at 16:45; Stop 09/16/21 at 16:44; Status DC Buspirone HCl (Buspar) 5 mg BID PO Last administered on 09/24/21at 21:42; Start 09/15/21 at 21:00 Ferrous Sulfate (Feosol) 325 mg BID WMEALS PO Last administered on 09/24/21at 17:40; Start 09/16/21 at 08:00 Albuterol/ Ipratropium (Duoneb) 3 ml QID NEB Last administered on 09/25/21 11:57; Start 09/15/21 at 21:00 Lactobacillus Rhamnosus (Culturelle) 1 cap BID PO Last administered on 09/24/21 21:43; Start 09/15/21 at 21:00 Levothyroxine Sodium (Synthroid) 88 mcg DAILY06 PO Last administered on 09/25/21 05:41; Start 09/16/21 at 06:00 Ondansetron HCl (Zofran Odt) 4 mg Q8HRS PO Last administered on 09/25/21 05:41; Start 09/15/21 at 22:00 Sertraline HCl (Zoloft) 12.5 mg DAILY PO Last administered on 09/23/21 08:51; Start 09/16/21 at 09:00 Sodium Chloride 1,000 ml @ 100 mls/hr Q10H IV Last administered on 09/23/21 02:00; Start 09/16/21 at 09:30; Stop 09/23/21 at 09:02; Status DC Finasteride (Proscar) 5 mg DAILY PO Last administered on 09/23/21 08:50; Start 09/16/21 at 11:00 Multivitamins (Thera M Plus) 1 tab DAILY PO Last administered on 09/23/21 08:51; Start 09/17/21 at 10:00 Ascorbic Acid (Vitamin C) 500 mg BID PO Last administered on 09/24/21 21:43; Start 09/17/21 at 10:00 Vitamin A/Vitamin D (Vitamin A & D Ointment) 1 germain BID TP Last administered on 09/24/21at 21:00; Start 09/17/21 at 21:00 Ceftriaxone Sodium (Rocephin) 1 gm Q24H IVP Last administered on 09/20/21 17:10; Start 09/17/21 at 16:00; Stop 09/21/21 at 12:28; Status DC Fentanyl Citrate (Fentanyl 2ml Vial) 50 mcg PRN Q4HRS PRN IVP PAIN Last administered on 09/20/21at 20:09; Start 09/18/21 at 12:00 Cefdinir (Omnicef) 300 mg BID PO Last administered on 5/26/22at 21:42; Start 09/21/21 at 21:00 Potassium Chloride (Klor-Con) 40 meq 1X ONCE PO Last administered on 09/22/21at 15:35; Start 09/22/21 at 09:00; Stop 09/22/21 at 09:02; Status DC Dextrose 1,000 ml @ 100 mls/hr Q10H IV Last administered on 09/25/21at 05:42; Start 09/23/21 at 09:30 Insulin Human Lispro (HumaLOG) 0-7 UNITS QIDACHS SQ ; Start 09/23/21 at 11:30 Dextrose (Dextrose 50%-Water Syringe) 12.5 gm PRN Q15MIN PRN IV SEE COMMENTS; Start 09/23/21 at 09:15 Fentanyl Citrate (Fentanyl 2ml Vial) 25 mcg PRN Q5MIN PRN IVP MILD PAIN 1-3; Start 09/24/21 at 06:00; Stop 09/24/21 at 18:00; Status DC Fentanyl Citrate (Fentanyl 2ml Vial) 50 mcg PRN Q5MIN PRN IVP MODERATE PAIN 4- 6; Start 09/24/21 at 06:00; Stop 09/24/21 at 18:00; Status DC Morphine Sulfate (Morphine Sulfate) 1 mg PRN Q10MIN PRN IVP SEVERE PAIN 7-10; Start 09/24/21 at 06:00; Stop 09/24/21 at 18:00; Status DC Ringer's Solution 1,000 ml @ 30 mls/hr Q24H IV ; Start 09/24/21 at 06:00; Stop 09/24/21 at 17:59; Status DC Hydromorphone HCl (Dilaudid) 0.5 mg PRN Q10MIN PRN IVP SEVERE PAIN 7-10, 2nd CHOICE; Start 09/24/21 at 06:00; Stop 09/24/21 at 18:00; Status DC Prochlorperazine Edisylate (Compazine) 5 mg PACU PRN PRN IVP NAUSEA, MRX1; Start 09/24/21 at 06:00; Stop 09/24/21 at 18:00; Status DC Succinylcholine Chloride (Anectine) 200 mg STK-MED ONCE .ROUTE ; Start 09/24/21 at 07:04; Stop 09/24/21 at 07:04; Status DC Iohexol (Omnipaque 300 Mg/ml) 50 ml STK-MED ONCE .ROUTE ; Start 09/24/21 at 10:28; Stop 09/24/21 at 10:29; Status DC Lidocaine HCl (Glydo (Lidocaine) Jelly) 6 germain STK-MED ONCE .ROUTE ; Start 09/24/21 at 10:29; Stop 09/24/21 at 10:30; Status Cancel Iohexol (Omnipaque 300 Mg/ml) 50 ml STK-MED ONCE .ROUTE ; Start 09/24/21 at 10:29; Stop 09/24/21 at 10:29; Status DC Lidocaine HCl (Glydo (Lidocaine) Jelly) 6 germain STK-MED ONCE .ROUTE ; Start 09/24/21 at 10:29; Stop 09/24/21 at 10:29; Status DC Sodium Chloride 1,000 ml @ 0 mls/hr 1X ONCE IV Last administered on 09/24/21at 10:45; Start 09/24/21 at 10:45; Stop 09/24/21 at 10:51; Status DC Cefazolin Sodium/ Dextrose 50 ml @ As Directed STK-MED ONCE IV ; Start 09/24/21 at 11:09; Stop 09/24/21 at 11:09; Status DC Sodium Chloride (Normal Saline Flush) 3 ml QSHIFT PRN IV AFTER MEDS AND BLOOD DRAWS; Start 09/24/21 at 11:30 Propofol (Diprivan) 200 mg STK-MED ONCE IV ; Start 09/24/21 at 11:40; Stop 09/24/21 at 11:40; Status DC Lidocaine HCl (Xylocaine-Mpf 1% 5ml Vial) 5 ml STK-MED ONCE .ROUTE ; Start 09/24/21 at 11:40; Stop 09/24/21 at 11:40; Status DC Fentanyl Citrate (Fentanyl 2ml Vial) 100 mcg STK-MED ONCE .ROUTE ; Start 09/24/21 at 11:40; Stop 09/24/21 at 11:41; Status DC Active Scripts Active Reported Buspirone Hcl 5 Mg Tablet 1 Tab PO BID A and D Ointment (Vits A and D/White Pet/Lanolin) 42.5 Gm Oint...g. 42.5 Gm TP PRN Q1HR PRN Dialyvite With Zinc Tablet (Vit B Cplx #11/Fa/C/Biot/Zn Ox) 1 Each Tablet 1 Tab PO DAILY 30 Days Sertraline Hcl Oral Conc (Sertraline Hcl) 20 Mg/1 Ml Oral.conc 12.5 Mg PO DAILY Ondansetron Odt (Ondansetron) 4 Mg Tab.rapdis 1 Tab PO PRN Q6-8HRS Levothyroxine Sodium 88 Mcg Tablet 1 Tab PO DAILY06 Culturelle (Lactobacillus Rhamnosus Gg) 1 Each Cap.sprink 1 Cap PO BID 30 Days Duoneb 0.5-3(2.5) Mg/3 Ml (Albuterol/Ipratropium) 3 Ml Ampul.neb 3 Ml NEB QID Ferrous Sulfate 325 Mg Tablet 1 Tab PO BID WMEALS Vitamin C (Ascorbic Acid) 500 Mg Capsule.er 1 Cap PO DAILY 30 Days Acetaminophen 325 Mg Tablet 2 Tab PO PRN Q4-6HRS PRN 24 Days Multi Vitamin Daily (Multivitamin) 1 Each Tablet 1 Tab PO DAILY 30 Days Allergies Allergies: Coded Allergies: No Known Drug Allergies (Unverified , 09/24/21) ROS Review of System Negative unless stated otherwise in HPI Physical Exam General: Alert, Oriented X3 HEENT: Atraumatic Lungs: Clear to auscultation Abdomen: Normal bowel sounds, Soft Extremities: No cyanosis Skin: No breakdown Vitals VITALS Vital Signs Date Time Temp Pulse Resp B/P (MAP) Pulse Ox O2 Delivery O2 Flow Rate FiO2 09/25/21 11:57 96 Room Air 09/25/21 10:55 98.7 81 18 133/60 (84) 98.7 09/24/21 12:37 10.0 Labs Labs Laboratory Tests Test 09/23/21 13:30 09/23/21 21:39 09/24/21 05:25 09/24/21 07:55 Coronavirus (COVID-19)(PCR) Not detected (NOT DETECTD) SARS-CoV-2 Antigen (Rapid) Negative (NEGATIVE) Glucose (Fingerstick) 172 mg/dL (70-99) 145 mg/dL (70-99) White Blood Count 12.2 x10^3/uL (4.0-11.0) Red Blood Count 3.21 x10^6/uL (4.30-5.70) Hemoglobin 7.3 g/dL (13.0-17.5) Hematocrit 23.6 % (39.0-53.0) Mean Corpuscular Volume 74 fL (79-100) Mean Corpuscular Hemoglobin 23 pg (25-35) Mean Corpuscular Hemoglobin Concent 31 g/dL (31-37) Red Cell Distribution Width 23.2 % (11.5-14.5) Platelet Count 255 x10^3/uL (140-400) Sodium Level 144 mmol/L (136-145) Potassium Level 3.6 mmol/L (3.5-5.1) Chloride Level 112 mmol/L (98-107) Carbon Dioxide Level 22 mmol/L (21-32) Anion Gap 10 (6-14) Blood Urea Nitrogen 29 mg/dL (8-26) Creatinine 2.8 mg/dL (0.7-1.3) Estimated GFR (Cockcroft-Gault) 26.7 Glucose Level 160 mg/dL (70-99) Calcium Level 8.1 mg/dL (8.5-10.1) Test 09/24/21 10:43 09/24/21 16:41 09/24/21 20:36 09/25/21 04:55 Glucose (Fingerstick) 150 mg/dL (70-99) 125 mg/dL (70-99) 141 mg/dL (70-99) Hemoglobin 7.8 g/dL (13.0-17.5) Sodium Level 143 mmol/L (136-145) Potassium Level 3.5 mmol/L (3.5-5.1) Chloride Level 111 mmol/L (98-107) Carbon Dioxide Level 19 mmol/L (21-32) Anion Gap 13 (6-14) Blood Urea Nitrogen 30 mg/dL (8-26) Creatinine 3.0 mg/dL (0.7-1.3) Estimated GFR (Cockcroft-Gault) 24.7 Glucose Level 155 mg/dL (70-99) Calcium Level 8.2 mg/dL (8.5-10.1) Test 09/25/21 07:47 09/25/21 11:22 Glucose (Fingerstick) 152 mg/dL (70-99) 134 mg/dL (70-99) Laboratory Tests Test 09/24/21 16:41 09/24/21 20:36 09/25/21 04:55 09/25/21 07:47 Glucose (Fingerstick) 125 mg/dL (70-99) 141 mg/dL (70-99) 152 mg/dL (70-99) Hemoglobin 7.8 g/dL (13.0-17.5) Sodium Level 143 mmol/L (136-145) Potassium Level 3.5 mmol/L (3.5-5.1) Chloride Level 111 mmol/L (98-107) Carbon Dioxide Level 19 mmol/L (21-32) Anion Gap 13 (6-14) Blood Urea Nitrogen 30 mg/dL (8-26) Creatinine 3.0 mg/dL (0.7-1.3) Estimated GFR (Cockcroft-Gault) 24.7 Glucose Level 155 mg/dL (70-99) Calcium Level 8.2 mg/dL (8.5-10.1) Test 09/25/21 11:22 Glucose (Fingerstick) 134 mg/dL (70-99) Assessment/Plan Assessment/Plan Assessment: Metastatic bladder cancer Iron deficiency anemia secondary to hematuria Type 2 diabetes Dementia Failure to thrive Recommendations: -Reviewed CT results with patient. CT findings are highly concerning for locally advanced bladder cancer with liver metastasis. -Given frail functional status of ECOG 3, locally advanced and metastatic bladder cancer, we discussed the risks of systemic therapy significantly outweig h any potential benefits -Recommended hospice care -Transfuse as needed to maintain hemoglobin above 7 -Rest per Dr. Norman Jaeger MD Medical Oncology/Hematology Ph: [phone] NILDA JAEGER MD September 25, 2021 13:06
[2021-09-25 15:00] VITALS: BP 139/63
--- NOTE | 2021-09-25 16:30 | PDOC ---
PROGRESS NOTE DATE OF SERVICE: DATE: 09/25/21 TIME: 16:26 CHIEF COMPLAINT: HUSAM SUBJECTIVE: HPI: Patient resting in bed. No new complaints. Osto with clear yellow urine. Discussed with nursing that patient will probably be discharged tomorrow on hospice. Problems: Problems Medical Problems: (1) Anemia Status: Acute (2) ARF (acute renal failure) Status: Acute OBJECTIVE: Vital Signs: Vital Signs Date Time Temp Pulse Resp B/P (MAP) Pulse Ox O2 Delivery O2 Flow Rate FiO2 09/25/21 15:00 99.0 86 16 139/63 (88) 93 Room Air 99.0 09/25/21 11:57 96 Room Air 09/25/21 10:55 98.7 81 18 133/60 (84) 94 Room Air 98.7 09/25/21 08:00 Room Air 09/25/21 07:28 97 Room Air 09/25/21 07:00 98.4 89 16 143/74 (97) 93 Room Air 98.4 09/25/21 03:00 99.0 103 18 149/86 (107) 93 Room Air 99.0 09/24/21 23:00 100.3 105 18 139/86 (103) 92 Room Air 100.3 09/24/21 20:31 96 Room Air 09/24/21 20:00 Room Air 09/24/21 19:00 98.6 104 18 151/75 (100) 91 Room Air 98.6 09/24/21 16:29 97 Room Air I & O Intake and Output 09/25/21 06:59 Intake Total 430 ml Output Total 1855 ml Balance -1425 ml Intake Oral 180 ml IV Total 250 ml Output Urine Total 1855 ml # Voids 1 PHYSICAL EXAM: Physical Exam: General: no acute distress, well groomed Eyes: conjunctiva anicteric, eyes full range of motion ENT: moist oral mucosa, normal dentition Neck: Trachea midline, no masses Respiratory: unlabored breathing, not using accessory muscles, no crackles or wheezes Abdomen: nontender, nondistended, no hepatosplenomegaly, no masses Skin: no rashes or skin lesions on visualized skin Psych: normal mood, affect. : soto catheter with clear yellow urine. LABS: Laboratory Tests Test 09/23/21 05:40 09/23/21 11:22 5/25/22 13:30 09/23/21 21:39 Hemoglobin 7.9 g/dL (13.0-17.5) Sodium Level 148 mmol/L (136-145) Potassium Level 3.5 mmol/L (3.5-5.1) Chloride Level 115 mmol/L (98-107) Carbon Dioxide Level 21 mmol/L (21-32) Anion Gap 12 (6-14) Blood Urea Nitrogen 32 mg/dL (8-26) Creatinine 2.8 mg/dL (0.7-1.3) Estimated GFR (Cockcroft-Gault) 26.7 Glucose Level 136 mg/dL (70-99) Calcium Level 8.3 mg/dL (8.5-10.1) Glucose (Fingerstick) 155 mg/dL (70-99) 172 mg/dL (70-99) Coronavirus (COVID-19)(PCR) Not detected (NOT DETECTD) SARS-CoV-2 Antigen (Rapid) Negative (NEGATIVE) Test 09/24/21 05:25 09/24/21 07:55 09/24/21 10:43 09/24/21 16:41 White Blood Count 12.2 x10^3/uL (4.0-11.0) Red Blood Count 3.21 x10^6/uL (4.30-5.70) Hemoglobin 7.3 g/dL (13.0-17.5) Hematocrit 23.6 % (39.0-53.0) Mean Corpuscular Volume 74 fL (79-100) Mean Corpuscular Hemoglobin 23 pg (25-35) Mean Corpuscular Hemoglobin Concent 31 g/dL (31-37) Red Cell Distribution Width 23.2 % (11.5-14.5) Platelet Count 255 x10^3/uL (140-400) Sodium Level 144 mmol/L (136-145) Potassium Level 3.6 mmol/L (3.5-5.1) Chloride Level 112 mmol/L (98-107) Carbon Dioxide Level 22 mmol/L (21-32) Anion Gap 10 (6-14) Blood Urea Nitrogen 29 mg/dL (8-26) Creatinine 2.8 mg/dL (0.7-1.3) Estimated GFR (Cockcroft-Gault) 26.7 Glucose Level 160 mg/dL (70-99) Calcium Level 8.1 mg/dL (8.5-10.1) Glucose (Fingerstick) 145 mg/dL (70-99) 150 mg/dL (70-99) 125 mg/dL (70-99) Test 09/24/21 20:36 09/25/21 04:55 09/25/21 07:47 09/25/21 11:22 Glucose (Fingerstick) 141 mg/dL (70-99) 152 mg/dL (70-99) 134 mg/dL (70-99) Hemoglobin 7.8 g/dL (13.0-17.5) Sodium Level 143 mmol/L (136-145) Potassium Level 3.5 mmol/L (3.5-5.1) Chloride Level 111 mmol/L (98-107) Carbon Dioxide Level 19 mmol/L (21-32) Anion Gap 13 (6-14) Blood Urea Nitrogen 30 mg/dL (8-26) Creatinine 3.0 mg/dL (0.7-1.3) Estimated GFR (Cockcroft-Gault) 24.7 Glucose Level 155 mg/dL (70-99) Calcium Level 8.2 mg/dL (8.5-10.1) Microbiology 09/16/21 Urine Culture - Final, Complete Proteus Mirabilis MEDICATIONS: Current Medications Medications (Trade) Dose Ordered Sig/Yasir Start Time Stop Time Status Last Admin Dose Admin Acetaminophen (Tylenol) 650 mg PRN Q4HRS PRN 09/15/21 16:45 09/16/21 16:44 DC 09/15/21 18:16 650 MG Albuterol/ Ipratropium (Duoneb) 3 ml QID 09/15/21 21:00 09/25/21 11:57 3 ML Ascorbic Acid (Vitamin C) 500 mg BID 09/17/21 10:00 09/24/21 21:43 500 MG Buspirone HCl (Buspar) 5 mg BID 09/15/21 21:00 09/24/21 21:42 5 MG Cefazolin Sodium/ Dextrose 50 ml @ As Directed STK-MED ONCE 09/24/21 11:09 09/24/21 11:09 DC Cefdinir (Omnicef) 300 mg BID 09/21/21 21:00 09/24/21 21:42 300 MG Ceftriaxone Sodium (Rocephin) 1 gm Q24H 09/17/21 16:00 09/21/21 12:28 DC 09/20/21 17:10 1 GM Dextrose (Dextrose 50%-Water Syringe) 12.5 gm PRN Q15MIN PRN 09/23/21 09:15 Fentanyl Citrate (Fentanyl 2ml Vial) 100 mcg STK-MED ONCE 09/24/21 11:40 09/24/21 11:41 DC Ferrous Sulfate (Feosol) 325 mg BID WMEALS 09/16/21 08:00 09/24/21 17:40 325 MG Finasteride (Proscar) 5 mg DAILY 09/16/21 11:00 09/23/21 08:50 5 MG Hydromorphone HCl (Dilaudid) 0.5 mg PRN Q10MIN PRN 09/24/21 06:00 09/24/21 18:00 DC Insulin Human Lispro (HumaLOG) 0-7 UNITS QIDACHS 09/23/21 11:30 Iohexol (Omnipaque 300 Mg/ml) 50 ml STK-MED ONCE 09/24/21 10:29 09/24/21 10:29 DC Lactobacillus Rhamnosus (Culturelle) 1 cap BID 09/15/21 21:00 09/24/21 21:43 1 CAP Levothyroxine Sodium (Synthroid) 88 mcg DAILY06 09/16/21 06:00 09/25/21 05:41 88 MCG Lidocaine HCl (Glydo (Lidocaine) Jelly) 6 geramin STK-MED ONCE 09/24/21 10:29 09/24/21 10:29 DC Lidocaine HCl (Xylocaine-Mpf 1% 5ml Vial) 5 ml STK-MED ONCE 09/24/21 11:40 09/24/21 11:40 DC Morphine Sulfate (Morphine Sulfate) 1 mg PRN Q10MIN PRN 09/24/21 06:00 09/24/21 18:00 DC Multivitamins (Thera M Plus) 1 tab DAILY 09/17/21 10:00 09/23/21 08:51 1 TAB Ondansetron HCl (Zofran Odt) 4 mg Q8HRS 09/15/21 22:00 09/25/21 05:41 4 MG Ondansetron HCl (Zofran) 4 mg PRN Q8HRS PRN 09/15/21 16:45 09/16/21 16:44 DC Potassium Chloride (Klor-Con) 40 meq 1X ONCE 09/22/21 09:00 09/22/21 09:02 DC 09/22/21 15:35 40 MEQ Prochlorperazine Edisylate (Compazine) 5 mg PACU PRN PRN 09/24/21 06:00 09/24/21 18:00 DC Propofol (Diprivan) 200 mg STK-MED ONCE 09/24/21 11:40 09/24/21 11:40 DC Ringer's Solution 1,000 ml @ 30 mls/hr Q24H 09/24/21 06:00 09/24/21 17:59 DC Sertraline HCl (Zoloft) 12.5 mg DAILY 09/16/21 09:00 09/23/21 08:51 12.5 MG Sodium Chloride (Normal Saline Flush) 3 ml QSHIFT PRN 09/24/21 11:30 Succinylcholine Chloride (Anectine) 200 mg STK-MED ONCE 09/24/21 07:04 09/24/21 07:04 DC Vitamin A/Vitamin D (Vitamin A & D Ointment) 1 germain BID 09/17/21 21:00 09/24/21 21:00 1 GERMAIN ASSESSMENT & PLAN - Gross hematuria Had cleared then experienced urethral trauma from soto replacement which prompted recurrent hematuria while here. Urine is peach to clear yellow off CBI currently. Hgb remains stable. Continue to monitor. --CKD Cr trending up, continue to monitor. Does have bilateral hydronephrosis. --Urinary Retention Failed on VT while inpatient. Continue with Proscar daily for prostatic bleeding. Tamsulosin. Reviewed CT imaging showing bilateral moderate hydronephrosis and bladder wall thickening, suggestive of UTI. No obstructing stone. Also found to have retroperitoneal and pelvic adenopathy concerning for malignancy. May benefit from oncology consult. There is mention of metastatic bladder cancer in notes this stay but pt declines any history of this and I do not see any records to support this diagnosis at this time. Patient taken 09/[address] Jauregui for cystoscopy, unable to advance into the bladder well but multiple masses noted. Dr Jauregui discussed this with daughter and oncology consulted. Per oncology note, patient risks outweight benefits for any metastatic treatment. Hospice discussed at that time Urology will sign off as patient going home with hospice. Please call with any questions. D/w Dr. Jauregui Problem List: Problems Medical Problems: (1) Anemia Status: Acute (2) ARF (acute renal failure) Status: Acute ANGELIQUE BERNSTEIN APRN September 25, 2021 16:30
[2021-09-25 19:00] VITALS: BP 137/61
[2021-09-25 23:00] VITALS: BP 124/55
[2021-09-26 03:00] VITALS: BP 154/81
[2021-09-26] MEDS: ONDANSETRON ODT 4 MG TAB.RAPDIS. PO SCH ×2 (06:37→14:00)
[2021-09-26] MEDS: LEVOTHYROXINE 88 MCG TABLET PO SCH (06:37)
[2021-09-26 07:00] VITALS: BP 135/66
[2021-09-26] MEDS: IPRATRPIUM/ALBUTEROL 0.5/2.5MG 3 ML NEBU. NEB SCH ×2 (07:03→12:15)
[2021-09-26] MEDS: IV DEXTROSE 5% 1,000 ML IV SCH (07:30)
[2021-09-26] MEDS: INSULIN LISPRO 300 UNITS/3 ML VIAL. SQ SCH ×2 (07:30→11:30)
[2021-09-26 08:00] LABS: CALCIUM 8.5 mg/dL (8.5-10.1); CREATININE 3.1 mg/dL (0.7-1.3); GFR 23.8; POTASSIUM 3.8 mmol/L (3.5-5.1)
[2021-09-26] MEDS: FINASTERIDE 5 MG TABLET. PO SCH (08:54)
[2021-09-26] MEDS: VITS A & D/LANOLIN TOPICAL OINTMENT 42GM TUBE. TP SCH (08:55)
[2021-09-26] MEDS: LACTOBACILLUS RHAMNOSUS GG 1 CAPSULE. PO SCH (08:55)
[2021-09-26] MEDS: SERTRALINE 25 MG TABLET. PO SCH (08:55)
[2021-09-26] MEDS: CEFDINIR 300 MG CAPSULE PO SCH (08:55)
[2021-09-26] MEDS: MULTIVITAMIN with MINERAL TABLET. PO SCH (08:55)
[2021-09-26] MEDS: FERROUS SULFATE 325 MG TABLET. PO SCH (08:55)
[2021-09-26] MEDS: ASCORBIC ACID 500 MG TABLET PO SCH (08:55)
[2021-09-26] MEDS: busPIRone 5 MG TABLET. PO SCH (08:55)
--- NOTE | 2021-09-26 09:42 | SNU/HH DC ---
DISCHARGE ORDERS DISCHARGE INFORMATION: DISCHARGE DATE: September 26, 2021 FINAL DIAGNOSIS Problems Medical Problems: (1) Anemia Status: Acute (2) ARF (acute renal failure) Status: Acute CONDITION ON DISCHARGE: Stable CODE STATUS: Code Status: Full HOSPICE: HOSPICE: Yes HOSPICE EVAL & TREAT: Yes POST DISCHARGE ORDERS: ACTIVITY ORDERS: Resume previous activity, Activity as tolerated WEIGHT BEARING STATUS: No restrictions, Full weight bearing, As tolerated DIET AFTER DISCHARGE: Renal WOUND/INCISION CARE: Keep wound/cast CDI CHECKS AFTER DISCHARGE: CHECKS AFTER DISCHARGE: Check blood press - daily, Check blood sugar, ac/hs, Check your Temp as needed TREATMENT/EQUIPMENT ORDERS: ADAPTIVE EQUIPMENT NEEDED: None DISCHARGE MEDICATIONS: Home Meds Reported Medications Buspirone Hcl (BUSPIRONE HCL) 5 Mg Tablet, 1 TAB PO BID for anxiety, #60 TAB 2 Refills 08/10/21 Vits A and D/White Pet/Lanolin (A and D Ointment) 42.5 Gm Oint...g., 42.5 GM TP PRN Q1HR PRN for SKIN CLEANSING, MISC 08/10/21 Vit B Cplx #11/Fa/C/Biot/Zn Ox (DIALYVITE WITH ZINC TABLET) 1 Each Tablet, 1 TAB PO DAILY for supplement for 30 Days, #30 TAB 0 Refills 08/10/21 Sertraline Hcl (SERTRALINE HCL ORAL CONC) 20 Mg/1 Ml Oral.conc, 12.5 MG PO DAILY for ANTI-DEPRESSANT, ML 0 Refills 08/10/21 Ondansetron (ONDANSETRON ODT) 4 Mg Tab.rapdis, 1 TAB PO PRN Q6-8HRS for nausea, #16 TAB 08/10/21 Levothyroxine Sodium (LEVOTHYROXINE SODIUM) 88 Mcg Tablet, 1 TAB PO DAILY06 for hypothyroid, #30 TAB 5 Refills 08/10/21 Lactobacillus Rhamnosus Gg (CULTURELLE) 1 Each Cap.sprink, 1 CAP PO BID for probiotic for 30 Days, #60 CAP 0 Refills 08/10/21 Ipratropium/Albuterol Sulfate (DUONEB 0.5-3(2.5) MG/3 ML) 3 Ml Ampul.neb, 3 ML NEB QID for copd, EACH 08/10/21 Ferrous Sulfate (FERROUS SULFATE) 325 Mg Tablet, 1 TAB PO BID WMEALS for anemia, #60 TAB 3 Refills 08/10/21 Ascorbic Acid (VITAMIN C) 500 Mg Capsule.er, 1 CAP PO DAILY for supplement for 30 Days, #30 CAP 0 Refills 08/10/21 Acetaminophen (ACETAMINOPHEN) 325 Mg Tablet, 2 TAB PO PRN Q4-6HRS PRN for pain or fever for 24 Days, #100 TAB 0 Refills 08/10/21 Multivitamin (MULTI VITAMIN DAILY) 1 Each Tablet, 1 TAB PO DAILY for supplement for 30 Days, #30 TAB 0 Refills 08/22/19 CLAUDE TAPIA MD September 26, 2021 09:42
[2021-09-26] MEDS ORDERED: LORA2ORA7 PO (10:05)
[2021-09-26] MEDS ORDERED: MOR20SL SL (10:05)
[2021-09-26 11:00] VITALS: BP 139/68
--- NOTE | 2021-09-26 15:20 | NUR ---
Pt. discharged to [facility] via EMS.
== END 2021-09-26 16:10 | DRG 690 ==
LOC: ER 15:24 → 4 NORTH 17:44
PROVIDERS: ADMIT Internal Medicine; ATTEND Internal Medicine
PROC: 30233N1 Transfusion of Nonautologous Red Blood Cells into Peripheral Vein, Percutaneous Approach (ICD-10-PCS; principal; 2021-09-15)
PROC: 0TJB8ZZ Inspection of Bladder, Via Natural or Artificial Opening Endoscopic (ICD-10-PCS; 2021-09-24)
PROC: BT101ZZ Fluoroscopy of Bladder using Low Osmolar Contrast (ICD-10-PCS; 2021-09-24)
DX: N13.6 Pyonephrosis (principal); D62 Acute posthemorrhagic anemia; E87.0 Hyperosmolality and hypernatremia; I82.402 Acute embolism and thrombosis of unspecified deep veins of left lower extremity; N13.8 Other obstructive and reflux uropathy; C79.11 Secondary malignant neoplasm of bladder; G91.2 (Idiopathic) normal pressure hydrocephalus; R78.81 Bacteremia; N17.9 Acute kidney failure, unspecified; F02.80 Dementia in other diseases classified elsewhere, unspecified severity, without behavioral disturbance, psychotic disturbance, mood disturbance, and anxiety; C67.9 Malignant neoplasm of bladder, unspecified; E11.22 Type 2 diabetes mellitus with diabetic chronic kidney disease; R31.0 Gross hematuria; N18.31 Chronic kidney disease, stage 3a; B96.4 Proteus (mirabilis) (morganii) as the cause of diseases classified elsewhere; E03.9 Hypothyroidism, unspecified; G30.9 Alzheimer's disease, unspecified; I12.9 Hypertensive chronic kidney disease with stage 1 through stage 4 chronic kidney disease, or unspecified chronic kidney disease; N18.9 Chronic kidney disease, unspecified; N40.1 Benign prostatic hyperplasia with lower urinary tract symptoms; R62.7 Adult failure to thrive; Z86.14 Personal history of Methicillin resistant Staphylococcus aureus infection; Z86.718 Personal history of other venous thrombosis and embolism; Z95.828 Presence of other vascular implants and grafts; Z98.2 Presence of cerebrospinal fluid drainage device; Z99.3 Dependence on wheelchair; D49.6 Neoplasm of unspecified behavior of brain; F32.A Depression, unspecified; Z87.442 Personal history of urinary calculi; F41.9 Anxiety disorder, unspecified; K76.9 Liver disease, unspecified; R13.10 Dysphagia, unspecified; R59.0 Localized enlarged lymph nodes; Z20.822 Contact with and (suspected) exposure to COVID-19
CPT/HCPCS: 36415; 36430; 74176; 76000; 80048; 80053; 81001; 82962; 84443; 85018; 85025; 85027; 86850; 86900; 86901; 86920; 87077; 87086; 87186; 87426; 94640; 94760; A4314; A4338; A4657; A4911; A4930; A6402; C1758; C1769; J0330; J0690; J0696; J1815; J2704; J3010; J3490; J7030; J7060; P9016; Q9967; U0003; 99285-25; G0378